=== PATIENT | male | born 1940 | race Caucasian/White ===

== ENCOUNTER → 2020-03-01 16:35 | Outpatient (BNVA) | payer MEDICARE, BC, SELFPAY | PROVIDERS: Family Provider Family Medicine; PCP Family Medicine; Visit Provider Internal Medicine | DX: R07.9 Chest pain, unspecified (principal) | CPT/HCPCS: 80048; 85025; 87635 ==

== ENCOUNTER 2020-03-05 07:57 | Day surgery (SDC) | payer MEDICARE, BC, SELFPAY ==
[2020-03-02 10:37] VITALS: BMI 29.4
[2020-03-05] VITALS (10 sets, daily range): BP systolic 106–158; BP diastolic 52–81; PULSE 39–60; RESP 12–21; TEMP 36.7; O2SAT 88–96
--- NOTE | 2020-03-05 09:00 | XACV_ITS ---
Exam Room: 1 Ht: 180 cm Wt: 96 kg BSA: 2.21 m2 Gender: Male : 1940 Any Known Allergies: Other Exam Priority: Routine Procedure(s): Procedure Description: Diagnostic procedure Procedure Description: Left Heart Catheterization Procedure Description: Left ventriculography Procedure Description: Venous Graft Catheterization Procedure Description: HAJI Graft Catheterization Procedure Description: Coronary Angiography Diagnostic Cath Status: Elective Diagnostic Findings * CX has luminal irregularities. OM1 has severe mid vessel stenosis. Flow is seen from patent SVG graft.. * LM has luminal irregularities. * LAD arises from left main artery. It gives rise to a large diagonal branch. Diagonal artery has * serial 60 to 70% stenosis in it. * The LAD has chronic total occlusion. mLAD: Severe 100% stenosis, MAR: 0 flow. Competitive flow from patent HAJI seen.. * RCA arises from right coronary cusp. * It has mild luminal irregularities. * Mid * to distal PDA has * severe 80% stenosis. * At that point it is a small sized vessel. RPDA: Severe 80% stenosis, MAR: 3 flow. * Two grafts visualized. * HAJI to dLAD: patent. * SVG to 1st OM: patent. * Coronary angiography shows right dominance. Conclusions 1. Severe blackfeet coronary artery disease.. 2. All grafts patent. 3. Patient has prior CABG. 4. Mild left ventricular systolic dysfunction. Ejection fraction of 45%. Recommendations * Mid to distal right PDA has severe stenosis. It is a small vessel at that point. If patient continues having chest pain on optimal medical therapy, we can consider intervening on this vessel. We will try optimizing medical therapy at this time.. * Initiate isosorbide mononitrate 30 mg daily. * Aggressive risk factor control. * Follow-up * with cardiology clinic. Interventional RX Recommendation: medical therapy and/or counseling Diagnostic RX Recommendation: medical therapy and/or counseling Ventriculography Ejection Fraction: 45.0 % Pressures Phase:Rest AO : 112 / 74 ( 79 ) @ 4:51:00 AM 118 / 52 ( 77 ) @ 4:54:00 AM 104 / 45 ( 67 ) @ 5:01:00 AM 108 / 39 ( 64 ) @ 5:13:00 AM LV : 107 / -2 / @ 5:12:00 AM 107 / -4 / @ 5:13:00 AM Clinical Evaluation EBL: 5mL-10mL Procedural Details Procedure Consent Obtained. Pre-Procedure Time Out. Identified patient by full name and date of as verbalized by the patient/guarantor. Does the consent match the physician's order: Yes. Accurate & Complete Informed Consent: Yes. Inpatient/Outpatient History & Physical on Chart: Yes. If H&P is completed, is and addenduem needed: No; If yes, is the addendum complete: N/A. Visualize and Verify Site with Patient/Guarantor: N/A. Relevant Radiology Images available: Yes. Pre-op teaching completed and patient verbalized understanding. The risks, benefits, and alternatives of sedation and/or procedure were discussed by physician. The patient agrees to continue. Procedure started. HA Clinical Fraility Score: 3: Managing Well. [facility] Indications: New Onset Angina. Chest Pain Symptom Assessment: Typical Angina Symptoms. Correct patient, site and procedure confirmed by cath team. Current diagnosis: Chest Pain. PERRLA. Strong, equal hand box lidder bilaterally. Lungs clear x 5 lobes. Current Diagnosis : Chest Pain. Physician arrived. IV Site on Arrival: 20 gauge in the left anticubital. IV Fluids: 0.9% NaCl at KVO. 0 mL infused prior to center medical and lab director. Pre Procedural Pulses: bilateral dorsalis pedis was 1+. Pre Procedural Pulses: bilateral posterior tibial was 1+. Pre Procedural Pulses: bilateral radial was 2+. Oxygen started at 2liters/min via nasal canula. bilateral groins was prepped with chloroprep then draped in the usual sterile fashion. Baseline sample Acquired. HR: 0 BPM. Physician scrubbed in. Immediate Pre-Procedure Time Out. Correct Patient: Yes; Correct Procedure: Yes; Correct Site: Yes; Correct Patient Position: Yes; Correct Supplies: Yes; Dried Flammable Prep: Yes; Blood Products Available: N/A;. Lidocaine 1% infiltrated to the right groin. Arterial access obtained with micropuncture set. A 5 serbian JL4 catheter in over wire. Multiple views taken of left coronary artery. Catheter inserted over the standard wire. A 5 serbian JR4 catheter in over wire. Multiple views taken of right coronary artery. SVG's to OM visualized and patent. Catheter removed over the exchange wire. A 5 serbian IM catheter in over wire. HAJI to LAD visualized. Catheter removed over the exchange wire. A 5 serbian Angled Pig catheter in over wire. Physician review of cine films. Side port of sheath attached to Normal Saline flush at KVO to maintain patency. EDP Sample taken: LV 107/-3,6; HR: 19 BPM; SpO2: 98%. LV gram performed in [place] @ 10 mL/second for a total of 30 mL. EDP Sample taken: LV 107/-5,5; HR: 51 BPM; SpO2: 97%. Pullback taken: LV Off; AO Off; Mean: , Peak to Peak: , SEP: ; HR: 35 BPM; SpO2: 98%. Catheter removed over the exchange wire. A Right femoral angiogram was performed to determine safe placement of closure device. AngioSeal Lot# [id number] placed without complications. No signs or symptoms of hematoma noted. Sterile dressing applied per usual sterile fashion. A Angio-Seal VIP ([facility]) was successful obtaining hemostatsis at the Right Femoral artery insertion site. Post Procedure: Pulses reassessed and unchanged. PERRLA. Strong, equal hand box lidder bilaterally. No VTE prophylaxis required. Medication's Wasted: Lidocaine 1% = 10 mL. Total IV fluids: 50 mL. Contrast type used: Omnipaque 300 mgI/mL, 500 mL bottle. Post-op diagnosis: CAD. Complications: None. Estimated blood loss: 5mL-10mL. Procedure completed. Medication's Wasted: Heparin = 1000 units. Patient transferred by bed to ICU. Vital chart was stopped. Access Site Site: Right Femoral artery Sheath Size: 6 Fr Hemostasis Method: Angio-Seal VIP ([facility]) Hemostasis Success: Successful Procedure Medications Start: 10:37 AM Stop: 10:37 AM Medication: Versed Amount: 1 mg Route: I.V. Start: 10:37 AM Stop: 10:37 AM Medication: Fentanyl Amount: 50 mcg Route: I.V. Start: 10:52 AM Stop: 10:52 AM Medication: Versed Amount: 1 mg Route: I.V. Start: 10:52 AM Stop: 10:52 AM Medication: Fentanyl Amount: 50 mcg Route: I.V. I, the attending physician, have reviewed and verified all procedure medications. Yes, all medications given per verbal order History/Risk Factors Hypertension: Yes Dyslipidemia: No Peripheral Arterial Disease (PAD): No Myocardial Infarction (AL): No Obesity: No Renal Disease: No Prior Interventions PCI: No CABG: Yes Valve Surgery: No Report Signatures Finalized by Yifan Rivero MD on 03/18/2020 05:40 PM
[2020-03-05] MEDS: aspirin 325 mg Tablet PO (09:13)
[2020-03-05] MEDS: diphenhydrAMINE 50 mg Capsule PO (09:13)
--- NOTE | 2020-03-05 10:36 | W.PM.OPSUD ---
Surgery/Procedure H&P Update DATE OF PROCEDURE: March 05, 2020 DATE H&P PERFORMED: 03/01/20 H&P UPDATE INFORMATION: I have reviewed H&P completed within last 30 days, I have examined patient prior to procedure and No changes to prior documentation PREOP DIAGNOSIS: UNSTABLE ANGINA PRIMARY INDICATION FOR PROCEDURE: UNSTABLE ANGINA PLANNED PROCEDURE: Operation Date: 03/05/20 10:00 Proposed Procedures p Left Cardiac Catheterization 15172 R07.9(Left) - Yifan Rivero M.D Possible percutaneous coronary intervention PATIENT REASSESSED PRIOR TO SEDATION, WITH NO CHANGE NOTED: Yes PHYSICAL EXAM: alert, oriented x 3 and clear to auscultation bilaterally AIRWAY EVAL/ANESTHESIA PLAN: ASA II, ASA III, Risks, benefits & alternatives of sedation and/or procedure discussed and Patient agrees to continue as planned
--- NOTE | 2020-03-05 16:15 | PC.NURSE ---
Patient walked in unit without difficulty. Respirations unlabored. HR 76-80. Contacted Dr. Rivero to update him prior to patient leaving.
== END 2020-03-05 16:45 | disposition home or self-care (01) ==
LOC: CCL 08:05 → ICU 11:52 → CCL 03-12 14:35 → ICU 04-10 10:05
PROVIDERS: Family Provider Family Medicine; PCP Family Medicine; Visit Provider Internal Medicine
DX: I25.110 Atherosclerotic heart disease of native coronary artery with unstable angina pectoris (principal); Z95.1 Presence of aortocoronary bypass graft; I50.22 Chronic systolic (congestive) heart failure; I11.0 Hypertensive heart disease with heart failure; I48.91 Unspecified atrial fibrillation; E11.9 Type 2 diabetes mellitus without complications; E78.5 Hyperlipidemia, unspecified
CPT/HCPCS: 12345; 36415; 93459; C1760; C1769; C1887; C1894; G0378; J1644; J2250; J3010; J7030; Q0163; Q9967

== ENCOUNTER → 2020-03-13 09:05 | Outpatient (BNVA) | payer MEDICARE, BC, SELFPAY | PROVIDERS: Family Provider Family Medicine; PCP Family Medicine; Visit Provider Nurse Practitioner Family | DX: I25.10 Atherosclerotic heart disease of native coronary artery without angina pectoris (principal) | CPT/HCPCS: 80048 ==

== ENCOUNTER 2020-11-08 16:11 | Outpatient (CLI) | payer MEDICARE, BC, SELFPAY ==
--- NOTE | 2020-11-08 16:45 | XR_ITS ---
WS: [id number] XR chest 2V insp/exp 89047 REASON FOR EXAM: R00.1 - Bradycardia, unspecified FINDINGS: Sternal sutures and previous coronary artery bypass surgery. Mild to moderate tortuosity the thoracic aorta. Heart size at the upper limits of normal. Calcified granulomatous disease in both hemithoraces. No active pulmonary parenchymal or pleural dise ase. Degenerative spondylosis in the mid and lower thoracic spine bilateral shoulder replacements. The chest is unchanged compared to 11/17/2018. XR/XR chest 2V insp/exp [id number] IMPRESSION: No acute abnormality.
== END 2020-11-08 16:12 | disposition home or self-care (01) ==
LOC: RAD 16:16
PROVIDERS: PCP Family Medicine; Visit Provider Internal Medicine Cardiovascular Disease
DX: Z01.818 Encounter for other preprocedural examination (principal); R00.1 Bradycardia, unspecified; Z20.822 Contact with and (suspected) exposure to COVID-19; I11.0 Hypertensive heart disease with heart failure; I50.9 Heart failure, unspecified; E78.5 Hyperlipidemia, unspecified; E11.9 Type 2 diabetes mellitus without complications; I48.91 Unspecified atrial fibrillation; I25.10 Atherosclerotic heart disease of native coronary artery without angina pectoris
CPT/HCPCS: 71046; 80048; 85025; 85610; 86850; 86900; 87635

== ENCOUNTER 2020-11-09 08:30 | Outpatient (CLI) | payer MEDICARE, BC, SELFPAY ==
--- NOTE | 2020-11-09 08:49 | USCV_ITS ---
Artis Boston Age: 80 Gender: M : 1940 Exam Date: 11/09/2020 09:08 Ordering Phys: Elvira Malave MD ([email or web address]) Technologist: Jaymie Iyer Exam Location: [facility] [place] Indication: dyspnea, unspecified. pre pacemaker BP: 130 / 90 HR: 48 Rhythm: Sinus Technical Quality: Adequate MEASUREMENTS (Male / Female) Normal Values 2D ECHO LV Diastolic Diameter PLAX 5.7 cm 4.2 - 5.9 / 3.9 - 5.3 cm LV Systolic Diameter PLAX 4.1 cm IVS Diastolic Thickness 1.1 cm 0.6 - 1.0 / 0.6 - 0.9 cm IVS Systolic Thickness 1.3 cm LVPW Diastolic Thickness 0.9 cm 0.6 - 1.0 / 0.6 - 0.9 cm LVPW Systolic Thickness 2.0 cm LV Ejection Fraction 2D Teich 52.4 % LV Ejection Fraction MOD 2C 48.0 % LV Ejection Fraction 2C AL 47.1 % LA Width 4.9 cm LA Height 6.8 cm RA Width 3.4 cm RA Height 5.7 cm Aorta at Sinotubular Diameter 3.9 cm M-MODE LV Diastolic Diameter MM 6.1 cm 4.2 - 5.9 / 3.9 - 5.3 cm LV Systolic Diameter MM 4.9 cm LV Ejection Fraction MM Teich 38.7 % IVS Diastolic Thickness MM 0.7 cm 0.6 - 1.0 / 0.6 - 0.9 cm IVS Systolic Thickness MM 0.8 cm LVPW Diastolic Thickness MM 0.9 cm 0.6 - 1.0 / 0.6 - 0.9 cm LVPW Systolic Thickness MM 0.0 cm DOPPLER AV Peak Velocity 108.0 cm/s LVOT Peak Velocity 92.0 cm/s MV Peak Velocity 83.0 cm/s MV Area PHT 3.1 cm squared Mitral E to A Ratio 5.1 MV E' Velocity 44.0 cm/s Mitral E to MV E' Ratio 9.3 Mitral E to LV E' Lateral Ratio 6.2 Mitral E to LV E' Septal Ratio 18.6 TR Peak Velocity 195.5 cm/s TR Peak Gradient 15.3 mmHg Right Atrial Pressure 3.0 mmHg Pulmonary Artery Systolic Pressu 18.3 mmHg PV Peak Velocity 89.0 cm/s RV Acceleration Time 0.1 s RV Ejection Time 0.3 s RV AcT/ET 0.2 FINDINGS Left Ventricle Severe diffuse hypokinesia of the septum, anteroseptum and LV apex. Mild diffuse hypokinesia of the inferior wall segments. LV ejection fraction around 40-45%(visual) Right Ventricle The right ventricle is normal in size and function. Right Atrium Mildly increased right atrial size. Left Atrium Moderately increased left atrial size. Mitral Valve Trace mitral valve regurgitation. Aortic Valve No gross abnormalities noted Tricuspid Valve Mild tricuspid valve regurgitation. Estimated pulmonary artery peak systolic pressure of 18 mmHg Pulmonic Valve No gross abnormalities noted Pericardium Normal pericardium without effusion. Aorta Normal ascending aorta dimension. CONCLUSIONS Normal LV size with diminished ejection fraction of 40 to 45%. Wall motion abnormalities as mentioned above. Moderately dilated left atrium with a mildly dilated right atrium. Mild tricuspid valve regurgitation. Estimated pulmonary artery peak systolic pressure of 18 mmHg. Trace mitral valve regurgitation. There is no pericardial effusion. There are no intracardiac masses. No previous study is available for comparison. Dr Elvira Malave MD FAC (Electronically Signed) Final Date: 09 November 2020 18:09 S
[2020-11-09 09:25] LABS: Basophils # 0.1 10^3/uL (0.0-0.1); Basophils % 0.7 %; Eosinophils # 0.2 10^3/uL (0.0-0.8); Eosinophils % 1.8 %; Hematocrit 46.6 % (42.0-52.0); Hemoglobin 15.4 g/dL (11.7-16.6); Lymphocytes # 3.2 10^3/uL (0.8-4.8); Mean Corpuscular Hemoglobin 30.3 pg (28.0-34.0); Mean Corpuscular Volume 91.7 fl (80-94); Mean Platelet Volume 12.6 fL (7.4-10.4); Monocytes # 1.6 10^3/uL (0.2-0.9); Monocytes % 11.5 %; Neutrophils # 8.59 10^3/uL (1.8-7.7); Neutrophils % 62.6 %; Nucleated Red Blood Cells % 0 %; Platelet Count 249 10^3/cmm (130-400); Red Blood Count 5.08 10^6/uL (4.1-5.3); White Blood Count 13.7 10^3/uL (4.0-10.0)
== END 2020-11-09 08:31 | disposition home or self-care (01) ==
LOC: RAD 08:40
PROVIDERS: PCP Family Medicine; Visit Provider Internal Medicine Cardiovascular Disease
DX: R06.00 Dyspnea, unspecified (principal); D72.829 Elevated white blood cell count, unspecified; I07.1 Rheumatic tricuspid insufficiency
CPT/HCPCS: 36415; 81003; 85025; 93306

== ENCOUNTER 2020-11-12 10:02 | Observation (INO) | payer MEDICARE, BC, SELFPAY ==
[2020-11-12] VITALS (7 sets, daily range): BP systolic 107–143; BP diastolic 7–76; PULSE 48–60; RESP 12–19; TEMP 36.3–36.8; O2SAT 92–94; BMI 27.6
[2020-11-12 08:02] LABS: Basophils # 0.1 10^3/uL (0.0-0.1); Basophils % 0.8 %; Eosinophils # 0.3 10^3/uL (0.0-0.8); Hematocrit 47.5 % (42.0-52.0); Hemoglobin 15.7 g/dL (11.7-16.6); Lymphocytes # 3.3 10^3/uL (0.8-4.8); Mean Corpuscular HGB Conc 33.1 g/dL (30.0-36.0); Mean Corpuscular Hemoglobin 30.1 pg (28.0-34.0); Mean Corpuscular Volume 91.2 fl (80-94); Mean Platelet Volume 12.1 fL (7.4-10.4); Monocytes # 1.2 10^3/uL (0.2-0.9); Monocytes % 9.7 %; Neutrophils # 7.77 10^3/uL (1.8-7.7); Nucleated Red Blood Cells % 0 %; Platelet Count 277 10^3/cmm (130-400); Red Blood Count 5.21 10^6/uL (4.1-5.3); Red Cell Distribution Width 13.1 % (12.1-15.1); White Blood Count 12.7 10^3/uL (4.0-10.0)
--- NOTE | 2020-11-12 08:33 | W.PM.OPSUD ---
Surgery/Procedure H&P Update DATE OF PROCEDURE: November 12, 2020 DATE H&P PERFORMED: 11/08/20 H&P UPDATE INFORMATION: I have reviewed H&P completed within last 30 days, I have examined patient prior to procedure and No changes to prior documentation PREOP DIAGNOSIS: Symptomatic bradycardia/atrial fibrillation PRIMARY INDICATION FOR PROCEDURE: Same as above PLANNED PROCEDURE: Operation Date: 11/12/20 08:30 Proposed Procedures p Pacemaker Insertion(Not Applicable) - Elvira Malave MD Operation Date: 11/14/20 12:00 Proposed Procedures p Pacemaker Insertion(Not Applicable) - Robby Hooks MD PATIENT REASSESSED PRIOR TO SEDATION, WITH NO CHANGE NOTED: Yes PHYSICAL EXAM: alert, oriented x 3, clear to auscultation bilaterally, regular rate & rhythm and operative site marked OTHER PERTINENT EXAM FINDINGS: Alert oriented x3. Normal breath sounds. Variable first heart sound. No significant peripheral edema AIRWAY EVAL/ANESTHESIA PLAN: normal airway, see other exam findings, ASA III, Monitored Anesthesia, Local Anesthesia, Risks, benefits & alternatives of sedation and/or procedure discussed and Patient agrees to continue as planned
[2020-11-12] MEDS: HYDROcodone-acetaminophen 5-325 mg Tablet 1 TAB PO ×4 (12:10→23:44)
[2020-11-12] MEDS: dextrose 5%-sod chloride 0.45% 1,000 ML 75 ML IV ×2 (12:11→23:44)
--- NOTE | 2020-11-12 13:08 | XRR_ITS ---
PROCEDURE INFORMATION: Exam: XR Chest Exam date and time: 11/12/2020 1:08 PM Age: 80 years old Clinical indication: Device placement; Cardiac pacemaker lead placement or adjustment; Prior surgery; Surgery date: Post-operative (0-2 days); Surgery type: Pacemaker, bypass, shoulder, gb; Patient HX: Pacemaker surgery today; Additional info: Post permanent pacemaker placement; Visualize lead tip TECHNIQUE: Imaging protocol: XR of the chest. Views: 1 view. COMPARISON: CR XR chest 2V insp/exp [id number] 11/08/2020 4:57 PM FINDINGS: Tubes, catheters and devices: A permanent pacemaker appears intact. Lungs: Multiple benign calcified granulomas are present in the lungs with small benign calcified hilar lymph nodes. Pleural spaces: Unremarkable. No pleural effusion. No pneumothorax. Heart/Mediastinum: The heart is not enlarged. Bones/joints: Bilateral shoulder prostheses are present unchanged. XR/XR chest 1V [id number] IMPRESSION: No acute cardiopulmonary abnormality.
--- NOTE | 2020-11-12 14:16 | ECG_ITS ---
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
[2020-11-12] MEDS: apixaban 5 mg Tablet PO (17:37)
[2020-11-12 18:38] LABS: Glucose Point of Care 246 mg/dL (70-110)
[2020-11-13] VITALS (55 sets, daily range): BP systolic 136–141; BP diastolic 70–77; PULSE 60–76; RESP 7–24; O2SAT 92–96
[2020-11-13] MEDS: HYDROcodone-acetaminophen 5-325 mg Tablet 1 TAB PO (03:53)
--- NOTE | 2020-11-13 06:00 | ECG_ITS ---
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 Measurements Intervals [place] Rate: 60 P: [place]: QRS: -57 QRSD: 216 T: 114 QT: 528 QTc: 528 Interpretive Statements ELECTRONIC VENTRICULAR PACEMAKER ABNORMAL RHYTHM ECG Compared to ECG 11/12/2020 14:23:01 No significant changes Electronically Signed On 11-14-2020 23:41:52 CDT by Elvira Malave M.D. [email or web address] [email or web address] [email or web address] cleveland [id number]
--- NOTE | 2020-11-13 08:00 | PC.NURSE ---
Pt sitting on the side of the bed eating breakfast and talking to staff. Resp even and non-labored no distress noted. Pts drsg to right chest dry and intact. Pt had no c/o pain or discomfort at the present time. No needs voiced. Will cont to monitor.
--- NOTE | 2020-11-13 08:37 | PC.CHAP ---
Pastoral Care Encounter/Spiritual Assessment Type of Contact [] Declined household personal assistant visit [] Patient/Family/Request visit [] Outpatient visit [] Follow-up visit [] Physician referral [] Code/Alert [x] Routine visit [] Staff referral [] Actively dying [x] Patient sleeping [] Family support [] [] Out of room [] Palliative care [] [] Receiving care in room [] Pre-surgical visit [] Trauma [] Long length of stay [] ICU visit [] Other: Relational/Emotional Strength [] Patient feels connected with others/family/visitors/staff [] Distress [] Loneliness/isolation [] Abandonment Spirituality of Patient [] Person of [place] [] Attends Bahai of their [place] [] Believes in Prayer [] Reads Bible or Temple materials [] There are Spiritual issues to be addressed Attache Interventions [] Prayer [] Active listening [] Non-anxious presence [] Spiritual/emotional support [] Crisis/trauma care [] Spiritual counseling [] Bereavement support [] Provided bereavement packet [] Provided Bible/devotional materials [] Provided toy/stuffed animal, coloring book to patient or family member [] Provided Communion [] Anointing/[place] [] Salvation [] Completed spiritual assessment [] Other: Impact on Illness or Injury [] Angry [] Fearful [] Anxious [] Often cries [] Exhaustion [] Unable to work [] Unable to attend nondenominational [] Unable to walk/stand [] Unable to read [] Unable to drive [] Unable to eat/drink [] Unable to sleep [] Unable to be with family [] Patient intubated [] Other: Summary Time spent with patient
--- NOTE | 2020-11-13 09:00 | PM.PN ---
Subjective Subjective: Interval history: Patient had a permanent pacer implantation yesterday. Medications: Reviewed: Yes Medication Review Details: Current Medications Hydrocodone Bitart/Acetaminophen (Hydrocodone-Acetaminophen 5-325 Mg Tablet) 1 tab PO Q4H PRN PRN Reason: MODERATE PAIN Last Admin: 11/13/20 03:53 Dose: 1 tab Documented by: Amlodipine Besylate (Amlodipine 10 Mg Tablet) 10 mg PO DAILY [facility] Apixaban (Apixaban 5 Mg Tablet) 5 mg PO BID [facility] Last Admin: 11/12/20 17:37 Dose: 5 mg Documented by: Ezetimibe (Ezetimibe 10 Mg Tablet) 10 mg PO DAILY [facility] Folic Acid (Folic Acid 1 Mg Tablet) 1 mg PO DAILY [facility] Hydrochlorothiazide (Hydrochlorothiazide 25 Mg Tablet) 25 mg PO DAILY [facility] Sodium Chloride (Sodium Chloride 0.9%) 1,000 mls @ 75 mls/hr IV .[id number] [facility] Last Admin: 11/12/20 12:14 Dose: Not Given Documented by: Dextrose/Sodium Chloride (Dextrose 5%-Sod Chloride 0.45%) 1,000 mls @ 75 mls/hr IV .[id number] [facility] Last Admin: 11/12/20 23:44 Dose: 75 mls/hr Documented by: Insulin Glargine (Insulin Glargine 100 Units/1 Ml) 20 unit SUBCUT DAILY [facility] Levothyroxine Sodium (Levothyroxine 137 Mcg Tablet) 137 mcg PO DAILY [facility] Losartan Potassium (Losartan 50 Mg Tablet) 100 mg PO DAILY [facility] Nitroglycerin (Nitroglycerin 0.4 Mg Sublingual Tablet) 0.4 mg SUBLINGUAL Q5M PRN PRN Reason: Angina Non-Formulary Medication (Coenzyme Q10 [Ultra Coq10]) 100 mg PO DAILY [facility] Non-Formulary Medication (Empagliflozin [Jardiance]) 10 mg PO DAILY [facility] Non-Formulary Medication (Flaxseed Oil) 1,000 mg PO DAILY [facility] Non-Formulary Medication (Niacin) 500 mg PO DAILY [facility] Vitamin D (Cholecalciferol (Vitamin D3) 1,000 Unit Tablet) 2,000 unit PO DAILY [facility] Vitals/I&O/Wt Last Vital Signs Temp 98.2 F 11/12/20 20:13 Pulse 60 11/13/20 07:45 Resp 15 11/13/20 07:45 BP 136/71 09/21/21 07:45 Pulse Ox 96 11/13/20 07:45 11/12/20 11/13/20 11/13/20 22:59 06:59 14:59 Intake Total 700 / 940 1060 / 2000 Output Total 500 / 500 400 / 900 100 / 100 Balance 200 / 440 660 / 1100 -100 / -100 Weight last 48 hrs Weight 198 lb Physical Exam Narrative: EXAM NARRATIVE: GENERAL: The patient is alert and oriented times three. Not in any acute distress. HEENT: No significant pallor, icterus or lymphadenopathy.Oral cavity: There are no mucous membrane lesions. NECK: Trachea appears to be central. No masses noted. No JVD or thyromegaly appreciated. RESPIRATORY: Chest is symmetrical. No intercostals muscle retraction or any accessory muscle activation. There is no chest wall tenderness. Breath sounds are heard bilaterally. No rales or rhonchi heard. No evidence of any consolidation. BREASTS: Deferred. HEART: The heart sounds are normal. No S3 or S4. No significant murmurs. No pericardial rub ABDOMEN: No vessel pulsations or distention. No tenderness. No organomegaly appreciated. Bowel sounds are normally heard. : Deferred. RECTAL: Deferred. LYMPHATIC: No lymphadenopathy noted in the neck or groin. EXTREMITIES: No edema or cyanosis. No clubbing. Peripheral pulses are palpated in fairly good volume and amplitude MUSCULOSKELETAL: No acute joint deformities or swelling SKIN: There are no significant rashes or ecchymosis NEUROPSYCHIATRIC: The patient is alert and oriented x3. Appears to be in a good mood. No tremors or rigidity noted. Data : 11/12/20 07:45 A&P Assessment and plan (1) Atrial fibrillation: Patient is on long-term oral anticoagulation. This may be restarted tomorrow. Status: Acute Qualifiers: Atrial fibrillation type: unspecified Qualified Code(s): I48.91 - Unspecified atrial fibrillation (2) Ischemic cardiomyopathy: Currently he is compensated. May continue on the current medications. Need to consider Entresto as an outpatient Status: Acute (3) Symptomatic bradycardia: Currently resolved. Status: Acute (4) HTN (hypertension): Since the blood pressure is in the normal range, patient may not require any medication changes at this time. Advised to continue on the current measures. Status: Acute Qualifiers: Hypertension type: essential hypertension Qualified Code(s): I10 - Essential (primary) hypertension Additional A&P Information If the patient is remained stable, may be discharged home today. Attestations Medical Necessity Statement*: Discharge home today Coding Level of Care Code Acute Endorsement Clerk for [facility] Fwd Diagnoses Atrial fibrillation I48.91 Atrial fibrillation type: unspecified Ischemic cardiomyopathy I25.5 Symptomatic bradycardia R00.1 HTN (hypertension) I10 Hypertension type: essential hypertension
[2020-11-13] MEDS: apixaban 5 mg Tablet PO (11:02)
[2020-11-13] MEDS: folic acid 1 mg Tablet PO (11:03)
[2020-11-13] MEDS: losartan 50 mg Tablet 100 MG PO (11:03)
[2020-11-13] MEDS: ezetimibe 10 mg Tablet PO (11:04)
[2020-11-13] MEDS: levothyroxine 137 mcg Tablet PO (11:04)
[2020-11-13] MEDS: amlodipine 10 mg Tablet PO (11:04)
[2020-11-13] MEDS: insulin glargine 100 units/1 mL 20 UNIT SUBCUT (11:05)
[2020-11-13] MEDS: hydroCHLOROthiazide 25 mg Tablet PO (11:05)
--- NOTE | 2020-11-13 13:40 | PC.NURSE ---
Pt discharged home. Pts IV removed no redness or swelling noted. Pts discharge instructions given along with prescriptions and follow up appointments. Pt had no c/o pain or discomfort at the time of discharge. Pt transferred out via wheelchair accompanied by staff.
--- NOTE | 2020-11-14 12:11 | PC.SOCIAL ---
discharge follow up call made. patient reports he is feeling great. patient picked up new medications, taking as prescribed. pain medications helping with pain. discussed with patient to restart Eliquis today, verbalized understanding. patient is aware of follow up appointment dates and times. no questions or concerns voiced.
--- NOTE | 2020-11-28 13:41 | PM.OP ---
Operative Report Date of procedure: November 28, 2020 Pre-op Diagnosis: Symptomatic bradycardia/atrial fibrillation Procedure: LOCATION: Outpatient PREOPERATIVE DIAGNOSES: Chronic atrial fibrillation/symptomatic bradycardia POSTOPERATIVE DIAGNOSES: Same. COMPLICATIONS: None ESTIMATED BLOOD LOSS: Around 5 milliliters. BRIEF HISTORY: 80-year-old white male with a history of chronic atrial fibrillation presented with complaints of dizziness/near syncopal episode/lethargy. He was found to have episodes of prolonged pauses of more than 3 seconds on the event monitor. For further management of the patient's condition, a permanent pacemaker implantation was recommended. A single-chamber permanent pacemaker implantation was recommended for further management because of atrial fibrillation. The procedure was explained to the patient in detail with the risks and benefits. The risks of bleeding, hematoma, vascular injury, infection, pneumothorax, myocardial perforation and other concomitant complications were explained in detail, which the patient understood well and consented to proceed. PROCEDURE DESCRIPTION: The patient was brought to the Cardiac Catheterization Lab. The left and the right side of the neck and the subclavian area were cleaned and draped in a sterile fashion. 1% Xylocaine was used as the local anesthetic agent. A left subclavian venous access was obtained using a micropuncture needle system, under fluoroscopic guidance, after injecting 20 mL of Omnipaque in the left antecubital vein. A 2-inch long incision was made 2.0 centimeters below the midclavicular region. By sharp and blunt dissection, a pacemaker pocket was made. Over the guidewire, a 7-Setswana venous sheath with dilator was advanced. The venous dilator and the guidewire were taken out. A screw-in ventricular lead was advanced through the venous sheath and was positioned towards the right ventricle. Under fluoroscopy guidance, the ventricular lead was positioned toward the right ventricular apex. Good pacing and sensing thresholds were obtained. The lead was secured to the endocardium by advancing the helix. The stability of the lead was tested by gentle twisting movements and also by asking the patient to take some deep breaths and cough The venous sheath was peeled off at this time. The lead was secured to the pectoralis fascia by suturing with 1-0 Surgilon. The pacemaker pocket was copiously irrigated with Vancomycin solution. Complete hemostasis was achieved. Sponge counts were confirmed. The leads was attached to a Medtronic generator.The generator was placed in an antibiotic sleeve (Tyrx). The lead was positioned behind the generator and the generator was attached to the pectoralis fascia by suturing with 0 Surgilon. The pocket was closed in layers. Skin was approximated using 4-0 Vicryl. IMPLANTED DEVICES: VENTRICULAR LEAD: Model number: 5076/52 Serial number: [id number] Make:ClickDelivery GENERATOR Model number: [id number] Serial number: [id number] Brand: [place] XT SR MRI SureScan Make: Medtronic IMPLANTATION DATA: With the pacing system analyzer, the R-wave sensing was 14.1 millivolts with a lead impedance of 838 ohms and a pacing threshold of 0.4 volts at 0.5 milliseconds. Through the device, the R-wave sensing was 18.0 millivolts with a lead impedance of 741 and a pacing threshold of 0.5 volts at 0.4 milliseconds. The pacemaker was set for VVIR mode with upper rate of 130 and a lower rate of 60. A pressure dressing was applied over the pacemaker site. The patient was transferred to the Medical Floor in stable condition. A chest x-ray was ordered to confirm the lead position and also to rule out any pneumothorax.
== END 2020-11-13 13:27 | disposition home or self-care (01) ==
LOC: CSU 10:03
PROVIDERS: Admitting Provider Internal Medicine Cardiovascular Disease; PCP Family Medicine; Visit Provider Internal Medicine Cardiovascular Disease
DX: I48.91 Unspecified atrial fibrillation (principal); I25.5 Ischemic cardiomyopathy; R00.1 Bradycardia, unspecified; I11.0 Hypertensive heart disease with heart failure; I50.9 Heart failure, unspecified; I25.10 Atherosclerotic heart disease of native coronary artery without angina pectoris; Z95.1 Presence of aortocoronary bypass graft; E78.5 Hyperlipidemia, unspecified; E11.9 Type 2 diabetes mellitus without complications; Z79.4 Long term (current) use of insulin
CPT/HCPCS: 33207; 36415; 36416; 71045; 82962; 85025; 93005; 96372; 97165; C1769; C1779; C1786; C1894; G0378; J0690; J1815; J2250; J3010; J7030; J7050; J7799; Q9967

== ENCOUNTER → 2020-12-06 15:11 | Outpatient (BNVA) | payer MEDICARE, BC, SELFPAY | PROVIDERS: PCP Family Medicine; Visit Provider Internal Medicine Cardiovascular Disease | DX: Z01.818 Encounter for other preprocedural examination (principal); R00.1 Bradycardia, unspecified; R06.00 Dyspnea, unspecified; I48.91 Unspecified atrial fibrillation; I50.9 Heart failure, unspecified; E11.9 Type 2 diabetes mellitus without complications; E78.5 Hyperlipidemia, unspecified; I10 Essential (primary) hypertension; I20.0 Unstable angina; Z20.822 Contact with and (suspected) exposure to COVID-19; I25.5 Ischemic cardiomyopathy; R06.02 Shortness of breath; I50.33 Acute on chronic diastolic (congestive) heart failure | CPT/HCPCS: 80048; 83880 ==

== ENCOUNTER → 2021-03-06 16:35 | Outpatient (BNVA) | payer MEDICARE, BC, SELFPAY | PROVIDERS: PCP Family Medicine; Visit Provider Internal Medicine Cardiovascular Disease | DX: R00.1 Bradycardia, unspecified (principal); R06.00 Dyspnea, unspecified; Z01.818 Encounter for other preprocedural examination; I48.91 Unspecified atrial fibrillation; I50.9 Heart failure, unspecified; E11.9 Type 2 diabetes mellitus without complications; E78.5 Hyperlipidemia, unspecified; I10 Essential (primary) hypertension; I25.10 Atherosclerotic heart disease of native coronary artery without angina pectoris; I20.0 Unstable angina; Z20.822 Contact with and (suspected) exposure to COVID-19; Z01.812 Encounter for preprocedural laboratory examination; I25.5 Ischemic cardiomyopathy; R06.02 Shortness of breath; I50.33 Acute on chronic diastolic (congestive) heart failure; I50.20 Unspecified systolic (congestive) heart failure | CPT/HCPCS: 80048; 83880 ==

== ENCOUNTER → 2021-04-08 09:44 | Outpatient (BNVA) | payer MEDICARE, BC, SELFPAY | PROVIDERS: PCP Family Medicine; Visit Provider Nurse Practitioner Family | DX: I25.5 Ischemic cardiomyopathy (principal) | CPT/HCPCS: 80048 ==

== ENCOUNTER → 2021-04-15 09:20 | Outpatient (BNVA) | payer MEDICARE, BC, SELFPAY | PROVIDERS: PCP Family Medicine; Visit Provider Nurse Practitioner Family | DX: I25.5 Ischemic cardiomyopathy (principal) | CPT/HCPCS: 80048 ==

== ENCOUNTER → 2021-05-06 12:48 | Outpatient (BNVA) | payer MEDICARE, BC, SELFPAY | PROVIDERS: PCP Family Medicine; Visit Provider Nurse Practitioner Family | DX: I25.5 Ischemic cardiomyopathy (principal); I50.22 Chronic systolic (congestive) heart failure | CPT/HCPCS: 99214 ==

== ENCOUNTER 2021-05-13 13:31 | Outpatient (CLI) | payer MEDICARE, BC, SELFPAY ==
[2021-05-13 18:58] LABS: Anion Gap 17.5 (5-19); Blood Urea Nitrogen 18 mg/dL (8-23); Carbon Dioxide 23 mmol/L (22-29); Chloride 101 mmol/L (98-107); Glucose 178 mg/dL (65-115); Osmolality Calculated 290 mOsm/kg (285-295); Potassium 4.5 mmol/L (3.5-5.1); Sodium 137 mmol/L (136-145)
== END 2021-05-13 13:32 | disposition home or self-care (01) ==
LOC: LAB 13:34
PROVIDERS: PCP Family Medicine; Visit Provider Nurse Practitioner Family
DX: I50.22 Chronic systolic (congestive) heart failure (principal)
CPT/HCPCS: 36415; 80048

== ENCOUNTER → 2021-05-24 11:00 | Outpatient (BNVA) | payer MEDICARE, BC, SELFPAY | PROVIDERS: PCP Family Medicine; Visit Provider Internal Medicine Cardiovascular Disease | DX: R00.1 Bradycardia, unspecified (principal); Z95.0 Presence of cardiac pacemaker; I48.91 Unspecified atrial fibrillation ==

== ENCOUNTER → 2021-07-09 16:18 | Outpatient (BNVA) | payer MEDICARE, BC, SELFPAY | PROVIDERS: PCP Family Medicine; Visit Provider Family Medicine | DX: R35.0 Frequency of micturition (principal) | CPT/HCPCS: 81000; 87086 ==

== ENCOUNTER 2021-07-23 11:58 | Outpatient (CLI) | payer MEDICARE, BC, SELFPAY ==
--- NOTE | 2021-07-23 12:18 | CT_ITS ---
WS: [id number] CT NECK TECHNIQUE: Contrast-enhanced CT of the neck with coronal and sagittal reformatted images. CLINICAL INFORMATION: DYSPHAGIA COMPARISON: None. DLP: 257.[address] scans at [facility] use at least one of these dose optimization techniques: automated e xposure control; mA and/or kV adjustment per patient size (includes targeted exams where dose is matc hed to clinical indication); or iterative reconstruction. FINDINGS: Mastoid air cells are well aerated. Mild mucosal thickening in the ethmoid air cells. Dental artifact degrades images at the tongue base. Normal parapharyngeal fat. No evidence of supraglottic or glotti c mass. Prior sternotomy. Lung apices are well aerated. Calcified granulomas in the lung apices. Norm al posterior nasopharynx. Normal parapharyngeal fat. Normal vallecula and epiglottis. Normal piriform sinuses. Normal glottis. Normal subglottic airway. Moderate spondylitic changes cervical spine. Mild cervical curve.Moderate bilateral carotid bulb calcification. CT/CT neck w con* [id number] IMPRESSION: 1. No evidence of supraglottic or glottic mass. Normal subglottic airway. 2. Normal salivary glands. 3. No cervical lymphadenopathy. 4. Moderate bilateral carotid bulb calcification. 5. Moderate spondylitic changes cervical spine.
[2021-07-23 13:11] LABS: Blood Urea Nitrogen 12 mg/dL (8-23)
[2021-07-23] MEDS: iohexol 300 mg/mL 100 mL Btl IV (13:24)
== END 2021-07-23 11:59 | disposition home or self-care (01) ==
LOC: RAD 12:00
PROVIDERS: PCP Family Medicine; Visit Provider Specialist
DX: R13.10 Dysphagia, unspecified (principal)
CPT/HCPCS: 70491; 82565; 84520

== ENCOUNTER 2021-07-29 11:24 | Outpatient (CLI) | payer MEDICARE, BC, SELFPAY ==
--- NOTE | 2021-07-29 11:37 | FL_ITS ---
WS: [id number] MODIFIED BARIUM SWALLOW HISTORY: Other dysphagia FLUOROSCOPY TIME: 1min [id number] # of spot films: 0 Modified barium swallow was performed by the speech pathologist. Fluoroscopy was provided with the pa tient in a lateral projection. Multiple food consistencies were provided. During swallowing small collections of barium were noted probably representing small oropharyngeal po uches. No aspiration or penetration was noted. Mild delay in swallowing and mild pharyngeal coating. Patient swallowed the barium tablet without difficulty. FL/FL barium swallow modifd [id number] IMPRESSION: 1. No aspiration or laryngeal penetration. Please see speech therapist report also for recommendations.
== END 2021-07-29 11:25 | disposition home or self-care (01) ==
LOC: RAD 11:31
PROVIDERS: PCP Family Medicine; Visit Provider Specialist
DX: R13.10 Dysphagia, unspecified (principal)
CPT/HCPCS: 74230; 92611

== ENCOUNTER → 2021-09-06 10:30 | Outpatient (BNVA) | payer MEDICARE, BC, SELFPAY | PROVIDERS: PCP Family Medicine; Visit Provider Internal Medicine Cardiovascular Disease | DX: Z45.010 Encounter for checking and testing of cardiac pacemaker pulse generator [battery] (principal) | CPT/HCPCS: 93279 ==

== ENCOUNTER → 2021-09-09 13:39 | Outpatient (BNVA) | payer MEDICARE, BC, SELFPAY | PROVIDERS: PCP Family Medicine; Visit Provider Internal Medicine Cardiovascular Disease | DX: I25.5 Ischemic cardiomyopathy (principal); I48.91 Unspecified atrial fibrillation; Z79.01 Long term (current) use of anticoagulants; E09.9 Drug or chemical induced diabetes mellitus without complications; Z95.0 Presence of cardiac pacemaker; I10 Essential (primary) hypertension; E78.5 Hyperlipidemia, unspecified; Z79.84 Long term (current) use of oral hypoglycemic drugs | CPT/HCPCS: 99214 ==

== ENCOUNTER 2021-10-10 14:25 | Outpatient (CLI) | payer MEDICARE, BC, SELFPAY ==
--- NOTE | 2021-10-10 14:31 | USCV_ITS ---
Artis Boston Age: 81 Gender: M : 1940 Exam Date: 10/10/2021 15:07 Ordering Phys: Gilbert Dempsey DO Technologist: MARIA DEL CARMEN Exam Location: [facility] [place] Indication: CHRONIC HEART FAILURE BP: 140 / 84 HR: 59 Rhythm: Atrial fibrillation Technical Quality: Adequate MEASUREMENTS (Male / Female) Normal Values 2D ECHO LV Diastolic Diameter PLAX 6.2 cm 4.2 - 5.9 / 3.9 - 5.3 cm LV Systolic Diameter PLAX 4.8 cm IVS Diastolic Thickness 1.2 cm 0.6 - 1.0 / 0.6 - 0.9 cm IVS Systolic Thickness 1.4 cm LVPW Diastolic Thickness 1.3 cm 0.6 - 1.0 / 0.6 - 0.9 cm LVPW Systolic Thickness 1.8 cm LVOT Diameter 2.0 cm LV Ejection Fraction 2D Teich 43.1 % LV Ejection Fraction MOD 2C 26.1 % LV Ejection Fraction 2C AL 26.7 % LA Diameter 3.7 cm LA Width 4.8 cm LA Height 6.9 cm RA Width 3.6 cm RA Height 5.5 cm Aorta at Sinotubular Diameter 2.6 cm M-MODE Aortic Annulus Diameter 3.6 cm LA Ao Ratio MM 0.8 MV E Point Septal Separation 0.7 cm DOPPLER AV Peak Velocity 86.0 cm/s LVOT Peak Velocity 61.0 cm/s AV Area Cont Eq vti 2.8 cm squared AV Area Cont Eq pk 2.3 cm squared MV Peak Velocity 73.0 cm/s MV Area PHT 2.6 cm squared MV E' Velocity 39.5 cm/s Mitral E to MV E' Ratio 9.0 Mitral E to LV E' Lateral Ratio 6.3 Mitral E to LV E' Septal Ratio 15.8 TR Peak Velocity 252.9 cm/s TR Peak Gradient 25.6 mmHg TR Mean Velocity 221.3 cm/s TR Mean Gradient 20.1 mmHg TR Velocity Time Integral 86.8 cm TV Peak E Velocity 60.0 cm/s Right Atrial Pressure 8.0 mmHg Pulmonary Artery Systolic Pressu 33.6 mmHg PV Peak Velocity 69.0 cm/s RV Acceleration Time 0.0 s RV Ejection Time 0.3 s RV AcT/ET 0.2 FINDINGS Left Ventricle Diffuse hypokinesia of the left ventricle, more so of the septum and the inferior wall. LV ejection fraction around 40%. Mildly dilated LV cavity. Right Ventricle Normal right ventricular size and systolic function. Catheter/pacemaker wire in the right ventricular cavity. Right Atrium Mildly increased right atrial size. Catheter/pacemaker wire in the right atrial cavity. Left Atrium Moderately increased left atrial size. Mitral Valve Trace mitral valve regurgitation. Aortic Valve Thickened aortic valve. Tricuspid Valve Mild to moderate tricuspid valve regurgitation. Pulmonic Valve No gross abnormalities noted Pericardium No pericardial effusion. Aorta Normal ascending aorta dimension. IVC Normal inferior vena cava. CONCLUSIONS Mildly dilated LV cavity with very diminished ejection fraction of 40%. Multiple wall motion normalities as mentioned above. Moderately increased left atrial size. Mildly increased right atrial size. Catheter/pacemaker wire in the right atrial cavity. Normal right ventricular size and systolic function. Pacemaker wire in the right atrium/right ventricle Mild to moderate tricuspid valve regurgitation. Trace mitral valve regurgitation. Estimated pulmonary artery peak systolic pressure of 34 mmHg. There are no intracardiac masses. There is no pericardial effusion. Compared to the study from 11/09/2020, there may not be a significant change Dr Elvira Malave MD [facility] (Electronically Signed) Final Date: 10 October 2021 22:39 S
== END 2021-10-10 14:26 | disposition home or self-care (01) ==
LOC: RAD 14:26
PROVIDERS: PCP Family Medicine; Visit Provider Family Medicine
DX: R13.10 Dysphagia, unspecified (principal); I50.9 Heart failure, unspecified; I87.2 Venous insufficiency (chronic) (peripheral)
CPT/HCPCS: 93306

== ENCOUNTER → 2021-12-27 10:46 | Outpatient (BNVA) | payer MEDICARE, BC, SELFPAY | PROVIDERS: PCP Family Medicine; Visit Provider Internal Medicine Cardiovascular Disease | DX: Z45.010 Encounter for checking and testing of cardiac pacemaker pulse generator [battery] (principal) | CPT/HCPCS: 93279 ==

== ENCOUNTER → 2022-04-08 09:56 | Outpatient (BNVA) | payer MEDICARE, BC, SELFPAY | PROVIDERS: PCP Family Medicine; Visit Provider Internal Medicine Cardiovascular Disease | DX: I48.91 Unspecified atrial fibrillation (principal); Z95.0 Presence of cardiac pacemaker; I25.5 Ischemic cardiomyopathy; I25.10 Atherosclerotic heart disease of native coronary artery without angina pectoris; E78.5 Hyperlipidemia, unspecified; E09.9 Drug or chemical induced diabetes mellitus without complications; R20.9 Unspecified disturbances of skin sensation; Z95.1 Presence of aortocoronary bypass graft; I11.0 Hypertensive heart disease with heart failure; I50.9 Heart failure, unspecified; Z79.01 Long term (current) use of anticoagulants; Z79.4 Long term (current) use of insulin | CPT/HCPCS: 99214 ==

== ENCOUNTER 2022-04-15 12:58 | Outpatient (CLI) | payer MEDICARE, BC, SELFPAY ==
--- NOTE | 2022-04-15 13:45 | USCV_ITS ---
Artis Boston Age: 82 Gender: M : 1940 Exam Date: 04/15/2022 13:48 Ordering Phys: Elvira Malave MD ([email or web address] Technologist: VINEET Exam Location: [facility] [place] Indication: COLD FEET Risk Factors: Previous Vascular Surgery: RIGHT LEFT BP: 127.0 / 63.00 BP: 122.0/ 60.00 0 0 Waveform Velocity (cm/s) Velocity (cm/s) Waveform Triphasic 81.0 Iliac Prox 62.4 Triphasic Triphasic 79.6 Iliac Mid 67.9 Triphasic Triphasic 67.2 Iliac Distal 54.6 Triphasic Triphasic 99.2 COAT FITTER 93.3 Triphasic Triphasic 79.2 SFA Prox 75.2 Triphasic Triphasic 76.9 SFA Mid 72.6 Triphasic Triphasic 82.3 SFA Dist 64.9 Triphasic Triphasic 66.8 POP 60.5 Biphasic Biphasic 63.8 BAKER PASTRY 93.7 Biphasic Biphasic 110.3 DPA 65.1 Biphasic 1.3 GUZMAN 1.4 FINDINGS Mild diffuse plaques in the iliac, femoral, popliteal and infrapopliteal vessels bilaterally Normal /near normal arterial Doppler waveforms Resting GUZMAN 1.3 on the right side and 1.4 on the left CONCLUSIONS Supranormal resting ABIs bilaterally suggesting extensive arterial sclerosis. Mild diffuse plaque in the iliac, femoral, popliteal and infrapopliteal vessels bilaterally No significant arterial obstruction, based on the above findings Dr Elvira Malave MD [facility] (Electronically Signed) Final Date: 18 April 2022 09:32 S
== END 2022-04-15 12:59 | disposition home or self-care (01) ==
LOC: RAD 13:03
PROVIDERS: PCP Family Medicine; Visit Provider Internal Medicine Cardiovascular Disease
DX: I73.9 Peripheral vascular disease, unspecified (principal); R20.9 Unspecified disturbances of skin sensation
CPT/HCPCS: 93925; 99214

== ENCOUNTER → 2022-05-29 14:18 | Outpatient (BNVA) | payer MEDICARE, BC, SELFPAY | PROVIDERS: PCP Family Medicine; Visit Provider Family Medicine | DX: E09.9 Drug or chemical induced diabetes mellitus without complications (principal); E78.5 Hyperlipidemia, unspecified; I10 Essential (primary) hypertension; I48.91 Unspecified atrial fibrillation; I25.5 Ischemic cardiomyopathy; L03.90 Cellulitis, unspecified; Z00.00 Encounter for general adult medical examination without abnormal findings | CPT/HCPCS: 80053; 80061; 83036; 85025 ==

== ENCOUNTER → 2022-07-10 10:42 | Outpatient (BNVA) | payer MEDICARE, BC, SELFPAY | PROVIDERS: PCP Family Medicine; Visit Provider Family Medicine | DX: M79.672 Pain in left foot (principal); M21.612 Bunion of left foot | CPT/HCPCS: 73630 ==

== ENCOUNTER → 2022-07-28 14:19 | Outpatient (BNVA) | payer MEDICARE, BC, SELFPAY | PROVIDERS: PCP Family Medicine; Visit Provider Nurse Practitioner | DX: B02.8 Zoster with other complications (principal); L30.8 Other specified dermatitis; B02.29 Other postherpetic nervous system involvement | CPT/HCPCS: 82607 ==

== ENCOUNTER → 2022-08-28 12:47 | Outpatient (BNVA) | payer MEDICARE, BC, SELFPAY | PROVIDERS: PCP Family Medicine; Visit Provider Family Medicine | DX: I10 Essential (primary) hypertension (principal); E78.5 Hyperlipidemia, unspecified; E11.9 Type 2 diabetes mellitus without complications; Z13.6 Encounter for screening for cardiovascular disorders | CPT/HCPCS: 80053; 80061; 83036 ==

== ENCOUNTER → 2022-10-14 15:18 | Outpatient (BNVA) | payer MEDICARE, BC, SELFPAY | PROVIDERS: PCP Family Medicine; Visit Provider Internal Medicine Cardiovascular Disease | DX: I48.91 Unspecified atrial fibrillation (principal); Z95.0 Presence of cardiac pacemaker; I25.5 Ischemic cardiomyopathy; I11.0 Hypertensive heart disease with heart failure; I50.22 Chronic systolic (congestive) heart failure; E09.9 Drug or chemical induced diabetes mellitus without complications; Z79.4 Long term (current) use of insulin; E78.5 Hyperlipidemia, unspecified; I25.10 Atherosclerotic heart disease of native coronary artery without angina pectoris; Z79.01 Long term (current) use of anticoagulants | CPT/HCPCS: 99214 ==

== ENCOUNTER 2022-10-29 12:40 | Outpatient (CLI) | payer MEDICARE, BC, SELFPAY ==
--- NOTE | 2022-10-29 13:00 | USCV_ITS ---
Artis Boston Age: 82 Gender: M : 1940 Exam Date: 10/29/2022 12:56 Ordering Phys: Elvira Malave MD ([email or web address]) Technologist: Gricelda Garcias Exam Location: [facility] – [place] Indication: RECHECK ON CARDIOMYOPATHY BP: / HR: 59 Rhythm: PACED Technical Quality: Adequate MEASUREMENTS (Male / Female) Normal Values 2D ECHO LV Diastolic Diameter PLAX 5.2 cm 4.2 - 5.9 / 3.9 - 5.3 cm LV Systolic Diameter PLAX 4.1 cm LV Chamber Size 4.0 cm IVS Diastolic Thickness 1.2 cm 0.6 - 1.0 / 0.6 - 0.9 cm IVS Systolic Thickness 1.2 cm LVPW Diastolic Thickness 1.2 cm 0.6 - 1.0 / 0.6 - 0.9 cm LVPW Systolic Thickness 1.1 cm RV Chamber Size 5.9 cm LVOT Diameter 2.1 cm LV Ejection Fraction 2D Teich 43.8 % LV Ejection Fraction MOD 2C 46.0 % LV Ejection Fraction 2C AL 49.1 % LA Diameter 5.5 cm LA Width 3.5 cm LA Height 5.4 cm RA Width 5.8 cm RA Height 4.8 cm Aorta at Sinotubular Diameter 3.0 cm M-MODE Aortic Annulus Diameter 4.3 cm LA Ao Ratio MM 1.3 MV E Point Septal Separation 1.1 cm DOPPLER AV Peak Velocity 100.0 cm/s LVOT Peak Velocity 77.0 cm/s AV Area Cont Eq vti 2.5 cm squared AV Area Cont Eq pk 2.6 cm squared MV Area PHT 1.5 cm squared MV E' Velocity 41.0 cm/s Mitral E to MV E' Ratio 6.4 Mitral E to LV E' Lateral Ratio 4.5 Mitral E to LV E' Septal Ratio 11.0 TR Peak Velocity 254.9 cm/s TR Peak Gradient 26.0 mmHg TR Mean Velocity 192.0 cm/s TR Mean Gradient 16.9 mmHg TR Velocity Time Integral 90.8 cm TV Peak E Velocity 60.0 cm/s RV Acceleration Time 0.2 s RV Ejection Time 0.3 s RV AcT/ET 0.5 FINDINGS Left Ventricle Diffuse hypokinesia of the left ventricular ejection fraction of 45%. Mild dilated LV cavity. Right Ventricle Normal RV size and borderline normal ejection fraction. Pacemaker lead is noted in the right ventricle Right Atrium Moderately increased right atrial size. Pacemaker wire noted Left Atrium Moderately increased left atrial size. Mitral Valve No gross abnormalities noted Aortic Valve No gross abnormalities noted . Tricuspid Valve [id number] tricuspid valve regurgitation. Pulmonic Valve Pulmonic valve not well visualized. Pericardium Normal pericardium without effusion. Aorta Normal ascending aorta dimension. IVC Inferior vena cava not visualized. CONCLUSIONS Diffuse hypokinesia of the left ventricular ejection fraction of 45%. Mild dilated LV cavity. Moderate biatrial enlargement [id number] tricuspid valve regurgitation. Estimated pulmonary artery peak systolic pressure, within normal limits Pacemaker wire in the right atrium and right ventricle. There is no pericardial effusion. Compared to the study from 10/10/2021, there may not be a significant change Dr Elviar Malave MD [facility] (Electronically Signed) Final Date: 30 October 2022 09:50 S
== END 2022-10-29 12:41 | disposition home or self-care (01) ==
LOC: RAD 12:41
PROVIDERS: PCP Family Medicine; Visit Provider Internal Medicine Cardiovascular Disease
DX: R06.09 Other forms of dyspnea (principal); I42.9 Cardiomyopathy, unspecified; I07.1 Rheumatic tricuspid insufficiency; Z95.0 Presence of cardiac pacemaker
CPT/HCPCS: 93306; J3010

== ENCOUNTER → 2022-12-09 12:51 | Outpatient (BNVA) | payer MEDICARE, BC, SELFPAY | PROVIDERS: PCP Family Medicine; Visit Provider Family Medicine | DX: Z13.6 Encounter for screening for cardiovascular disorders (principal); E78.5 Hyperlipidemia, unspecified; E11.9 Type 2 diabetes mellitus without complications; I50.9 Heart failure, unspecified; E09.9 Drug or chemical induced diabetes mellitus without complications | CPT/HCPCS: 80053; 80061; 83036 ==

== ENCOUNTER 2023-01-12 14:54 | Emergency (ER) | payer MEDICARE, BC, SELFPAY ==
[2023-01-12 14:52] VITALS: BP 162/73; PULSE 59; RESP 16; TEMP 36.7; O2SAT 97; BMI 26.4
--- NOTE | 2023-01-12 15:14 | ED_ITS ---
HPI - Extremity Injury (Lower) General: Chief Complaint: Extremity Problem,Nontraumatic Stated Complaint: right knee pain [id number] Time Seen by Provider: 01/12/23 15:05 Source: patient Mode of arrival: wheelchair Limitations: no limitations History of Present Illness: Patient is a nice 82-year-old male who presents to ED today with complaint of pain and swelling to his right knee. Symptoms initially started 2 weeks ago after he was getting up/sitting down and heard a pop to the knee. Patient states he has been seen by his primary care provider as well as orthopedic physician Dr. Navarrete. He states he has had negative x-rays performed. He states Dr. Navarrete wanted to order an MRI but this could not be completed due to a pacemaker. He states he was supposed to order a CT scan but has not heard back from their office. Patient states he is taking hydrocodone for his pain and this does seem to control his pain when he takes it. He states he can ambulate with the help of a walker. MD complaint: knee injury Onset (ago): week(s) Injury: Right: knee Place: home Severity: moderate Relieving factors: immobilization Exacerbating factors: weight bearing, movement and palpation Associated symptoms: Reports no associated symptoms Other symptoms: none Review of Systems Card: Denies: chest pain Resp: Denies: dyspnea Musc: Reports: joint pain and joint swelling; Denies: neck pain, back pain, extremity pain or extremity swelling Neuro: Denies: numbness in extremities, weakness in extremities or sensory changes PFS ED PFSH: Medical History Anticoagulant long-term use ASHD (arteriosclerotic heart disease) Atrial fibrillation A. fib with slow ventricular rate CHF (congestive heart failure) Diabetes Dyslipidemia HTN (hypertension) HZV (herpes zoster virus) post herpetic neuralgia Pacemaker Surgical History Previous back surgery S/P appendectomy S/P CABG (coronary artery bypass graft) S/P carpal tunnel release S/P cholecystectomy S/P knee surgery S/P shoulder replacement Family History Sister Cancer Mother Diabetes Denies family history of CAD (coronary artery disease) Clotting disorder Dementia Chronic kidney disease (CKD) Suicide Anesthesia complication Bleeding disorder Lung disease Stroke Social History Smoking and tobacco/nicotine status: never used tobacco/nicotine Second hand smoke exposure: No Alcohol intake: never Substance/Drug Use: never Adopted: No Caregiver/support person: No Lives independently: Yes Household members: spouse Housing: House Marital status: Current occupational status: retired Do you think of yourself as: Straight/Heterosexual Current gender identity: Female Physical Exam Const: COMMON NORMALS: no acute distress, average body habitus, patient oriented x3, no limitations, healthy appearing, alert and well nourished Resp: COMMON NORMALS: normal respiratory effort and clear to auscultation bilaterally AUSCULTATION: clear to auscultation bilaterally Cardio: COMMON NORMALS: regular rate and regular rhythm RATE: regular rate RHYTHM: regular rhythm Extremity: COMMON NORMALS: capillary refill normal and no calf tenderness GENERAL: Yes normal exam except as noted RIGHT LOWER EXTREMITY: Yes knee joint (swelling throughout R knee joint) Right knee: Yes inspection (effusion; ecchymosis noted posteriorly ) and Yes neurovascular exam (normal) Neuro: COMMON NORMALS: patient oriented x3, moves all extremities, no focal motor deficits and no sensory deficits noted SENSORIUM/ORIENTATION: Yes alert Course Vital Signs: Vital signs: Vital Signs Temperature 98.0 F 01/12/23 14:52 Pulse Rate 59 L 01/12/23 14:52 Respiratory Rate 16 01/12/23 14:52 Blood Pressure 162/73 01/12/23 14:52 Pulse Oximetry 97 01/12/23 14:52 Oxygen Delivery Me thod Room Air 01/12/23 14:52 MDM - Extremity Injury (Lower) Medical Decision Making I contacted Dr. Navarrete's office who stated they submitted an order for a stat CT scan around 10 AM this morning. They are waiting on scheduling to get this scheduled for patient. There is no need for emergent CT imaging today here in the emergency department. I suspect right internal derangement of the knee. Plan will be for CT scan through Dr. Navarrete's office and follow-up with him. Offered ortho referral here but he is happy with Dr. Navarrete and would like to continue his care through him. Medical Records I reviewed the patient's medical records. No radiology studies performed this visit Discharge Plan Discharge Patient Disposition: Home Clinical Impression: Acute internal derangement of right knee Condition: Stable Prescriptions: No Action Ultra CoQ10 75 mg capsule 100 mg PO DAILY nitroglycerin [Nitrostat] 0.4 mg tablet, sublingual 0.4 mg SUBLINGUAL Q5M PRN (Reason: Angina) Rx Instructions: do not exceed 3 doses per episode cholecalciferol (vitamin D3) 50 mcg (2,000 unit) capsule 50 mcg PO DAILY folic acid 400 mcg tablet 0.4 mg PO DAILY zinc 50 mg tablet 50 mg PO DAILY duloxetine [Cymbalta] 20 mg capsule,delayed release(DR/EC) 20 mg PO BID Qty: 60 0RF magnesium 200 mg tablet 200 mg PO DAILY multivitamin Tablet 2 tab PO DAILY amlodipine 10 mg tablet See Rx Instructions .ROUTE .COMPLEX Qty: 90 3RF Dose Instruction: TAKE 1 TABLET DAILY Rx Instructions: TAKE 1 TABLET DAILY Eliquis 5 mg tablet 5 mg PO BID 90 Days Qty: 180 2RF Hold Instructions: Resume on 11/14/20. Restart Eliquis tomorrow morning Entresto 97-103 mg tablet See Rx Instructions .ROUTE .COMPLEX Qty: 180 3RF Dose Instruction: TAKE 1 TABLET TWICE A DAY Rx Instructions: TAKE 1 TABLET TWICE A DAY ezetimibe [Zetia] 10 mg tablet 10 mg PO DAILY Qty: 90 3RF hydrocodone-acetaminophen 10-325 mg tablet 1 tab PO Q6H PRN (Reason: pain from knee injury) 5 Days Qty: 20 0RF (DME) syringes/needles, 31g, 1ml See Rx Instructions .Route .MEDSUPPLY Qty: 100 3RF Rx Instructions: use for injecton of insulin daily. Lantus U-100 Insulin 100 unit/mL solution See Rx Instructions .ROUTE .COMPLEX Qty: 30 3RF Dose Instruction: INJECT 20 UNITS UNDER THE SKIN EVERY EVENING INCREASED NIGHTLY BY 5 UNITS UNTIL FASTING SUGARS ARE 150 Rx Instructions: INJECT 12 to 15 units sub cut nightly for tx of DM. levothyroxine 137 mcg tablet See Rx Instructions .ROUTE .COMPLEX Qty: 90 3RF Dose Instruction: TAKE 1 TABLET DAILY Rx Instructions: TAKE 1 TABLET DAILY Discharge Orders: Discharge ED (Routine); Ordered 01/12/23 Ordered By: Nubia Cantrell Referrals: Gilbert Dempsey DO [Primary Care Provider] - Coding Level of Care Code ED Magnetic Grinder Operator for Chg Fwd
== END 2023-01-12 15:56 | disposition home or self-care (01) ==
PROVIDERS: Emergency Provider Physician Assistant; PCP Family Medicine
DX: M23.91 Unspecified internal derangement of right knee (principal); Z79.01 Long term (current) use of anticoagulants; Z79.4 Long term (current) use of insulin; I11.0 Hypertensive heart disease with heart failure; I50.9 Heart failure, unspecified; E11.9 Type 2 diabetes mellitus without complications; E78.5 Hyperlipidemia, unspecified; Z95.0 Presence of cardiac pacemaker; Z95.1 Presence of aortocoronary bypass graft
CPT/HCPCS: 99281

== ENCOUNTER 2023-01-22 14:51 | Outpatient (CLI) | payer MEDICARE, BC, SELFPAY ==
--- NOTE | 2023-01-22 14:59 | CT_ITS ---
WS: [id number] NONCONTRAST CT RIGHT KNEE TECHNIQUE: Noncontrast CT RIGHT knee with coronal and sagittal reformatted images. CLINICAL INFORMATION: R KNEE INTERNAL DERANGEMENT COMPARISON: None. DLP: 529.[address] scans at [facility] use at least one of these dose optimization techniques: automated e xposure control; mA and/or kV adjustment per patient size (includes targeted exams where dose is matc hed to clinical indication); or iterative reconstruction. FINDINGS: Advanced tricompartmental arthritis RIGHT knee with hypertrophic changes along the joint line. Joint space narrowing worse in the medial joint compartment with sclerosis. Hypertrophic patella. Vascular calcification. Moderate suprapatellar effusion with hemarthrosis. Distal quadriceps and patella tendons appear intac t. Medial and lateral patellar retinaculum appear grossly intact. Diffuse soft tissue edema about the knee. Normal PCL. ACL is not visualized and may be ruptured. Recommend clinical correlation. Chondrocalcinosis. Chronic thinning of the medial and lateral meniscus. No acute fractures. IMPRESSION: 1. Advanced tricompartmental arthritis with hypertrophic changes along the joint line. 2. No acute fractures. 3. Moderate suprapatellar effusion with hemarthrosis. 4. ACL is not visualized and may be ruptured. Recommend clinical correlation. 5. Normal PCL. 6. Chondrocalcinosis with chronic thinning of the medial and lateral meniscus.
== END 2023-01-22 14:52 | disposition home or self-care (01) ==
LOC: RAD 14:52
PROVIDERS: PCP Family Medicine; Visit Provider Orthopaedic Surgery
DX: M23.91 Unspecified internal derangement of right knee (principal); M17.11 Unilateral primary osteoarthritis, right knee; M25.061 Hemarthrosis, right knee; M11.261 Other chondrocalcinosis, right knee
CPT/HCPCS: 73700

== ENCOUNTER 2023-03-18 06:00 | Outpatient (RCR) | payer MEDICARE, BC, SELFPAY | END 2023-03-25 23:59 | disposition home or self-care (01) | LOC: APT 06:00 | PROVIDERS: Visit Provider Orthopaedic Surgery | DX: Z47.89 Encounter for other orthopedic aftercare (principal) | CPT/HCPCS: 97110; 97161; 97530 ==

== ENCOUNTER 2023-03-26 06:00 | Outpatient (RCR) | payer MEDICARE, BC, SELFPAY | END 2023-04-23 23:59 | disposition home or self-care (01) | LOC: APT 06:00 | PROVIDERS: Visit Provider Orthopaedic Surgery | DX: Z47.89 Encounter for other orthopedic aftercare (principal) | CPT/HCPCS: 97110; 97530 ==

== ENCOUNTER → 2023-06-08 16:29 | Outpatient (BNVA) | payer MEDICARE, BC, SELFPAY | PROVIDERS: PCP Family Medicine; Visit Provider Internal Medicine Cardiovascular Disease | DX: R07.9 Chest pain, unspecified (principal); I25.118 Atherosclerotic heart disease of native coronary artery with other forms of angina pectoris; I11.0 Hypertensive heart disease with heart failure; I50.22 Chronic systolic (congestive) heart failure; E78.5 Hyperlipidemia, unspecified; I48.91 Unspecified atrial fibrillation; I25.5 Ischemic cardiomyopathy; Z95.0 Presence of cardiac pacemaker; R94.31 Abnormal electrocardiogram [ECG] [EKG] | CPT/HCPCS: 93005; 99214 ==

== ENCOUNTER 2023-06-11 09:29 | Outpatient (CLI) | payer MEDICARE, BC, SELFPAY ==
--- NOTE | 2023-06-11 10:00 | FL_ITS ---
WS: [id number] Exam: FL barium swallow modifd [id number] Date/Time of Exam: 06/11/2023 9:46 AM Reason For Exam: R13.10 - Dysphagia, unspecified Fluoroscopy time: 2min [id number] minutes # of spot films: 0 Modified barium swallow was performed in conjunction with the speech therapy service. The patient experienced mild penetration into the laryngeal inlet when swallowing thin liquid barium solutions. The patient tolerated the remaining consistencies of barium foodstuffs without aspiration or penetration. The patient swallowed a barium tablet without difficulty or complication. IMPRESSION: 1. Mild penetration into the laryngeal inlet when the patient ingested thin liquid barium solution. N o aspiration was noted. A separate report and recommendations will follow from the speech therapy service.
== END 2023-06-11 09:30 | disposition home or self-care (01) ==
LOC: RAD 09:30
PROVIDERS: PCP Family Medicine; Visit Provider Family Medicine
DX: R13.10 Dysphagia, unspecified (principal)
CPT/HCPCS: 74230; 92611

== ENCOUNTER 2023-06-17 09:45 | Outpatient (CLI) | payer MEDICARE, BC, SELFPAY ==
[2023-06-17 10:00] VITALS: BMI 23.4
--- NOTE | 2023-06-17 10:03 | NMCV_ITS ---
NM carole perf SPECT r/s* [id number] Artis Boston Age: 83 Gender: M : 1940 Exam Date: 06/17/2023 10:03 Ordering Phys: Elvira Malave MD ([email or web address]) Technologist: RADHA Chavez Exam Location: [facility] Indications: CORONARY ANGIOPLASTY STATUS STRESS TEST Please [facility] IMAGE PROTOCOL Rest/Stress 1 Lexiscan Day Radiopharmaceutical Dose (mCi) Administration Site Administered by Rest: Tc-99m 10.4 IV RADHA Crocker Sestamibi Stress:Tc-99m 32.5 IV Sestamibi Rest: 17-Jun-2023 60 Discovery 630 Stress: 17-Jun-2023 30 Discovery 630 0.4mg Lexiscan. Supine position only as patient was unable to lay prone. SPECT RESULTS Technical Quality: Excellent Raw Data Analysis: Normal Image Corrections: No attenuation or motion correction applied Summed Stress Score: 16 Summed Rest Score: 16 Summed Difference Score: 1 PERFUSION FINDINGS Moderate area of moderate to severely decreased tracer uptake involving the basal, mid and apical inferior, mid inferolateral, mid inferoseptal, apical lateral, apical septal and LV apex. A subtle area reversibility was noted in the apical lateral region, FUNCTIONAL RESULTS (calculated via Gated SPECT) Stress Image LV EF (%): 37 Stress EDV (mL):201 TID: 1.01 Stress ESV (mL):126 FUNCTIONAL FINDINGS: Segmental wall motion analysis revealed diffuse hypokinesia of the left ventricle. IMPRESSIONS 1. Myocardial perfusion imaging revealing moderate area of moderate to severely decreased persistent tracer uptake involving the inferior, inferoseptal, inferolateral and apical regions with a subtle area of reversibility suggesting extensive myocardial scarring, predominantly involving the right coronary artery with some involvement of the left anterior and left circumflex, artery territory. A subtle area of possible alessandra-infarction ischemia. 2. Diminished LV ejection fraction of 37%. 3. LV wall motion analysis revealing diffuse hypokinesia of the left ventricle 4. Moderately dilated LV cavity The above features may suggest a nonischemic form of cardiomyopathy. No significant coronary ischemia, based on the above findings Dr Elvira Malave MD FAC (Electronically Signed) Final Date: 18 June 2023 15:53 S
--- NOTE | 2023-06-17 10:03 | ECG_ITS ---
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 Interpretive Statements NAME OF STUDY: LEXISCAN SESTAMIBI STRESS TEST INDICATION: Chest Pain PROCEDURE: At the baseline, the EKG revealed 100% V paced rhythm. The baseline heart was 61 bpm with a blood pressue of 145/93 mm of Hg Lexiscan was infused over a period of 20 seconds. A total of 0.4 milligrams of Lexiscan was infused. The stress phase was continued for a total of 5 minutes. Heart rate at the end of the stress phase was 60 bpm with a blood pressure 138/75 mm of Hg. The EKG at the peak infusion revealed no significant changes. Sestamibi was injected 20 seconds after the Lexiscan infusion. Heart rate at the end of the recovery phase was 60 bpm with a blood pressure of 119/70 mm of Hg. CONCLUSION: 1. No significant EKG changes with the LexiScan infusion 2. No LexiScan induced chest pain or cardiac arrhythmia 3. Normal blood pressure and heart rate response 4. Sestamibi/sestamibi perfusion scan pending; see separate report. Electronically Signed On 06-22-2023 23:43:27 CDT by Elvira Malave M.D. [email or web address]
[2023-06-17] MEDS: regadenoson 0.4 Mg/5 ml Syringe 0.400000000000000022 MG IVP (11:55)
[2023-06-17 12:01] VITALS: BP 135/74; PULSE 62
== END 2023-06-17 09:46 | disposition home or self-care (01) ==
PROVIDERS: PCP Family Medicine; Visit Provider Internal Medicine Cardiovascular Disease
DX: R07.9 Chest pain, unspecified (principal)
CPT/HCPCS: 36415; 78452; 93017; 96374; A9500; J2785

== ENCOUNTER → 2023-12-08 15:08 | Outpatient (BNVA) | payer MEDICARE, BC, SELFPAY | PROVIDERS: PCP Family Medicine; Visit Provider Internal Medicine Cardiovascular Disease | DX: I11.0 Hypertensive heart disease with heart failure (principal); I50.22 Chronic systolic (congestive) heart failure; E78.5 Hyperlipidemia, unspecified; I48.91 Unspecified atrial fibrillation; I25.10 Atherosclerotic heart disease of native coronary artery without angina pectoris; I25.5 Ischemic cardiomyopathy; M79.604 Pain in right leg; M79.605 Pain in left leg; Z79.01 Long term (current) use of anticoagulants; Z79.84 Long term (current) use of oral hypoglycemic drugs | CPT/HCPCS: 99214 ==

== ENCOUNTER → 2023-12-09 11:00 | Outpatient (BNVA) | payer MEDICARE, BC, SELFPAY | PROVIDERS: PCP Family Medicine; Referring Provider Family Medicine; Visit Provider Psychiatry & Neurology Neurology | DX: G62.9 Polyneuropathy, unspecified (principal); M79.604 Pain in right leg; M79.605 Pain in left leg; E55.9 Vitamin D deficiency, unspecified; I11.0 Hypertensive heart disease with heart failure; I50.22 Chronic systolic (congestive) heart failure; R29.818 Other symptoms and signs involving the nervous system; R20.2 Paresthesia of skin; G56.03 Carpal tunnel syndrome, bilateral upper limbs; E11.9 Type 2 diabetes mellitus without complications | CPT/HCPCS: 36415; 82306; 82607; 82746; 83090; 83520; 83735; 83921; 84439; 84443; 84481; 86592; 99203 ==

== ENCOUNTER → 2023-12-15 14:34 | Outpatient (BNVA) | payer MEDICARE, BC, SELFPAY | PROVIDERS: PCP Family Medicine; Visit Provider Orthopaedic Surgery | DX: M54.50 Low back pain, unspecified (principal) | CPT/HCPCS: 72110; 99204 ==

== ENCOUNTER 2023-12-31 09:00 | Outpatient (CLI) | payer MEDICARE, BC, SELFPAY ==
--- NOTE | 2023-12-31 09:02 | CT_ITS ---
WS: [id number] CT CERVICAL MYELOGRAM HISTORY: neck pain Technique: All CT scans at [facility] use at least one of these dose optimization techniques: automated exposure control; mA and/or kV adjustment per patient size (includes targeted exams where dose is matched to clinical indication); or iterative reconstruction. DLP: 151.17 mGy.cm COMPARISON: 07/23/2021 Adequate opacification of the thecal sac. The contrast injected into the subarachnoid space is diffic ult to place and is certain region due to the patient's marked kyphosis and lordosis. Mild straightening and curvature of the cervical spine. Disc spaces are narrowed. No fractures. C1 an d C2 are aligned and the odontoid is intact. C1-C2: Mild narrowing of the predental space. C2-C3: Mild facet arthritis. No stenosis or protrusions. C3-C4: Mild osteophytic ridging encroaching upon the ventral thecal sac. Bilateral facet arthritis. M ild central and LEFT foraminal stenosis. Moderate RIGHT foraminal stenosis predominantly due to facet disease and osteophytes. C4-C5: Osteophytic ridging and bilateral facet joint arthropathy. Mild encroachment upon the ventral thecal sac. Moderate RIGHT and mild LEFT foraminal stenosis. C5-C6: Osteophytic ridging with annular disc bulging. Osteophyte encroachment upon the ventral thecal sac. Mild central with severe bilateral foraminal stenosis and facet arthritis. C6-C7: Osteophytic ridging. Bilateral facet joint arthritis. Mild central with severe bilateral carlos inal stenosis and facet arthritis. Beam-hardening artifact through the upper thoracic region secondary to the humeral head prostheses. CT/CT cervical spine w con [id number] IMPRESSION: 1. No acute cervical spine fracture. 2. Advanced facet joint arthritis and disc base narrowing. 3. C4-5: Moderate RIGHT and mild LEFT foraminal stenosis. 4. C5-6 and C6-7: Mild central with severe bilateral foraminal stenosis and fa cet arthropathy. 5. C3-4: Moderate RIGHT foraminal stenosis due to facet disease and osteophyte s. Mild central and LEFT foraminal stenosis at C3-4.
--- NOTE | 2023-12-31 09:02 | CT_ITS ---
WS: [id number] CT MYELOGRAM LUMBAR SPINE HISTORY: back pain TECHNIQUE: Contiguous 2.0 mm axial imaging performed from T12 through the mid sacral level. Bone and soft tissue windows reviewed. Sagittal and coronal reformats are submitted and reviewed. DLP: 335.[address] scans at [facility] use at least one of these dose optimization techniques: automated e xposure control; mA and/or kV adjustment per patient size (includes targeted exams where dose is matc hed to clinical indication); or iterative reconstruction. COMPARISON: None available. Intrathecal contrast pooled in the dependent portions of the spine during this CT. The dependent port ions are the thoracic and sacral subarachnoid spaces due to the marked increase in the lumbar lordosi s. Moderate LEFT rotary scoliosis of the lumbar spine. Marked increase in the lumbar lordosis. T12, L1, and L2 retrolisthesis by 3 mm. L5 anterolisthesis by 9 mm. Disc spaces are narrowed. Facet j oints are partially fused. RIGHT lateral bony fusion between L3 and L4 vertebral bodies. L1-L2: Diffuse osteophytic ridging with facet joint arthritis. No central stenosis. Severe RIGHT and moderate LEFT foraminal stenosis. L2-L3: Annular disc bulging with ligamentum flavum hypertrophy. Osteophyte encroachment upon the vent ral thecal sac. Facet joint arthritis. Moderate to severe central and RIGHT foraminal stenosis. Mild LEFT foraminal stenosis. L3-L4: Mild annular disc bulging with severe facet joint arthritis. Large posterior laminectomy defec t. Shallow RIGHT foraminal disc protrusion. Very slight contact on the traversing RIGHT L4 nerve root . L4-L5: Diffuse annular disc bulging with facet joint arthritis. Posterior laminectomy defect. Fusion of bone grafting posteriorly. No central stenosis. Mild bilateral foraminal stenosis. L5-S1: Osteophytic ridging. Severe facet joint arthritis. No central stenosis. Moderate bilateral for aminal stenosis, LEFT greater than RIGHT. Most significant encroachment deformity upon the LEFT L5 ex iting nerve root. Fusion of bone graft material posteriorly. CT/CT lumbar spine w con [id number] IMPRESSION: 1. Marked increase in the lumbar lordosis and LEFT rotary scoliosis of the lum bar spine. 2. Multilevel areas of central and foraminal stenosis. 3. L5 anterolisthesis by 9 mm. Slight retrolisthesis of T12, L1 and L2. 4. L1-2: Severe RIGHT and moderate LEFT foraminal stenosis. 5. L2-3: Moderate to severe central with RIGHT foraminal stenosis and mild LEF T foraminal stenosis. 6. L3-4: Very slight disc contact on the traversing RIGHT L4 nerve root. 7. L4-5: Mild bilateral foraminal stenosis. 8. L5-S1: Severe facet joint arthritis. Moderate bilateral foraminal stenosis, LEFT greater than RIGHT.
--- NOTE | 2023-12-31 09:30 | IR_ITS ---
WS: [id number] CERVICAL AND LUMBAR MYELOGRAMs HISTORY: neck pain COMPARISON: None available. FLUOROSCOPY TIME: 3min [id number] # of spot films: 1 Procedure, risks and complications were explained to the patient. Risks including bleeding, infection , headaches, allergic reaction and seizures. Consent has been obtained. With the patient in prone position the skin over the lumbar region is cleansed with ChloraPrep and an esthetized with lidocaine. 22-gauge spinal needle is inserted into the thecal sac at the appropriate level determined by fluoroscopy. Omnipaque 240; 12 ml is injected slowly under fluoroscopy with no co mplications. Needle bevel is perpendicular to the longitudinal fibers of the dura. Stylet is reinsert ed prior to removal of the needle. Patient tolerated the procedure well. Patient will proceed to CT f or further evaluation. Patient has marked LEFT rotary scoliosis. Prior laminectomy defects noted at L4 and L5 with bone yesy t material. IR/IR myelogram sp cervical [id number] IMPRESSION: Uncomplicated lumbar and cervical myelograms. CT reports to follow.
[2023-12-31] MEDS: iohexol 240 mg/mL 50 mL Btl 20 ML INTRATHECA (10:41)
== END 2023-12-31 09:01 | disposition home or self-care (01) ==
LOC: RAD 09:01
PROVIDERS: PCP Family Medicine; Visit Provider Orthopaedic Surgery
DX: M40.56 Lordosis, unspecified, lumbar region (principal); M43.16 Spondylolisthesis, lumbar region; M51.360 Other intervertebral disc degeneration, lumbar region with discogenic back pain only; M99.61 Osseous and subluxation stenosis of intervertebral foramina of cervical region; M47.896 Other spondylosis, lumbar region; M47.898 Other spondylosis, sacral and sacrococcygeal region
CPT/HCPCS: 62302; 72126; 72132; Q9966

== ENCOUNTER → 2024-02-02 14:45 | Outpatient (BNVA) | payer MEDICARE, BC, SELFPAY | PROVIDERS: PCP Family Medicine; Visit Provider Orthopaedic Surgery | DX: Z09 Encounter for follow-up examination after completed treatment for conditions other than malignant neoplasm | CPT/HCPCS: 99214 ==

== ENCOUNTER 2024-02-05 12:27 | Emergency (ER) | payer MEDICARE, BC, SELFPAY ==
--- NOTE | 2024-02-05 12:36 | CT_ITS ---
WS: [id number] CT HEAD NONCONTRAST HISTORY: fall/trauma TECHNIQUE: Contiguous axial imaging performed through the brain. Bone and soft tissue windows. Sagitt al and coronal reformats reviewed. All CT scans at [facility] use at least one of these dose optimization techniques: automated exposure control; mA and/or kV adjustment per patient size (includ es targeted exams where dose is matched to clinical indication); or iterative reconstruction. DLP: 3072.94 mGy.cm COMPARISON: None available. No acute intracranial hemorrhage, midline shift or mass effect. Mild symmetric atrophy and mild small vessel disease. No acute infarct. No prior large territory infa rct. Small lacunar infarct along the anterior LEFT external capsule. Ventricles: Normal size with no hydrocephalus. Mild cerebellar atrophy. No inferior displacement of the cerebellar tonsils. Paranasal sinuses: Air-fluid levels are noted in the sphenoid sinus. There is a small amount of fluid in the posterior LEFT ethmoid air cells. Mastoid air cells: Well pneumatized. Calvarium and scalp: No skull fracture. There is a large acute scalp hematoma centered over the RIGHT frontal bone and extending inferior over the nasal bones. Markedly comminuted fractures involving both nasal bones. Leftward deviation and displacement of the nasal bones. Nasal septum is probably intact. This will be better evaluated on the facial bone CT to follow. CT/CT head wo con* [id number] IMPRESSION: 1. No acute intracranial hemorrhage or edema. 2. Mild cerebral atrophy and small vessel disease. 3. Acute RIGHT frontal scalp hematoma. 4. Comminuted displaced nasal bone fractures. Dedicated facial bone CT to foll .
--- NOTE | 2024-02-05 12:36 | ED_ITS ---
HPI - Fall General: Chief Complaint: Wound/Laceration Stated Complaint: fall, face lac - blood thinners Time Seen by Provider: 02/05/24 12:32 Source: patient and EMS Mode of arrival: EMS Limitations: no limitations History of Present Illness: Patient is a very nice 83-year-old male who presents to the ED today with EMS for evaluation following a fall. Patient states he was at the [facility] when he tripped over an uneven surface on the tile and landed directly on his face. No LOC. He sustained lacerations to his forehead and nose. No epistaxis. He is on anticoagulation. He has not complained of a headache. No other injuries sustained during the fall MD complaint: fall Onset (ago): hour(s) Fall from: standing Fall witnessed: yes, by bystander Place fall occurred: other ([facility]) Loss of consciousness: None Prolonged down time: no Symptoms prior to fall: none Context: tripped/slipped Associated symptoms-after fall: Reports no associated symptoms; Denies abdominal pain, chest pain, headache(s), hematuria, lightheadedness or neck pain Related Data Home Medications Medication Instructions Recorded Confirmed cholecalciferol (vitamin D3) 50 50 mcg PO DAILY 03/01/20 02/05/24 mcg (2,000 unit) capsule folic acid 400 mcg tablet 0.4 mg PO DAILY 03/06/21 02/05/24 magnesium 200 mg tablet 200 mg PO DAILY 04/08/22 02/05/24 apixaban 5 mg tablet (Eliquis) 5 mg PO BID 02/05/24 02/05/24 coenzyme Q10 100 mg capsule 100 mg PO DAILY 02/05/24 02/05/24 (CoQ-10) levothyroxine 137 mcg tablet 137 mcg PO DAILY 02/05/24 02/05/24 multivitamin 1 tab PO QAM 02/05/24 02/05/24 sacubitril 97 mg-valsartan 103 mg 1 tab PO DAILY 02/05/24 02/05/24 tablet (Entresto) zinc acetate 50 mg (zinc) capsule 100 mg PO DAILY 02/05/24 02/05/24 Previous Rx's Medication Instructions Recorded empagliflozin 10 mg tablet 10 mg PO DAILY DM #90 tabs 06/23/23 (Jardiance) amoxicillin 875 mg-potassium 1 tab PO BID #14 tabs 02/05/24 clavulanate 125 mg tablet hydrocodone 5 mg-acetaminophen 325 1 tab PO Q6H PRN pain #14 tabs 02/05/24 mg tablet Allergies Allergy/AdvReac Type Severity Reaction Status Date / Time atorvastatin [From Lipitor] Allergy Unknown Unknown Verified 01/26/24 08:05 metformin [From Glucophage] AdvReac Severe ADR-Diarrhe Verified 01/26/24 08:05 a Review of Systems Eyes: Denies: change in vision, blurry vision, photophobia, eye discharge, floaters or seeing flashes ENMT: Reports: other (nasal/forehead contusion); Denies: throat pain, odynophagia, ear or mastoid pain, ear discharge, nasal discharge, epistaxis or sinus pain Card: Denies: chest pain, palpitations, lightheadedness, syncope or pre- syncope Resp: Denies: dyspnea or pain on inspiration GI: Denies: abdominal pain : Denies: flank pain or hematuria Musc: Denies: neck pain, back pain, extremity pain or joint pain Skin/Breast: Reports: other (contusion/laceration) Neuro: Denies: headache(s), numbness in extremities, weakness in extremities, sensory changes or dizziness PFSH ED PFSH: Medical History Enrolled in chronic care management please do not remove from active HZV (herpes zoster virus) post herpetic neuralgia Pacemaker Anticoagulant long-term use ASHD (arteriosclerotic heart disease) Diabetes Atrial fibrillation A. fib with slow ventricular rate Dyslipidemia HTN (hypertension) CHF (congestive heart failure) Surgical History S/P carpal tunnel release S/P knee surgery S/P shoulder replacement Previous back surgery S/P cholecystectomy S/P appendectomy S/P CABG (coronary artery bypass graft) Family History Sister Cancer Mother Diabetes Denies family history of CAD (coronary artery disease) Clotting disorder Dementia Chronic kidney disease (CKD) Suicide Anesthesia complication Bleeding disorder Lung disease Stroke Social History Smoking and tobacco/nicotine status: unknown if used tobacco/nicotine Second hand smoke exposure: No Alcohol intake: never Substance/Drug Use: never Adopted: No Caregiver/support person: No Lives independently: Yes Household members: spouse Housing: House Marital status: Current occupational status: retired Do you think of yourself as: Straight/Heterosexual Current gender identity: Female Physical Exam Const: COMMON NORMALS: no acute distress, average body habitus, patient oriented x3, no limitations, healthy appearing, alert and well nourished GENERAL APPEARANCE: cooperative ORIENTATION/CONSCIOUSNESS: Yes awake, Yes oriented to person, Yes oriented to place and Yes oriented to time HENMT: COMMON NORMALS: normocephalic, atraumatic and TM's normal bilaterally HEAD & SCALP: normal to inspection, normocephalic and atraumatic; no Farrar's sign, no hematoma and no raccoon eyes FACE & SINUS: sinuses nontender, abrasion (forehead abrasion/laceration) and edema (nose/forehead); no crepitus and no ecchymosis NOSE: Normal septum present and Other nasal findings present (small laceration/contusion) TYMPANIC MEMBRANE: TM's normal bilaterally MOUTH: other (no intraoral injuries noted) Eye: COMMON NORMALS: Equal, round and reactive pupils present and EOMs intact bilaterally GENERAL EYE: appearance normal, both eyes and all related structures and normal light reflex PUPIL: Yes Equal, round and reactive pupils present DIRECT OPHTHALMOSCOPY: Yes normal light reflex Neck/C-Spine: COMMON NORMALS: full ROM GENERAL: Yes normal visual inspection CERVICAL SPINE: Yes cervical ROM normal, No pain with cervical ROM, No Cervical spine tenderness, No step off deformity and No Paracervical muscle tenderness Chest: COMMONS NORMALS: normal inspection of the chest and normal palpation of entire chest wall Resp: COMMON NORMALS: normal respiratory effort and clear to auscultation bilaterally AUSCULTATION: clear to auscultation bilaterally Cardio: COMMON NORMALS: regular rate and regular rhythm RATE: regular rate RHYTHM: regular rhythm GI: COMMON NORMALS: Normal to inspection, nondistended, normoactive bowel sounds present, Soft to palpation, non-tender, No hepatosplenomegaly present and no masses INSPECTION: Yes normal to inspection and No abdominal wall ecchymosis AUSCULTATION: Yes normoactive bowel sounds PALPATION: Yes Soft to palpation and Yes No hepatosplenomegaly present Back/Pelvis: COMMON NORMALS: thoracic and lumbar spine normal to inspection, no thoracic nor lumbar tenderness and thoraco-lumbar ROM normal Extremity: COMMON NORMALS: normal to inspection and full ROM GENERAL: Yes normal exam except as noted Neuro: KELLEE COMA SCALE: document GCS findings Kellee coma scale eye opening: Spontaneous Kellee coma scale verbal response: Orientated Kellee coma scale motor response: Obey commands Kellee coma scale total score: 15 COMMON NORMALS: patient oriented x3, CN's II-XII intact bilaterally, moves all extremities, no focal motor deficits, no sensory deficits noted and gait normal SENSORIUM/ORIENTATION: Yes alert, Yes oriented to person, Yes oriented to place and Yes oriented to time SPEECH: speech normal GAIT: Yes Normal gait present Skin: COMMON NORMALS: no rashes or lesions noted GENERAL SKIN EXAM: no rashes or lesions noted TRAUMA: no lacerations or abrasions Procedures Laceration Laceration 1: Site: face (nose) Size (cm): 1.0 Description: irregular Depth: simple, single layer Local Anesthetic: lidocaine 1% Amount of anesthesia used (mL): 1.0 Pre-repair: wound explored and irrigated extensively Skin layer closed with: nylon Size (cm): 5-0 Number of sutures: 2 Technique: simple, interrupted Course Consultations: Consultation #1: Dr. Hagen-recommend rigid cervical collar and he will follow up in office Vital Signs: Vital signs: Vital Signs Temperature 97.8 F 02/05/24 12:37 Pulse Rate 61 02/05/24 12:57 Respiratory Rate 16 02/05/24 12:57 Blood Pressure 158/85 02/05/24 12:57 Pulse Oximetry 98 02/05/24 12:57 Oxygen Delivery Me thod Room Air 02/05/24 12:57 MDM - Fall Medical Decision Making Patient here following a trip and fall just prior to arrival. He has a comminuted displaced nasal bone fracture. Small laceration that was copiously irrigated and repaired as documented. He will follow-up with ENT and I will place on antibiotics. Head CT is unremarkable. Cervical spine CT showing an acute nondisplaced chronic fracture involving his C3 vertebral body. He has no acute neurologic deficits. Spoke to Dr. Hagen who recommends rigid collar and he will follow-up in office. Patient not a candidate for MRI due to him having a pacemaker. Strict return to ED precautions given. Tetanus was updated. Medical Records I reviewed the patient's medical records. Lab Data Radiology Impressions Cervical Spine CT 02/05/24 12:36 IMPRESSION: 1. Acute, nondisplaced corner fracture involving the anterior inferior C3 vertebral body. This can be seen with a hyperextension injury. On this CT examination there is no asymmetry or widening of the C3-4 disc or facet joints. Correlate for cervical cord injury. MRI may be of benefit to evaluate for cord edema and hematoma. MRI may not be possible as the patient does appear to have a cardiac pacemaker. Face CT 02/05/24 12:36 IMPRESSION: 1. Comminuted, displaced bilateral nasal bone fractures. Displacement to the fractures to the LEFT of midline. 2. Foreign body material in the soft tissues anterior to the nasal bone fractures. 3. Corner fracture involving the anterior inferior C3 vertebral body. Dedicated cervical spine CT to follow. 4. Blood fluid levels in the LEFT posterior ethmoid air cells and sphenoid sinus. Probably related to the trauma. Head CT 02/05/24 12:36 IMPRESSION: 1. No acute intracranial hemorrhage or edema. 2. Mild cerebral atrophy and small vessel disease. 3. Acute RIGHT frontal scalp hematoma. 4. Comminuted displaced nasal bone fractures. Dedicated facial bone CT to follow. All radiology interpretation(s) finalized by discharge Discharge Plan Discharge Patient Disposition: Home Clinical Impression: Fall on same level from tripping Fracture of nasal bone Qualifiers: Encounter type: initial encounter Fracture type: closed Qualified Code(s): S02.2XXA - Fracture of nasal bones, initial encounter for closed fracture Fracture of C3 vertebra, closed Qualifiers: Encounter type: initial encounter Fracture morphology: unspecified fracture morphology Fracture alignment: nondisplaced Qualified Code(s): S12.201A - Unspecified nondisplaced fracture of third cervical vertebra, initial encounter for closed fracture Condition: Stable Prescriptions: New hydrocodone-acetaminophen 5-325 mg tablet 1 tab PO Q6H PRN (Reason: pain) Qty: 14 0RF amoxicillin-pot clavulanate 875-125 mg tablet 1 tab PO BID Qty: 14 0RF No Action cholecalciferol (vitamin D3) 50 mcg (2,000 unit) capsule 50 mcg PO DAILY folic acid 400 mcg tablet 0.4 mg PO DAILY Jardiance 10 mg tablet 10 mg PO DAILY Qty: 90 3RF magnesium 200 mg tablet 200 mg PO DAILY multivitamin [Multi-Day] Tablet 1 tab PO QAM zinc acetate 50 mg (zinc) Capsule 100 mg PO DAILY coenzyme Q10 [CoQ-10] 100 mg Capsule 100 mg PO DAILY levothyroxine 137 mcg tablet 137 mcg PO DAILY Rx Instructions: TAKE 1 TABLET DAILY Eliquis 5 mg tablet 5 mg PO BID Rx Instructions: TAKE 1 TABLET BY MOUTH TWICE DAILY sacubitril-valsartan [Entresto] 97-103 mg tablet 1 tab PO DAILY Rx Instructions: TAKE 1 TABLET ONCE A DAY Discharge Orders: Discharge ED (Routine); Ordered 02/05/24 Ordered By: Nubia Cantrell Referrals: Gilbert Dempsey, [Primary Care Provider] - Patient Instructions: Nasal Fracture (ED), Cervical Fracture (DC), Opioid Safety, Pain Management Activity Restrictions/Additional Instructions: As we discussed, case management will contact you early next week to help set you up with your follow-up appointment to see Dr. Hagen in regards to your C3 fracture in your neck as well as ENT for further evaluation of the nasal bone fractures. He will be placed on antibiotics and given something for pain to take sparingly for severe pain. He needs to stay in his cervical collar at all times until told otherwise by Dr. Hagen. He needs to return to the emergency department for any weakness to his upper extremities, numbness, tingling, loss of sensation, or any other concerns you may have. Coding Level of Care Code ED Hand Stamper for Jenn Cabrera
--- NOTE | 2024-02-05 12:36 | CT_ITS ---
WS: [id number] CT CERVICAL SPINE HISTORY: fall/trauma TECHNIQUE: Contiguous 2.0 mm axial imaging performed through the entire cervical spine. Sagittal and coronal reformats also performed. All CT scans at [facility] use at least one of these dose o ptimization techniques: automated exposure control; mA and/or kV adjustment per patient size (include s targeted exams where dose is matched to clinical indication); or iterative reconstruction. DLP: 3072.94 mGy.cm COMPARISON: 12/31/2023 Posterior cervical alignment is near normal. Slight retrolisthesis of C3. New acute nondisplaced corn er fracture involving the anterior-inferior endplate of C3. No interval asymmetry or widening of the C3-4 disc. Facet joints are not widened. No subluxation. No increased density or hematoma is noted in the epidural space or along the cervical cord. Noncontra st CT is an insensitive evaluation for subtle cord lesions or blood. No prevertebral hematoma. C2-C3: Mild facet arthritis. C3-C4: Facet joint space is very similar to the prior study from 12/31/2023. No obvious widening of th e facet joints. C4-C5: Facet joint arthropathy and mild foraminal stenosis. Small central disc protrusion. C5-C6: Facet joint arthropathy and mild foraminal stenosis. C6-C7: Osteophytic ridging and facet arthritis. Mild foraminal stenosis. C7-T1: Normal. Benign calcified granuloma LEFT lung apex. CT/CT cervical spin wo con* [id number] IMPRESSION: 1. Acute, nondisplaced corner fracture involving the anterior inferior C3 geri tebral body. This can be seen with a hyperextension injury. On this CT examinat ion there is no asymmetry or widening of the C3-4 disc or facet joints. Correla te for cervical cord injury. MRI may be of benefit to evaluate for cord edema and hematoma. MRI may not be p ossible as the patient does appear to have a cardiac pacemaker.
--- NOTE | 2024-02-05 12:36 | CT_ITS ---
WS: [id number] CT FACIAL BONES HISTORY: trauma TECHNIQUE: Images obtained from the supraorbital location through the mandible. Soft tissue and bone windows are reviewed. Coronal and sagittal reformats have also been submitted. DLP: 3072.[address] scans at [facility] use at least one of these dose optimization techniques: automated e xposure control; mA and/or kV adjustment per patient size (includes targeted exams where dose is matc hed to clinical indication); or iterative reconstruction. COMPARISON: None available. Comminuted acute fractures involving both nasal bones. Nasal bones are displaced to the LEFT of midli ne. Foci of air in the soft tissues and edema. There is a additional foreign material in the superfic ial soft tissues anterior to the nasal bones. Nasal septum is aligned. No zygomatic arch fracture. Or bits and globes are intact. There is a small amount of fluid in the sphenoid and posterior LEFT ethmo id air cells. This is probably related to bleeding and injury of the nasal bones. Lamina papyracea ar e intact. Mandibular condyles are intact. RIGHT frontal scalp hematoma with laceration. The underlying frontal bone is intact. On the sagittal reformats there is a teardrop fracture involving the anterior inferior C3 vertebral b berry. This will be better evaluated on the following cervical spine CT. CT/CT facial bones wo con* [id number] IMPRESSION: 1. Comminuted, displaced bilateral nasal bone fractures. Displacement to the f ractures to the LEFT of midline. 2. Foreign body material in the soft tissues anterior to the nasal bone fractu res. 3. Corner fracture involving the anterior inferior C3 vertebral body. Dedicate d cervical spine CT to follow. 4. Blood fluid levels in the LEFT posterior ethmoid air cells and sphenoid sin us. Probably related to the trauma.
[2024-02-05 12:37] VITALS: BP 158/85; PULSE 74; RESP 17; TEMP 36.6; O2SAT 97
[2024-02-05 12:57] VITALS: BP 158/85; PULSE 61; RESP 16; O2SAT 98
[2024-02-05] MEDS: tetanus-dipt-pertussis 0.5 mL SDV IM (13:32)
[2024-02-05 14:31] VITALS: BP 151/79; PULSE 61; RESP 16; O2SAT 96
[2024-02-05 14:36] VITALS: RESP 16; O2SAT 96
[2024-02-05] MEDS: morphine 4 mg/mL SDV 1 mL IM (14:36)
[2024-02-05 15:07] VITALS: BP 151/79; PULSE 60; RESP 16; O2SAT 96
--- NOTE | 2024-02-09 08:24 | DCPLANNER ---
Referral sent to [facility]
== END 2024-02-05 15:10 | disposition home or self-care (01) ==
PROVIDERS: Emergency Provider Physician Assistant; PCP Family Medicine
DX: S02.2XXA Fracture of nasal bones, initial encounter for closed fracture (principal); S12.201A Unspecified nondisplaced fracture of third cervical vertebra, initial encounter for closed fracture; Z79.01 Long term (current) use of anticoagulants; Z95.1 Presence of aortocoronary bypass graft; Z95.0 Presence of cardiac pacemaker; E11.9 Type 2 diabetes mellitus without complications; I10 Essential (primary) hypertension; I11.0 Hypertensive heart disease with heart failure; I50.9 Heart failure, unspecified; E78.5 Hyperlipidemia, unspecified; S01.81XA Laceration without foreign body of other part of head, initial encounter; W19.XXXA Unspecified fall, initial encounter
CPT/HCPCS: 12011; 70450; 70486; 72125; 90471; 90715; 96372; 99284; J2270

== ENCOUNTER 2024-02-09 06:00 | Outpatient (CLI) | payer MEDICARE, BC, SELFPAY | END 2024-02-09 23:59 | disposition home or self-care (01) | LOC: SPT 02-10 07:47 | PROVIDERS: Visit Provider Orthopaedic Surgery | DX: S12.201A Unspecified nondisplaced fracture of third cervical vertebra, initial encounter for closed fracture (principal); X58.XXXA Exposure to other specified factors, initial encounter | CPT/HCPCS: 99214 ==

== ENCOUNTER → 2024-02-09 13:23 | Outpatient (BNVA) | payer MEDICARE, BC, SELFPAY | PROVIDERS: PCP Family Medicine; Visit Provider Orthopaedic Surgery | DX: S12.201A Unspecified nondisplaced fracture of third cervical vertebra, initial encounter for closed fracture (principal); X58.XXXA Exposure to other specified factors, initial encounter | CPT/HCPCS: 72040 ==

== ENCOUNTER → 2024-03-01 12:42 | Outpatient (BNVA) | payer MEDICARE, BC, SELFPAY | PROVIDERS: Visit Provider Orthopaedic Surgery | DX: M54.2 Cervicalgia (principal) | CPT/HCPCS: 72040; 99213 ==

== ENCOUNTER → 2024-03-07 13:37 | Outpatient (BNVA) | payer MEDICARE, BC, SELFPAY | PROVIDERS: PCP Family Medicine; Visit Provider Family Medicine | DX: I10 Essential (primary) hypertension (principal); I25.10 Atherosclerotic heart disease of native coronary artery without angina pectoris; E78.5 Hyperlipidemia, unspecified; E09.9 Drug or chemical induced diabetes mellitus without complications; E03.9 Hypothyroidism, unspecified; R29.818 Other symptoms and signs involving the nervous system | CPT/HCPCS: 80053; 80061; 83036; 84443; 85025 ==

== ENCOUNTER → 2024-03-24 08:48 | Outpatient (BNVA) | payer MEDICARE, BC, SELFPAY | PROVIDERS: PCP Family Medicine; Referring Provider Psychiatry & Neurology Neurology; Visit Provider Psychiatry & Neurology Neurology | DX: R20.0 Anesthesia of skin (principal); M79.606 Pain in leg, unspecified; G62.9 Polyneuropathy, unspecified; R20.2 Paresthesia of skin; M79.604 Pain in right leg; M79.605 Pain in left leg | CPT/HCPCS: 95885; 95913 ==

== ENCOUNTER → 2024-03-29 13:07 | Outpatient (BNVA) | payer MEDICARE, BC, SELFPAY | PROVIDERS: PCP Family Medicine; Visit Provider Orthopaedic Surgery | DX: S12.290D Other displaced fracture of third cervical vertebra, subsequent encounter for fracture with routine healing (principal); S12.9XXD Fracture of neck, unspecified, subsequent encounter; X58.XXXD Exposure to other specified factors, subsequent encounter | CPT/HCPCS: 72040; 99214 ==

== ENCOUNTER 2024-04-24 13:44 | Emergency (ER) | payer MEDICARE, BC, SELFPAY ==
[2024-04-24 13:46] VITALS: BP 147/94; PULSE 78; RESP 18; TEMP 36.8; O2SAT 95; BMI 24.0
--- NOTE | 2024-04-24 13:47 | CTR_ITS ---
PROCEDURE INFORMATION: Exam: CT Cervical Spine Without Contrast Exam date and time: 04/24/2024 1:56 PM Age: 84 years old Clinical indication: Injury or trauma; Fall; Blunt trauma TECHNIQUE: Imaging protocol: Computed tomography of the cervical spine without contrast. Radiation optimization: All CT scans at this facility use at least one of these dose optimization techniques: automated exposure control; mA and/or kV adjustment per patient size (includes targeted exams where dose is matched to clinical indication); or iterative reconstruction. COMPARISON: CT cervical spin wo con* [id number] 02/05/2024 12:58 PM RADIATION DOSE METRICS: Total DLP (mGy-cm): 241.6 FINDINGS: Bones: Small, minimally distracted and displaced teardrop fracture anterior C3 vertebral body. Moderate C5-C6 and C6-C7 degenerative disc disease. Mild C3-C4 degenerative disc disease. Mild left facet osteoarthritis at the C7-T1 level. No other fractures. No dislocation. Otherwise, unremarkable. Lungs: Calcified granuloma left lung apex. Otherwise, unremarkable. Vasculature: Moderate amount of arterial calcification. Soft tissues: Otherwise, unremarkable soft tissues. CT/CT cervical spin wo con* [id number] IMPRESSION: 1. Small, minimally distracted and displaced teardrop fracture anterior C3 vertebral body. 2. No other acute cervical spine findings.
--- NOTE | 2024-04-24 13:47 | CTR_ITS ---
PROCEDURE INFORMATION: Exam: CT Maxillofacial Without Contrast Exam date and time: 04/24/2024 1:56 PM Age: 84 years old Clinical indication: Injury or trauma; Fall; Blunt trauma (contusions or hematomas); Forehead TECHNIQUE: Imaging protocol: Computed tomography of the face without contrast. Radiation optimization: All CT scans at this facility use at least one of these dose optimization techniques: automated exposure control; mA and/or kV adjustment per patient size (includes targeted exams where dose is matched to clinical indication); or iterative reconstruction. COMPARISON: CT facial bones wo con* [id number] 02/05/2024 12:58 PM RADIATION DOSE METRICS: Total DLP (mGy-cm): 663.3 FINDINGS: Paranasal sinuses: Mild bilateral sinusitis. Otherwise, unremarkable. Orbital cavities: Orbits are normal. Globes are unremarkable. Nasal cavity: Otherwise, unremarkable. Bones: Bilateral nasal bone fracture slightly depressed and displaced and angled to the left. Moderate deviation of the nasal septum to the right. No other fractures. Otherwise, unremarkable. Soft tissues: Anterior scalp and nasal soft tissue lacerations. Otherwise, unremarkable soft tissues. CT/CT facial bones wo con* [id number] IMPRESSION: 1. Bilateral nasal bone fracture slightly depressed and displaced and angled to the left. 2. No other fractures. 3. Additional details as above.
--- NOTE | 2024-04-24 13:47 | CTR_ITS ---
PROCEDURE INFORMATION: Exam: CT Head Without Contrast Exam date and time: 04/24/2024 1:56 PM Age: 84 years old Clinical indication: Injury or trauma; Fall; Blunt trauma (contusions or hematomas) TECHNIQUE: Imaging protocol: Computed tomography of the head without contrast. Radiation optimization: All CT scans at this facility use at least one of these dose optimization techniques: automated exposure control; mA and/or kV adjustment per patient size (includes targeted exams where dose is matched to clinical indication); or iterative reconstruction. COMPARISON: CT head wo con* [id number] 02/05/2024 12:58 PM RADIATION DOSE METRICS: Total DLP (mGy-cm): 1255.5 FINDINGS: Brain: Mild, diffuse atrophy of the brain.There is ill-defined, fairly symmetric low-density within the cerebral deep white matter bilaterally which is likely the sequela of chronic ischemic change due to small vessel disease. No CT evidence of mass effect, intracranial hemorrhage, or acute infarct. Otherwise, unremarkable. Cerebral ventricles: Mildly prominent ventricles due to the atrophy. Otherwise, unremarkable. Paranasal sinuses: Mild bilateral sinusitis. Mastoid air cells: Visualized mastoid air cells are well aerated. Auditory system: Clear middle ear cavities bilaterally. Bones: Bilateral nasal bone fractures. Otherwise, unremarkable. Soft tissues: Frontal scalp and nasal soft tissue lacerations. Otherwise, unremarkable soft tissues. CT/CT head wo con* [id number] IMPRESSION: 1. No acute intracranial findings. 2. Additional details as above.
--- NOTE | 2024-04-24 13:50 | W.ED.HEATRA ---
HPI - Head Injury General: Chief complaint: Head Injury Stated complaint: facial lac s/p fall Time Seen by Provider: 04/24/24 13:45 Source: patient and EMS Mode of arrival: EMS Limitations: no limitations History of Present Illness: 84-year-old male who states that he was not using his walker at a restaurant and tripped and fell he hit his face on tile he has a small laceration of the bridge of his nose and a laceration to his forehead he has a headache along with neck pain she denies any loss of consciousness denies any pain elsewhere. Associated symptoms: Reports neck pain; Deny nausea or vomiting Related Data Home Medications ?Medication ?Instructions ?Recorded ?Confirmed cholecalciferol (vitamin D3) 50 50 mcg PO DAILY 03/01/20 04/24/24 mcg (2,000 unit) capsule folic acid 400 mcg tablet 0.4 mg PO DAILY 03/06/21 04/24/24 apixaban 5 mg tablet (Eliquis) 5 mg PO BID 02/05/24 04/24/24 coenzyme Q10 100 mg capsule 100 mg PO DAILY 02/05/24 04/24/24 (CoQ-10) levothyroxine 137 mcg tablet 137 mcg PO DAILY 02/05/24 04/24/24 multivitamin 1 tab PO QAM 02/05/24 04/24/24 sacubitril 97 mg-valsartan 103 mg 1 tab PO DAILY 02/05/24 04/24/24 tablet (Entresto) zinc acetate 50 mg (zinc) capsule 100 mg PO DAILY 02/05/24 04/24/24 Previous Rx's ?Medication ?Instructions ?Recorded empagliflozin 25 mg tablet 25 mg PO DAILY DM #90 tabs 03/11/24 hydrocodone 5 mg-acetaminophen 325 1 tab PO Q6H PRN pain #14 tabs 04/24/24 mg tablet Allergies Allergy/AdvReac Type Severity Reaction Status Date / Time atorvastatin (From Lipitor) Allergy Unknown Unknown Verified 03/31/24 15:37 metformin (From Glucophage) AdvReac Severe ADR-Diarrhe Verified 03/31/24 15:37 a Review of Systems Const: Denies: fever(s), chills, body aches or change in appetite Eyes: Denies: blurry vision or eye discomfort ENMT: Denies: throat pain or dental pain Card: Denies: chest pain Resp: Denies: dyspnea GI: Denies: abdominal pain, nausea, vomiting or diarrhea Musc: Reports: neck pain; Denies: back pain Skin/Breast: Denies: rash Neuro: Reports: headache(s) PFS ED PFSH: Medical History Enrolled in chronic care management please do not remove from active HZV (herpes zoster virus) post herpetic neuralgia Pacemaker Anticoagulant long-term use ASHD (arteriosclerotic heart disease) Diabetes Atrial fibrillation A. fib with slow ventricular rate Dyslipidemia HTN (hypertension) CHF (congestive heart failure) Surgical History S/P carpal tunnel release S/P knee surgery S/P shoulder replacement Previous back surgery S/P cholecystectomy S/P appendectomy S/P CABG (coronary artery bypass graft) Family History Sister Cancer Mother Diabetes Denies family history of CAD (coronary artery disease) Clotting disorder Dementia Chronic kidney disease (CKD) Suicide Anesthesia complication Bleeding disorder Lung disease Stroke Social History Smoking and tobacco/nicotine status: never used tobacco/nicotine Second hand smoke exposure: No Alcohol intake: never Substance/Drug Use: never Adopted: No Caregiver/support person: No Lives independently: Yes Household members: spouse Housing: House Marital status: Current occupational status: retired Do you think of yourself as: Straight/Heterosexual Current gender identity: Female Physical Exam Const: COMMON NORMALS: no acute distress, patient oriented x3 and healthy appearing HENMT: OTHER: 6cm laceration to forehead, small less than 1cm lac to bridge of nose Eye: COMMON NORMALS: Equal, round and reactive pupils present and EOMs intact bilaterally PUPIL: Yes Equal, round and reactive pupils present Neck/C-Spine: OTHER: tenderness along c spine pt not placed in a c collar will place one here Chest: COMMONS NORMALS: normal inspection of the chest and normal palpation of entire chest wall Resp: COMMON NORMALS: normal respiratory effort Cardio: COMMON NORMALS: regular rate RATE: regular rate GI: COMMON NORMALS: Normal to inspection, nondistended, normoactive bowel sounds present, Soft to palpation, non-tender and no masses PALPATION: Yes Soft to palpation Extremity: COMMON NORMALS: normal to inspection and full ROM Neuro: COMMON NORMALS: patient oriented x3, moves all extremities and no focal motor deficits Psych: COMMON NORMALS: mental status grossly normal, Normal thought process present and cooperative THOUGHT PROCESS: Normal thought process present Skin: COMMON NORMALS: no rashes or lesions noted GENERAL SKIN EXAM: no rashes or lesions noted Procedures Laceration Laceration 1: Site: face (nose) Size (cm): 1 Description: linear Depth: simple, single layer Pre-repair: wound explored and irrigated extensively Skin layer closed with: other (dermabond) Laceration 2: Site: face Size (cm): 6 Description: linear Depth: simple, single layer Local Anesthetic: lidocaine 1% Amount of anesthesia used (mL): 8 Pre-repair: irrigated extensively and deep structures intact Skin layer closed with: nylon Size (cm): 5-0 Number of sutures: 6 Technique: simple, interrupted Course Vital Signs: Vital signs: Vital Signs Temperature 98.2 F 04/24/24 13:46 Pulse Rate 78 04/24/24 13:46 Respiratory Rate 18 04/24/24 13:46 Blood Pressure 147/94 04/24/24 13:46 Pulse Oximetry 95 04/24/24 13:46 Oxygen Delivery Me thod Room Air 04/24/24 13:46 MDM - Head Injury Medcial Decision Making Patient presents after a fall he did have a head laceration along with small nose lacerations both were repaired he does have a nasal fracture he has a cervical fracture had spoke to Dr. Morales will place in a c-collar and he is to follow-up with Dr. Hagen is to follow-up with ENT for the nose fracture inform the need to have sutures removed in 7 to 8 days he stable for discharge Medical Records I reviewed the patient's medical records. Lab Data Radiology Impressions Cervical Spine CT 04/24/24 13:47 IMPRESSION: 1. Small, minimally distracted and displaced teardrop fracture anterior C3 vertebral body. 2. No other acute cervical spine findings. ADDENDUM: 04/24/24 [id number] ADDENDUM: THIS REPORT CONTAINS FINDINGS THAT MAY BE CRITICAL TO PATIENT CARE. The findings were verbally communicated via telephone conference with SAM, KORBY at 3:11 PM REPATCHER on 04/24/2024. The findings were acknowledged and understood. Face CT 04/24/24 13:47 IMPRESSION: 1. Bilateral nasal bone fracture slightly depressed and displaced and angled to the left. 2. No other fractures. 3. Additional details as above. Head CT 04/24/24 13:47 IMPRESSION: 1. No acute intracranial findings. 2. Additional details as above. All radiology interpretation(s) finalized by discharge Discharge Plan Discharge Patient Disposition: Home Clinical Impression: Closed head injury, Laceration of head, Closed fracture nasal bone C3 cervical fracture Qualifiers: Encounter type: subsequent encounter Fracture type: closed Fracture morphology: other fracture Fracture alignment: displaced Fracture healing: with routine healing Qualified Code(s): S12.290D - Other displaced fracture of third cervical vertebra, subsequent encounter for fracture with routine healing Condition: Stable Prescriptions: New hydrocodone-acetaminophen 5-325 mg tablet 1 tab PO Q6H PRN (Reason: pain) Qty: 14 0RF No Action cholecalciferol (vitamin D3) 50 mcg (2,000 unit) capsule 50 mcg PO DAILY folic acid 400 mcg tablet 0.4 mg PO DAILY empagliflozin 25 mg tablet 25 mg PO DAILY Qty: 90 3RF multivitamin [Multi-Day] Tablet 1 tab PO QAM zinc acetate 50 mg (zinc) Capsule 100 mg PO DAILY coenzyme Q10 [CoQ-10] 100 mg Capsule 100 mg PO DAILY levothyroxine 137 mcg tablet 137 mcg PO DAILY Rx Instructions: TAKE 1 TABLET DAILY Eliquis 5 mg tablet 5 mg PO BID Rx Instructions: TAKE 1 TABLET BY MOUTH TWICE DAILY sacubitril-valsartan [Entresto] 97-103 mg tablet 1 tab PO DAILY Rx Instructions: TAKE 1 TABLET ONCE A DAY Discharge Orders: Discharge ED (Routine); Ordered 04/24/24 Ordered By: Jesús Betts Referrals: Gilbert Dempsey, [Primary Care Provider] - Discharge Diet: Advance as tolerated Discharge Activity: Resume usual activity Patient Instructions: Care For Your Stitches (ED), Nasal Fracture (ED), Cervical Fracture (ED) Activity Restrictions/Additional Instructions: suture removal in 7 days Print Language: Portuguese Coding Level of Care Code ED Hub Associate for Jenn Cabrera
[2024-04-24 15:39] VITALS: BP 140/82; PULSE 60; O2SAT 94
--- NOTE | 2024-04-27 08:42 | DCPLANNER ---
messaged ortho for er f/u
--- NOTE | 2024-04-27 08:48 | DCPLANNER ---
faxed referral packet to [facility]
== END 2024-04-24 15:39 | disposition home or self-care (01) ==
PROVIDERS: Emergency Provider Emergency Medicine; PCP Family Medicine
DX: S02.2XXA Fracture of nasal bones, initial encounter for closed fracture (principal); S09.8XXA Other specified injuries of head, initial encounter; S01.91XA Laceration without foreign body of unspecified part of head, initial encounter; S12.290D Other displaced fracture of third cervical vertebra, subsequent encounter for fracture with routine healing; Z79.01 Long term (current) use of anticoagulants; Z95.1 Presence of aortocoronary bypass graft; E11.9 Type 2 diabetes mellitus without complications; Z95.0 Presence of cardiac pacemaker; I11.0 Hypertensive heart disease with heart failure; I50.9 Heart failure, unspecified; E78.5 Hyperlipidemia, unspecified; W01.0XXA Fall on same level from slipping, tripping and stumbling without subsequent striking against object, initial encounter; X58.XXXD Exposure to other specified factors, subsequent encounter
CPT/HCPCS: 12014; 70450; 70486; 72125; 99284

== ENCOUNTER → 2024-05-03 15:18 | Outpatient (BNVA) | payer MEDICARE, BC, SELFPAY | PROVIDERS: PCP Family Medicine; Visit Provider Orthopaedic Surgery | DX: S12.290D Other displaced fracture of third cervical vertebra, subsequent encounter for fracture with routine healing (principal); W19.XXXD Unspecified fall, subsequent encounter; M79.604 Pain in right leg; M79.605 Pain in left leg; M79.671 Pain in right foot | CPT/HCPCS: 72040; 99214 ==

== ENCOUNTER → 2024-05-24 15:19 | Outpatient (BNVA) | payer MEDICARE, BC, SELFPAY | PROVIDERS: PCP Family Medicine; Visit Provider Orthopaedic Surgery | DX: S12.290D Other displaced fracture of third cervical vertebra, subsequent encounter for fracture with routine healing (principal); X58.XXXD Exposure to other specified factors, subsequent encounter | CPT/HCPCS: 72040; 99213 ==

== ENCOUNTER 2024-05-26 11:41 | Outpatient (CLI) | payer MEDICARE, BC, SELFPAY ==
--- NOTE | 2024-05-26 12:00 | CTR_ITS ---
PROCEDURE INFORMATION: Exam: CTA Left Lower Extremity With Contrast Exam date and time: 05/26/2024 12:35 PM Age: 84 years old Clinical indication: Prior surgery; Surgery date: 6+ months; Surgery type: Bilateral knees arthroscopy, back surgery x 2; Bilateral lower leg pain and numbness to above the knee x 3 years getting worse; Additional info: Bilateral leg pain TECHNIQUE: Imaging protocol: Computed tomographic angiography of the left lower extremity with contrast. 3D rendering (Not supervised by radiologist): MIP and/or 3D reconstructed images were created by the technologist. Radiation optimization: All CT scans at this facility use at least one of these dose optimization techniques: automated exposure control; mA and/or kV adjustment per patient size (includes targeted exams where dose is matched to clinical indication); or iterative reconstruction. Contrast material: OMNIPAQUE 350; Contrast volume: 100 ml; Contrast route: INTRAVENOUS (IV); COMPARISON: No relevant prior studies available. RADIATION DOSE METRICS: Total DLP (mGy-cm): 1344.9 FINDINGS: Left femoral/popliteal arteries: No occlusion or significant stenosis. Left infrapopliteal arteries: Diffuse trifurcation disease with extensive atherosclerotic calcification present most pronounced within the anterior tibial and posterior tibial arteries resulting in markedly diminished flow below the knee. Plantar arch and dorsalis pedis are not visualized and presumed occluded. There are similar changes from diffuse trifurcation disease within the right lower leg also noted. Bones/joints: Moderate degenerative changes left knee. No acute bony abnormalities. Soft tissues: Unremarkable. CT/CT angio [facility] [id number] IMPRESSION: Diffuse trifurcation disease left lower leg with extensive atherosclerotic changes resulting in significantly diminished flow below the knee.
[2024-05-26 12:29] LABS: Blood Urea Nitrogen 18 mg/dL (8-23)
[2024-05-26] MEDS: iohexol 350 mg/mL 500 mL Btl (per mL) IV (12:43)
== END 2024-05-26 11:42 | disposition home or self-care (01) ==
PROVIDERS: PCP Family Medicine; Visit Provider Orthopaedic Surgery
DX: M79.604 Pain in right leg (principal); M79.605 Pain in left leg; M79.671 Pain in right foot; M79.672 Pain in left foot; I70.202 Unspecified atherosclerosis of native arteries of extremities, left leg; R93.6 Abnormal findings on diagnostic imaging of limbs
CPT/HCPCS: 73706; 82565; 84520

== ENCOUNTER → 2024-05-31 14:27 | Outpatient (BNVA) | payer MEDICARE, BC, SELFPAY | PROVIDERS: PCP Family Medicine; Visit Provider Orthopaedic Surgery | DX: Z09 Encounter for follow-up examination after completed treatment for conditions other than malignant neoplasm (principal); M54.50 Low back pain, unspecified; M79.604 Pain in right leg; M79.605 Pain in left leg | CPT/HCPCS: 99214 ==

== ENCOUNTER → 2024-06-02 11:15 | Outpatient (BNVA) | payer MEDICARE, BC, SELFPAY | PROVIDERS: PCP Family Medicine; Visit Provider Family Medicine | DX: E09.9 Drug or chemical induced diabetes mellitus without complications (principal); I25.5 Ischemic cardiomyopathy | CPT/HCPCS: 80053; 80061; 83036 ==

== ENCOUNTER 2024-06-14 07:51 | Outpatient (CLI) | payer MEDICARE, BC, SELFPAY ==
--- NOTE | 2024-06-14 08:15 | CT_ITS ---
WS: [id number] CT lumbar spine with contrast. HISTORY: lumbar pain TECHNIQUE: Contiguous 2.0 mm axial imaging performed from T12 through the mid sacral level. Bone and soft tissue windows reviewed. Sagittal and coronal reformats are submitted and reviewed. DLP: 382.[address] scans at [facility] use at least one of these dose optimization techniques: automated exposure control; mA and/or kV adjustment per patient size (includes targeted exams where dose is matched to clinical indication); or iterative reconstruction. COMPARISON: 12/31/2023 Contrast: Omnipaque 350; 100 cc. History: Numbness upper and lower legs for 6 months. Progressing. Prior back surgeries. Osteopenia with severe degenerative disc disease and LEFT rotoscoliosis and facet arthritis. Partial fusion across the L3-4 disc. L5 anterolisthesis by 10 mm. Vacuum disc phenomenon at T12-L1, L1-2 and L2-3. Hypertrophic osteophytes at all levels. No fracture. L1-L2: 2 mm retrolisthesis of L1, osteophytic ridging and facet arthritis. Severe bilateral foraminal stenosis predominantly due to osteophytes has progressed. Mild subarticular recess encroachment. L2-L3: 2 mm retrolisthesis of L2. Mild osteophytic ridging with ligamentum flavum and facet arthritis. Severe bilateral foraminal stenosis, RIGHT greater than LEFT. Mild progression since the prior study. L3-L4: Osteophytic ridging, large posterior laminectomy defect. Low-attenuation consistent with fluid extending through the laminectomy defect. Marked facet joint arthritis. Moderate bilateral foraminal stenosis. L4-L5: Diffuse osteophytic ridging. Bone grafting is contiguous posterior to the thecal sac which is widely patulous. Severe facet joint arthritis with partial fusion of the facet joints. Mild RIGHT and moderate LEFT foraminal stenosis. L5-S1: Diffuse osteophytic ridging, complete bone graft posterior to the thecal sac which is widely patent. Severe bilateral foraminal stenosis, LEFT greater than RIGHT. Similar to the prior study. Mild vascular calcifications. Contrast being excreted into the renal pelves. CT/CT lumbar spine w con [id number] IMPRESSION: 1. 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 2. Multiple areas of stenosis and facet arthritis. 3. L5 anterolisthesis by 10 mm. 4. L5-S1: Severe bilateral foraminal stenosis, LEFT greater than RIGHT. 5. L4-5: Severe facet joint arthritis. Moderate LEFT and mild RIGHT foraminal stenosis. 6. L3-4: Moderate bilateral foraminal stenosis. Large posterior laminectomy de fect with bony fusion posteriorly. 7. L2-3: Severe bilateral foraminal stenosis, RIGHT greater than LEFT with mil d progression since the prior study. 8. L1-2: Severe bilateral foraminal stenosis predominantly due to osteophytes has progressed. Mild subarticular recess encroachment. 9. Posterior laminectomy defect at L3-4 without bone fusion. Fluid extends thr ough the defect but there is no enhancement. Similar to the prior study. 10. Extensive facet joint arthropathy with bony hypertrophy and multiple areas of fusion.
[2024-06-14] MEDS: iohexol 350 mg/mL 500 mL Btl (per mL) IV (09:02)
== END 2024-06-14 07:52 | disposition home or self-care (01) ==
PROVIDERS: PCP Family Medicine; Visit Provider Orthopaedic Surgery
DX: M48.07 Spinal stenosis, lumbosacral region (principal); M79.604 Pain in right leg; M79.605 Pain in left leg; M41.86 Other forms of scoliosis, lumbar region; M43.16 Spondylolisthesis, lumbar region; M47.896 Other spondylosis, lumbar region; M48.061 Spinal stenosis, lumbar region without neurogenic claudication; M96.89 Other intraoperative and postprocedural complications and disorders of the musculoskeletal system; M25.78 Osteophyte, vertebrae; Z98.890 Other specified postprocedural states; M85.80 Other specified disorders of bone density and structure, unspecified site; M51.34 Other intervertebral disc degeneration, thoracic region; M51.369 Other intervertebral disc degeneration, lumbar region without mention of lumbar back pain or lower extremity pain; M24.28 Disorder of ligament, vertebrae; I70.90 Unspecified atherosclerosis; R93.5 Abnormal findings on diagnostic imaging of other abdominal regions, including retroperitoneum
CPT/HCPCS: 72132

== ENCOUNTER 2024-06-18 10:23 | Inpatient (IN) | payer MEDICARE, BC, SELFPAY ==
[2024-06-18] VITALS (12 sets, daily range): BP systolic 92–120; BP diastolic 50–78; PULSE 60–73; RESP 18–25; TEMP 36.6–36.9; O2SAT 90–99; BMI 23.7
--- NOTE | 2024-06-18 10:31 | ECG_ITS ---
[facility] Test Date: 2024-06-18 Pat Name: Artis Boston Department: Room: Gender: Male Supervisor Files: : 1940 Requested By: Tim Murphy Order Number: [id number] Sidra MD: CHRIS VAZQUEZ Measurements Intervals Spencer Rate: 60 P: 0 DC: 0 QRS: -59 QRSD: 204 T: 121 QT: 499 QTc: 501 Interpretive Statements ELECTRONIC VENTRICULAR PACEMAKER ABNORMAL RHYTHM ECG Compared to ECG 06/08/2023 16:35:18 No significant changes Electronically Signed On 06-20-2024 20:59:50 CDT by CHRIS VAZQUEZ [email or web address]
--- NOTE | 2024-06-18 10:31 | XRR_ITS ---
PROCEDURE INFORMATION: Exam: XR Chest Exam date and time: 06/18/2024 10:42 AM Age: 84 years old Clinical indication: Fever and shortness of breath and other: Hypoxia; Prior surgery; Surgery date: 1-6 months; Surgery type: Pacemaker, unspecified open heart; Additional info: Hypoxia, fever TECHNIQUE: Imaging protocol: Radiologic exam of the chest. Views: 1 view. COMPARISON: CR XR chest 1V [id number] 11/12/2020 1:11 PM FINDINGS: Tubes, catheters and devices: There is a single lead pacemaker on the right. Lungs: See Heart/Mediastinum finding. Pleural spaces: Unremarkable. No pleural effusion. No pneumothorax. Heart/Mediastinum: The heart is borderline enlarged. Sternal wires are present from prior cardiac surgery. There may be minimal patchy infiltrate or atelectasis at the left lung base. No definite lobar consolidation is appreciated. Bones/joints: There are postoperative changes status post right shoulder replacement. XR/XR chest 1V portable [id number] IMPRESSION: 1. Patchy infiltrate or atelectasis left lung base.
[2024-06-18 10:49] LABS: Basophils % 0.3 %; Hematocrit 42.8 % (37-53); Lymphocytes # 0.3 10^3/uL (0.8-4.8); Lymphocytes % 1.9 %; Mean Corpuscular Hemoglobin 31.3 pg (27-33); Mean Corpuscular Volume 97.7 fl (82-101); Mean Platelet Volume 11.9 fL (7.4-10.4); Monocytes % 6.1 %; Neutrophils # 14.49 10^3/uL (1.8-7.7); Neutrophils % 91.3 %; Nucleated Red Blood Cells % 0 %; Platelet Count 167 10^3/cmm (157-399); Red Blood Count 4.38 10^6/uL (3.85-5.65); Red Cell Distribution Width 13.2 % (12.1-15.1); White Blood Count 15.86 10^3/uL (3.29-11.43)
--- NOTE | 2024-06-18 10:49 | W.ED.WEAKNES ---
HPI - Weakness General: Chief complaint: Weakness Stated complaint: weakness Time Seen by Provider: 06/18/24 10:29 History of Present Illness: Patient is a generally well-appearing 84-year-old male from home where he lives with his seen for generalized weakness and cough and feeling generally unwell. 911 was called for lift assist as he slid out of his bed trying to get from bed to the bathroom using his walker as he normally does. EMS found him on the ground. He did not lose consciousness or strike his head. He does take Eliquis. He describes general weakness and cough of roughly 2 to 3 days duration. He denies vomiting, dysuria, abdominal pain, diarrhea, constipation, chest pain, and has no other acute complaints. He has not taken anything for his cough. He denies unilateral weakness, visual disturbance, and has no other symptoms of stroke. [facility] ED PFSH: Medical History Enrolled in chronic care management please do not remove from active HZV (herpes zoster virus) post herpetic neuralgia Pacemaker Anticoagulant long-term use ASHD (arteriosclerotic heart disease) Diabetes Atrial fibrillation A. fib with slow ventricular rate Dyslipidemia HTN (hypertension) CHF (congestive heart failure) Surgical History S/P carpal tunnel release S/P knee surgery S/P shoulder replacement Previous back surgery S/P cholecystectomy S/P appendectomy S/P CABG (coronary artery bypass graft) Family History Sister Cancer Mother Diabetes Denies family history of CAD (coronary artery disease) Clotting disorder Dementia Chronic kidney disease (CKD) Suicide Anesthesia complication Bleeding disorder Lung disease Stroke Social History Smoking and tobacco/nicotine status: never used tobacco/nicotine Second hand smoke exposure: No Alcohol intake: never Substance/Drug Use: never Adopted: No Caregiver/support person: No Lives independently: Yes Household members: spouse Housing: House Marital status: Current occupational status: retired Do you think of yourself as: Straight/Heterosexual Current gender identity: Female Physical Exam Const: COMMON NORMALS: no acute distress, patient oriented x3 and alert HENMT: COMMON NORMALS: normocephalic and atraumatic HEAD & SCALP: normocephalic and atraumatic Eye: COMMON NORMALS: Equal, round and reactive pupils present, EOMs intact bilaterally and no scleral icterus PUPIL: Yes Equal, round and reactive pupils present Resp: COMMON NORMALS: normal respiratory effort and No retractions Cardio: COMMON NORMALS: regular rate, regular rhythm and No murmurs present (Cardio) RATE: regular rate RHYTHM: regular rhythm GI: COMMON NORMALS: Normal to inspection, nondistended, normoactive bowel sounds present, Soft to palpation and non-tender PALPATION: Yes Soft to palpation Extremity: NARRATIVE EXTREMITY EXAM: Generally emaciated, significant muscle atrophy of the bilateral arms and legs. Arthritic changes of the toes and fingers. Neuro: COMMON NORMALS: patient oriented x3 SENSORIUM/ORIENTATION: Yes alert Skin: GENERAL SKIN EXAM: other (Multiple excoriations of the anterior shins bilaterally which do not appear) Course Vital Signs: Vital signs: Vital Signs Temperature 98.4 F 06/18/24 15:44 Pulse Rate 64 06/18/24 15:44 Respiratory Rate 18 06/18/24 15:44 Blood Pressure 105/54 06/18/24 15:44 Pulse Oximetry 92 06/18/24 15:44 Oxygen Delivery Me thod Room Air 06/18/24 15:44 Oxygen Flow Rate 2 06/18/24 13:57 MDM - Weakness Medical Decision Making In summary, patient is a 84-year-old male from home seen for cough, generalized weakness, and shortness of breath. He slid from his bed did not harm himself or strike his head. He he is newly requiring 2 L nasal cannula oxygen to stay above 90%. Chest x-ray appears to show left lower lobe pneumonia. White blood cell count is elevated at 15,000 and lactic acid is mildly elevated. I suspect community-acquired pneumonia could be the etiology of his symptoms and started him on ceftriaxone and azithromycin. Blood pressure remained soft after first liter of IV fluids thus a second liter was ordered and mean arterial pressure appears to be stabilizing around 70. Most recent echocardiogram showed ejection fraction of roughly 45% and BNP is somewhat elevated but have no prior values for comparison but I do suspect mild dehydration at this time and he has not shown evidence of fluid overload with IV fluids thus far. I spoke with the hospitalist on-call who will admit the patient in guarded but relatively stable condition. Lab Data 06/18/24 10:42 06/18/24 10:42 Radiology Impressions Chest X-Ray 06/18/24 10:31 IMPRESSION: 1. Patchy infiltrate or atelectasis left lung base. Laboratory Results WBC 15.86 10^3/uL (3.29-11.43) H 06/18/24 10:42 RBC 4.38 10^6/uL (3.85-5.65) 06/18/24 10:42 Hgb 13.70 g/dL (11.27-16.99) 06/18/24 10:42 Hct 42.8 % (37-53) 06/18/24 10:42 MCV 97.7 fl (82-101) 06/18/24 10:42 MCH 31.3 pg (27-33) 06/18/24 10:42 MCHC 32.0 g/dL (30-55) 06/18/24 10:42 RDW 13.2 % (12.1-15.1) 06/18/24 10:42 Plt Count 167 10^3/cmm (157-399) 06/18/24 10:42 MPV 11.9 fL (7.4-10.4) H 06/18/24 10:42 Neut % (Auto) 91.3 % 06/18/24 10:42 Lymph % (Auto) 1.9 % 06/18/24 10:42 [place] % (Auto) 6.1 % 06/18/24 10:42 Eos % (Auto) 0.0 % 06/18/24 10:42 Baso % (Auto) 0.3 % 06/18/24 10:42 Neut # (Auto) 14.49 10^3/uL (1.8-7.7) H 06/18/24 10:42 Lymph # (Auto) 0.3 10^3/uL (0.8-4.8) L 06/18/24 10:42 Ed[place]on # (Auto) 1.0 10^3/uL (0.2-0.9) H 06/18/24 10:42 Eos # (Auto) 0.0 10^3/uL (0.0-0.8) 06/18/24 10:42 Baso # (Auto) 0.0 10^3/uL (0.0-0.1) 06/18/24 10:42 Nucleated RBC % (auto) 0 % 06/18/24 10:42 Nucleated RBCs # 0.0 /100WBC 06/18/24 10:42 Specimen Type Venous 06/18/24 12:05 Sample Site Not specified 06/18/24 12:05 [place]ingo Test N/a 06/18/24 12:05 VBG pH 7.35 (7.32-7.42) 06/18/24 12:05 VBG pCO2 43.1 mmHg (41-51) 06/18/24 12:05 VBG pO2 28.9 mmHg (25-40) 06/18/24 12:05 VBG HCO3 23.5 mmol/L (24-28) L 06/18/24 12:05 VBG Base Excess -2.2 mmol/L (-3.0-3.0) 06/18/24 12:05 VBG Hematocrit 42.3 % (42-52) 06/18/24 12:05 O2 Delivery Device Nc 06/18/24 12:05 Retail Loan Originator ID Amh 06/18/24 12:05 Sodium 143 mmol/L (136-145) 06/18/24 10:42 Potassium 4.1 mmol/L (3.5-5.1) 06/18/24 10:42 Chloride 104 mmol/L (98-107) 06/18/24 10:42 Carbon Dioxide 20 mmol/L (22-29) L 06/18/24 10:42 Anion Gap 23.1 (5-19) H 06/18/24 10:42 BUN 18 mg/dL (8-23) 06/18/24 10:42 Creatinine 0.9 mg/dL (0.7-1.2) 06/18/24 10:42 GFR Calculation Not Reportable 06/18/24 10:42 Glucose 231 mg/dL (65-115) H 06/18/24 10:42 Calculated Osmolality 305 mOsm/kg (285-295) H 06/18/24 10:42 Lactic Acid 2.4 mmol/L (0.5-2.2) H 06/18/24 10:42 Lactic Acid (Sepsis) 1.7 mmol/L (0.5-2.2) 06/18/24 13:33 Calcium 9.4 mg/dL (8.5-10.5) 06/18/24 10:42 Total Bilirubin 1.9 mg/dL (0.15-1.2) H 06/18/24 10:42 AST 29 U/L (0-40) 06/18/24 10:42 ALT 21 U/L (0-41) 06/18/24 10:42 Alkaline Phosphatase 98 U/L (40-130) 06/18/24 10:42 Troponin T Baseline 61 ng/L (0-15) H 06/18/24 10:42 Troponin T 120 Minute 89.35 ng/L (0-15) H 06/18/24 12:06 Delta Troponin T 28.35 ABS# (0-10) H* 06/18/24 12:06 NT-Pro-B Natriuret Pep 4428 pg/mL (0-450) H 06/18/24 10:42 Total Protein 6.8 g/dL (6.6-8.7) 06/18/24 10:42 Albumin 4.1 g/dL (3.5-5.2) 06/18/24 10:42 Globulin 2.7 g/dL (1.3-4.6) 06/18/24 10:42 Urine Color Yellow (Yellow) 06/18/24 10:55 Urine Appearance Clear (CLEAR) 06/18/24 10:55 Urine pH 5.0 (5-7) 06/18/24 10:55 Ur Specific Weatherby 1.039 (1.005-1.030) H 06/18/24 10:55 Urine Protein Trace (Negative) A 06/18/24 10:55 Urine Glucose (UA) 3+ (Normal) H 06/18/24 10:55 Urine Ketones 3+ (Negative) H 06/18/24 10:55 Urine Blood Negative (Negative) 06/18/24 10:55 Urine Nitrate Negative (Negative) 06/18/24 10:55 Urine Bilirubin Negative (Negative) 06/18/24 10:55 Urine Urobilinogen 1.0 mg/dL (Negative) 06/18/24 10:55 Ur Leukocyte Esterase Negative (Negative) 06/18/24 10:55 Urine RBC 0-2 /hpf (0-2) 06/18/24 10:55 Urine WBC 6-10 /hpf (0-5) 06/18/24 10:55 Ur Squamous Epith Cells 0-5 /hpf (0-5) 06/18/24 10:55 Amorphous Sediment Not Reportable 06/18/24 10:55 Urine Bacteria None seen /hpf (NONE) 06/18/24 10:55 Hyaline Casts 0-4 /lpf H 06/18/24 10:55 Adenovirus (PCR) Not detected (NOT DETECT) 06/18/24 11:20 C. pneumoniae DNA (PCR) Not detected (NOT DETECT) 06/18/24 11:20 Coronavirus 229E (PCR) Not detected (NOT DETECT) 06/18/24 11:20 Human Metapneumovir PCR Not detected (NOT DETECT) 06/18/24 11:20 Influenza A (H1) PCR Not detected (NOT DETECT) 06/18/24 11:20 Influ A (H1/09) PCR Not detected (NOT DETECT) 06/18/24 11:20 Influenza A (H3) PCR Not detected (NOT DETECT) 06/18/24 11:20 Influenza Type A (PCR) Not detected (NOT DETECT) 06/18/24 11:20 Influenza Type B (PCR) Not detected (NOT DETECT) 06/18/24 11:20 M. pneumoniae (PCR) Not detected (NOT DETECT) 06/18/24 11:20 Parainfluenza 1 (PCR) Not detected (NOT DETECT) 06/18/24 11:20 Parainfluenza 2 (PCR) Not detected (NOT DETECT) 06/18/24 11:20 Parainfluenza 3 (PCR) Not detected (NOT DETECT) 06/18/24 11:20 Parainfluenza 4 (PCR) Not detected (NOT DETECT) 06/18/24 11:20 RSV Type A (PCR) Not detected (NOT DETECT) 06/18/24 11:20 RSV Type B (PCR) Not detected (NOT DETECT) 06/18/24 11:20 Entero/Rhino (PCR) Detected (NOT DETECT) A 06/18/24 11:20 SARS-CoV-2 (PCR) Not detected (NOT DETECT) 06/18/24 11:20 All radiology interpretation(s) finalized by discharge EKG Data EKG 1: I personally reviewed and interpreted this EKG as follows: Interpretation: Time?1040?ventricularly paced rhythm with negative Sgarbossa criteria, rate of 60, QTc = 500. QRS duration of 204. Discharge Plan Discharge Patient Disposition: Admitted As Inpatient Admit Provider: Arturo Lou Clinical Impression: Left lower lobe pneumonia, Hypoxia Condition: Stable Coding Level of Care Code ED Transformation Consultant for Chg Fwd Related Data Home Medications ?Medication ?Instructions ?Recorded ?Confirmed cholecalciferol (vitamin D3) 50 50 mcg PO DAILY 03/01/20 06/18/24 mcg (2,000 unit) capsule folic acid 400 mcg tablet 0.4 mg PO DAILY 03/06/21 06/18/24 coenzyme Q10 100 mg capsule 100 mg PO DAILY 02/05/24 06/18/24 (CoQ-10) levothyroxine 137 mcg tablet 137 mcg PO DAILY 02/05/24 06/18/24 multivitamin 1 tab PO QAM 02/05/24 06/18/24 sacubitril 97 mg-valsartan 103 mg 1 tab PO DAILY 02/05/24 06/18/24 tablet (Entresto) zinc acetate 50 mg (zinc) capsule 100 mg PO DAILY 02/05/24 06/18/24 empagliflozin 25 mg tablet 25 mg PO DAILY DM 06/18/24 06/18/24 (Jardiance) Previous Rx's ?Medication ?Instructions ?Recorded soft cervical collar #1 ea 05/03/24 apixaban 5 mg tablet (Eliquis) See Rx Instructions .Route 05/19/24 .COMPLEX #180 tabs Allergies Allergy/AdvReac Type Severity Reaction Status Date / Time atorvastatin (From Lipitor) Allergy Unknown Unknown Verified 06/07/24 14:29 metformin (From Glucophage) AdvReac Severe ADR-Diarrhe Verified 06/07/24 14:29 a
[2024-06-18] MEDS: acetaminophen 325 mg Tablet 650 MG PO (10:58)
[2024-06-18 11:02] LABS: Bilirubin Urine Negative (Negative); Blood Urine Negative (Negative); Glucose Urine UA 3+ (Normal); Ketones Urine 3+ (Negative); Leukocyte Esterase Urine Negative (Negative); Nitrate Urine Negative (Negative); Protein Urine Trace (Negative); Urine Appearance Clear (CLEAR); Urine Color Yellow (Yellow)
[2024-06-18 11:07] LABS: Troponin(5th) Baseline 61 ng/L (0-15)
[2024-06-18 11:07] LABS: Add Urine Microscopic? YES; Bacteria Urine None Seen /hpf; Hyaline Casts Urine 0-4 /lpf; RBC Urine 0-2 /hpf (0-2); Squamous Epithelial Cell Urine 0-5 /hpf (0-5)
[2024-06-18 11:11] LABS: Lactic Sepsis W/Reflex 2.4 mmol/L (0.5-2.2)
[2024-06-18 11:17] LABS: Alanine Aminotransferase 21 U/L (0-41); Albumin Level 4.1 g/dL (3.5-5.2); Alkaline Phosphatase 98 U/L (40-130); Anion Gap 23.1 (5-19); Aspartate Amino Transferase 29 U/L (0-40); Blood Urea Nitrogen 18 mg/dL (8-23); Calcium 9.4 mg/dL (8.5-10.5); Carbon Dioxide 20 mmol/L (22-29); Chloride 104 mmol/L (98-107); Creatinine Clr Calc Pharmacy 68.0465; Globulin 2.7 g/dL (1.3-4.6); Glucose 231 mg/dL (65-115); NT Pro B Type Natriuretic Pept 4428 pg/mL (0-450); Osmolality Calculated 305 mOsm/kg (285-295); Potassium 4.1 mmol/L (3.5-5.1); Sodium 143 mmol/L (136-145); Total Bilirubin 1.9 mg/dL (0.15-1.2); Total Protein 6.8 g/dL (6.6-8.7)
[2024-06-18 11:38] LABS: Specific Gravity, Urine 1.039 (1.005-1.030)
[2024-06-18] MEDS: sodium chloride 0.9% 1,000 ML 999 ML IV ×2 (11:55→13:20)
[2024-06-18 12:11] LABS: Base Excess VBG -2.2 mmol/L (-3.0-3.0); Blood Gas Operator Identificat AMH; Blood Gas Sample Site Not specified; Blood Gas Sample Type Venous; HCO3 VBG 23.5 mmol/L (24-28); Oxygen Device NC; PCO2 VBG 43.1 mmHg (41-51); PO2 VBG 28.9 mmHg (25-40); Venous Blood Gas Hematocrit 42.3 % (42-52); pH VBG 7.35 (7.32-7.42)
[2024-06-18 12:33] LABS: Troponin 5 2HR 89.35 ng/L (0-15)
[2024-06-18 12:34] LABS: Reflex Lactate Order REFLEX LACTIC ORDERD
[2024-06-18 12:44] LABS: Troponin 5 2HR Delta 28.35 ABS# (0-10)
[2024-06-18 13:11] LABS: Adenovirus Not Detected (NOT DETECT); Chlamydia Pneumoniae Not Detected (NOT DETECT); Coronavirus 229E,HKU1,NL63,OC4 Not Detected (NOT DETECT); Human Metapneumovirus Not Detected (NOT DETECT); Human Rhinovirus/Enterovirus Detected (NOT DETECT); Influenza A Not Detected (NOT DETECT); Influenza A H1 Not Detected (NOT DETECT); Influenza A H1-2009 Not Detected (NOT DETECT); Influenza A H3 Not Detected (NOT DETECT); Influenza B Not Detected (NOT DETECT); Mycoplasma Pneumoniae Not Detected (NOT DETECT); Parainfluenza Virus Type 1 Not Detected (NOT DETECT); Parainfluenza Virus Type 2 Not Detected (NOT DETECT); Parainfluenza Virus Type 3 Not Detected (NOT DETECT); Parainfluenza Virus Type 4 Not Detected (NOT DETECT); Respiratory Syncytial Virus A Not Detected (NOT DETECT); Respiratory Syncytial Virus B Not Detected (NOT DETECT); SARS-COV-2 Not Detected (NOT DETECT)
[2024-06-18] MEDS: cefTRIAXone 1,000 mg SDV 1000 MG IVP (13:20)
--- NOTE | 2024-06-18 13:23 | PM.HP ---
Providers/Chief Complaint Admitting Physician: Dr. Arturo Lou Primary Care Provider: Gilbert Dempsey DO Chief Complaint: weakness History of Present Illness Artis Boston is a 84 year old male with hx of HFrEF, CAD with hx of CABG on eliquis, afib with pacemaker, DM2, hypothyroidism presents to ED s/p fall at home. pt was at home, slid off bed and onto the floor, landed on his backside and side, no head-strike. States he had a cough x 2-3 days with a sore throat. When EMS arrived they noticed hey was hypoxic with an sp02 in mid s, was place don 2.5L NC. States he otherwise feels well except for some weakness. On arrival to ED pt was hypotensive and hypoxic. he was place don 2.5L NC and given 1L NS. CXR showed left lower lobe atellectasis. Blood work showed elevated WBC with a LEFT shift, and a lactic acid of 2.4. Pt was given an additional 1L NS. proBN: 4428 which is 10x last taken BNP in 2022. Denies sensation of fluid in lungs, orthopnea or dyspnea. Delta elevated with normal paced EKG. Review of Systems General: Reports: 10 or more systems reviewed and unremarkable except in HPI and below Const: Denies: fever(s) or chills Eyes: Denies: change in vision or blurry vision ENMT: Denies: throat pain, odynophagia or hoarseness Card: Denies: chest pain, palpitations or dyspnea on exertion Resp: Reports: productive cough; Denies: dyspnea, non-productive cough or wheezing GI: Denies: abdominal pain, nausea, vomiting, diarrhea or constipation Musc: Denies: neck pain, back pain or joint pain Skin/Breast: Denies: rash or new lesions Neuro: Denies: headache(s), numbness in extremities or weakness in extremities Medications/Allergies Home Medications ?Medication ?Instructions ?Recorded ?Confirmed ?Last Taken ?Type cholecalciferol (vitamin D3) 50 50 mcg PO DAILY 03/01/20 06/18/24 06/18/24 History mcg (2,000 unit) capsule folic acid 400 mcg tablet 0.4 mg PO DAILY 03/06/21 06/18/24 06/18/24 History coenzyme Q10 100 mg capsule 100 mg PO DAILY 02/05/24 06/18/24 06/18/24 History (CoQ-10) levothyroxine 137 mcg tablet 137 mcg PO DAILY 02/05/24 06/18/24 06/18/24 History multivitamin 1 tab PO QAM 02/05/24 06/18/24 06/18/24 History sacubitril 97 mg-valsartan 103 mg 1 tab PO DAILY 02/05/24 06/18/24 06/18/24 History tablet (Entresto) zinc acetate 50 mg (zinc) capsule 100 mg PO DAILY 02/05/24 06/18/24 06/18/24 History soft cervical collar #1 ea 05/03/24 06/18/24 Unknown Rx apixaban 5 mg tablet (Eliquis) See Rx Instructions .Route 05/19/24 06/18/24 06/18/24 07:00 Rx .COMPLEX #180 tabs empagliflozin 25 mg tablet 25 mg PO DAILY DM 06/18/24 06/18/24 06/18/24 History (Jardiance) Allergies Allergy/AdvReac Type Severity Reaction Status Date / Time atorvastatin (From Lipitor) Allergy Unknown Unknown Verified 06/07/24 14:29 metformin (From Glucophage) AdvReac Severe ADR-Diarrhe Verified 06/07/24 14:29 a PFSH Acute PFSH: Medical History Enrolled in chronic care management please do not remove from active HZV (herpes zoster virus) post herpetic neuralgia Pacemaker Anticoagulant long-term use ASHD (arteriosclerotic heart disease) Diabetes Atrial fibrillation A. fib with slow ventricular rate Dyslipidemia HTN (hypertension) CHF (congestive heart failure) Surgical History S/P carpal tunnel release S/P knee surgery S/P shoulder replacement Previous back surgery S/P cholecystectomy S/P appendectomy S/P CABG (coronary artery bypass graft) Family History Sister Cancer Mother Diabetes Denies family history of CAD (coronary artery disease) Clotting disorder Dementia Chronic kidney disease (CKD) Suicide Anesthesia complication Bleeding disorder Lung disease Stroke Social History Smoking and tobacco/nicotine status: never used tobacco/nicotine Second hand smoke exposure: No Alcohol intake: never Substance/Drug Use: never Adopted: No Caregiver/support person: No Lives independently: Yes Household members: spouse Housing: House Marital status: Current occupational status: retired Do you think of yourself as: Straight/Heterosexual Current gender identity: Female Vitals/I&O/Wt Last Vital Signs Temp 98.3 F 06/18/24 10:24 Pulse 60 06/18/24 12:53 Resp 18 06/18/24 10:24 BP 93/51 06/18/24 13:06 Pulse Ox 95 06/18/24 13:06 O2 Del Method Nasal Cannula 06/18/24 13:06 O2 Flow Rate 2 06/18/24 13:06 06/17/24 06/18/24 06/18/24 22:59 06:59 14:59 Intake Total 1000 / 1000 Balance 1000 / 1000 Weight last 48 hrs Weight 170 lb Physical Exam Narrative: General: AOx3, no acute distress, well developed, well nourished, appears stated age. 2.5lmp psych: appropriate mood and affect. good judgment and insight. Ears: clear external auditory canals,Hearing intact Eyes: conjunctiva clear w/o exudate or hemorrhage. non-icteric, EOM intact, PERRLA. no signs of nystagmus Nose: nasal mucosa pink, septum midline, NC in place Oropharynx: good dentition. no pharyngeal exudate Neck: FROM, no lymphadenopathy, no tracheal deviation Chest: atraumatic, symmetrical CVD: RRR, normal S1 and S2, no M/R/G. 2+ pulse x 4 extremities, no JVD, no carotid bruit. Lungs: bilateral rhonci throughout lung field. mild crackles at base. no wheezing. Abdomen: NT, ND, soft, NABS. Extremities: FROM and 5/5 strength in BUE and BLE. no visible joint abnormalities on active and passive ROM. Neuro: CNII-XII grossly intact. No atrophy, weakness, tremors or clonus.? 2+ DTR, no sensory abnormalities. Skin:? no rash, vesicles, lesions. 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 likely pneumonia -+ve rhino/entero virus hypoxemic respiratory failure Hypotension HfrEF (EF 45%) exacerbation DM2 afib with pacemaker hypothyroidism P: admit to [facility] s/p 2 L NS in ED, rocephin IVP 1g sepsis. given 2L in ED, Bcx attained will start on empiric Abx for CAP coverage: rocephin + Azithro hold further fluid given BNP. will re-eval later today. if requiring more fluid will administer LR 70cc/r gently possible diuresis give BNP levels; however have to watch MAP as pt is only borderline normal will get new ECHO, trend troponin LDSSI with accuchecks continue eliquis 5mg BID restart home levothyroxine HOLD entresto for now due to hypotension PPI PDMP PDMP Reviewed: Not Reviewed Attestations Medical Necessity Statement*: will require 2 overnight stays for sepsis management Coding Level of Care Code 03652 Diagnoses Sepsis A41.9 Pneumonia J18.9 Acute exacerbation of chronic heart failure I50.9 Acute hypoxic respiratory failure J96.01 Elevated brain natriuretic peptide (BNP) level R79.89 Pacemaker Z95.0 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
[2024-06-18] MEDS: AZITHROMYCIN ADD-Vantage 500 MG in 0.9% NaCl ADD-Vantage 250 ML 250 MG IV (13:26)
[2024-06-18 13:52] LABS: Lactic Acid level (Lactate) 1.7 mmol/L (0.5-2.2)
--- NOTE | 2024-06-18 14:52 | USCV_ITS ---
Artis Boston Age: 84 Gender: M : 1940 Exam Date: 06/18/2024 17:38 Ordering Phys: Arturo Lou MD Technologist: Ludin Donis Exam Location: [facility] [place] Indication: heart failure BP: 105 / 54 HR: 60 Rhythm: Sinus Technical Quality: Adequate MEASUREMENTS (Male / Female) Normal Values 2D ECHO LV Diastolic Diameter PLAX 4.3 cm 4.2 - 5.9 / 3.9 - 5.3 cm IVS Diastolic Thickness 1.3 cm 0.6 - 1.0 / 0.6 - 0.9 cm IVS Systolic Thickness 1.4 cm LVPW Diastolic Thickness 1.6 cm 0.6 - 1.0 / 0.6 - 0.9 cm LVPW Systolic Thickness 2.5 cm LVOT Diameter 2.2 cm LV Ejection Fraction 2D Teich 32.1 % LV Ejection Fraction MOD 4C 46.8 % LV Ejection Fraction MOD 2C 46.1 % LV Ejection Fraction 2C AL 44.9 % LA Diameter 5.1 cm RA Systolic Volume 4C AL 56.4 ml RA Systolic Volume 4C MOD 56.3 ml LA Sys Volume AL 98.8 cm cubed LA Sys Volume Index AL 50.2 cm cubed/m squared Aorta at Sinotubular Diameter 3.0 cm M-MODE LA Ao Ratio MM 1.3 MV E Point Septal Separation 0.6 cm AV Cusp Separation MM 1.8 cm DOPPLER AV Peak Velocity 100.0 cm/s LVOT Peak Velocity 65.0 cm/s AV Area Cont Eq vti 2.5 cm squared AV Area Cont Eq pk 2.4 cm squared MV Peak Velocity 75.0 cm/s MV Area PHT 3.5 cm squared Mitral E to A Ratio 3.1 TV Peak Velocity 263.0 cm/s TR Peak Velocity 273.0 cm/s TR Peak Gradient 29.8 mmHg TR Mean Velocity 184.0 cm/s TR Mean Gradient 15.8 mmHg TR Velocity Time Integral 74.1 cm PV Peak Velocity 91.0 cm/s RV Ejection Time 0.3 s FINDINGS Left Ventricle Moderately increased left ventricular cavity size. Severely decreased left ventricular systolic function. Left ventricular ejection fraction is estimated at 35 %. Global left ventricular hypokinesis. Grade III/IV diastolic dysfunction (restrictive filling pattern), severely elevated filling pressures. Right Ventricle The right ventricle is normal in size and function. Right Atrium The right atrium is normal in size. Left Atrium Moderately increased left atrial size. Mitral Valve Moderately thickened mitral valve. No mitral valve stenosis. Trace mitral valve regurgitation. Aortic Valve Structurally normal aortic valve without significant sclerosis or stenosis. There is no aortic regurgitation. Tricuspid Valve Mild tricuspid valve regurgitation. Pulmonic Valve Mild pulmonary valve regurgitation. Pericardium Normal pericardium without effusion. Aorta Normal ascending aorta dimension. IVC Inferior vena cava not visualized. CONCLUSIONS Moderately increased left ventricular cavity size. Severely decreased left ventricular systolic function. Left ventricular ejection fraction is estimated at 35 %. Global left ventricular hypokinesis. Grade III/IV diastolic dysfunction (restrictive filling pattern), severely elevated filling pressures. Moderately increased left atrial size. Moderately thickened mitral valve. No mitral valve stenosis. Trace mitral valve regurgitation. There is no pericardial effusion. Inferior vena cava not visualized. Nicolas Baires MD (Electronically Signed) Final Date: 19 June 2024 15:57 S
[2024-06-18 16:43] LABS: Troponin 5 6HR 136.2 ng/L (0-15)
[2024-06-18 16:44] LABS: Troponin 5 6HR Delta 75.2 ng/L (0-12)
--- NOTE | 2024-06-18 16:54 | ECG_ITS ---
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
[2024-06-18 17:00] LABS: Glucose Point of Care 223 mg/dL (70-110)
[2024-06-18] MEDS: insulin lispro 100 unit/1 mL SUBCUT (18:22)
[2024-06-18] MEDS: FUROsemide 10 mg/mL SDV 2mL 20 MG IVP (18:23)
[2024-06-18] MEDS: apixaban 5 mg Tablet PO (18:23)
[2024-06-18 20:20] LABS: Glucose Point of Care 221 mg/dL (70-110)
[2024-06-19 03:09] VITALS: BP 116/60; PULSE 60; RESP 18; TEMP 36.8; O2SAT 93
--- NOTE | 2024-06-19 04:00 | XRR_ITS ---
PROCEDURE INFORMATION: Exam: XR Chest Exam date and time: 06/19/2024 6:33 AM Age: 84 years old Clinical indication: Other: Pneumonia f/u; Prior surgery; Surgery date: 6+ months; Surgery type: Cabg/pacer TECHNIQUE: Imaging protocol: Radiologic exam of the chest. Views: 1 view. COMPARISON: CR (CHEST, ) 06/18/2024 10:42 AM FINDINGS: Tubes, catheters and devices: Right chest ICD positioning is unchanged. Lungs: Multiple calcified granulomas within the right lung base. Reduced lung volumes. Negative for airspace consolidation. Pleural spaces: Unremarkable. No pleural effusion. No pneumothorax. Heart/Mediastinum: CABG. Cardiomegaly. Bones/joints: Bilateral shoulder arthroplasty is present. No acute thoracic fractures. XR/XR chest 1V [id number] IMPRESSION: No acute chest pathology identified.
[2024-06-19 05:07] LABS: Basophils % 0.3 %; Eosinophils # 0.1 10^3/uL (0.0-0.8); Eosinophils % 0.8 %; Hematocrit 37.6 % (37-53); Lymphocytes # 1.6 10^3/uL (0.8-4.8); Lymphocytes % 13.6 %; Mean Corpuscular HGB Conc 31.6 g/dL (30-55); Mean Corpuscular Hemoglobin 31.1 pg (27-33); Mean Corpuscular Volume 98.2 fl (82-101); Mean Platelet Volume 12.6 fL (7.4-10.4); Monocytes # 1.2 10^3/uL (0.2-0.9); Monocytes % 10.4 %; Neutrophils # 8.82 10^3/uL (1.8-7.7); Neutrophils % 74.5 %; Nucleated Red Blood Cells % 0 %; Platelet Count 158 10^3/cmm (157-399); Red Blood Count 3.83 10^6/uL (3.85-5.65); Red Cell Distribution Width 13.6 % (12.1-15.1); White Blood Count 11.83 10^3/uL (3.29-11.43)
[2024-06-19 05:21] LABS: INR 1.44 (0.8-1.2)
[2024-06-19 05:24] LABS: Alanine Aminotransferase 26 U/L (0-41); Albumin Level 3.2 g/dL (3.5-5.2); Alkaline Phosphatase 86 U/L (40-130); Anion Gap 12.9 (5-19); Aspartate Amino Transferase 40 U/L (0-40); Blood Urea Nitrogen 24 mg/dL (8-23); Calcium 8.8 mg/dL (8.5-10.5); Carbon Dioxide 24 mmol/L (22-29); Chloride 107 mmol/L (98-107); Creatinine Clr Calc Pharmacy 70.0278; Globulin 2.6 g/dL (1.3-4.6); Glucose 127 mg/dL (65-115); Magnesium 2.1 mg/dL (1.7-2.3); Osmolality Calculated 296 mOsm/kg (285-295); Phosphorus 2.5 mg/dL (2.5-4.5); Potassium 3.9 mmol/L (3.5-5.1); Sodium 140 mmol/L (136-145); Total Bilirubin 0.7 mg/dL (0.15-1.2); Total Protein 5.8 g/dL (6.6-8.7)
[2024-06-19 05:32] LABS: NT Pro B Type Natriuretic Pept 8051 pg/mL (0-450); Procalcitonin 6.08 ng/mL (0-0.5)
[2024-06-19 06:24] LABS: Glucose Point of Care 137 mg/dL (70-110)
[2024-06-19 08:00] VITALS: BP 128/68; PULSE 60; RESP 24; TEMP 37.1; O2SAT 93
[2024-06-19] MEDS: sacubitril/valsartan 24-26 mg Tablet 4 EACH PO (09:22)
[2024-06-19] MEDS: apixaban 5 mg Tablet PO ×2 (09:22→18:47)
[2024-06-19] MEDS: pantoprazole DR 40 mg Tablet PO (09:22)
--- NOTE | 2024-06-19 10:02 | P.PN_ITS ---
Subjective 2 Subjective: seen at bedside this AM sitting at 30 degree incline with spo2 94% on RA states he is feeling better today Vitals/I&O/Wt Last Vital Signs Temp 98.8 F 06/19/24 08:00 Pulse 60 06/19/24 08:00 Resp 24 H 06/19/24 08:00 BP 128/68 06/19/24 08:00 Pulse Ox 93 06/19/24 08:00 O2 Del Method Room Air 06/19/24 08:00 O2 Flow Rate 2 06/18/24 13:57 06/18/24 06/19/24 06/19/24 22:59 06:59 14:59 Intake Total 240 / 2490 360 / 360 Output Total 250 / 250 550 / 800 400 / 400 Balance -10 / 2240 -550 / 1690 -40 / -40 Weight last 48 hrs Weight 182 lb 3.2 oz Weight 183 lb 12.8 oz Weight 170 lb Physical Exam 2 Narrative: General: AOx3, no acute distress, well developed, well nourished, appears stated age. 2.5lmp CVD: RRR, normal S1 and S2, no M/R/G. 2+ pulse x 4 extremities, no JVD, no carotid bruit. Lungs: bilateral rhonci throughout lung field. mild crackles at base. no wheezing. Abdomen: NT, ND, soft, NABS. Extremities: FROM and 5/5 strength in BUE and BLE. no visible joint abnormalities on active and passive ROM. Neuro: CNII-XII grossly intact. No atrophy, weakness, tremors or clonus.? 2+ DTR, no sensory abnormalities. Skin:? no rash, vesicles, lesions. Lines: Peripheral IV in L forearm Sepsis: Is patient septic: Yes Focused sepsis exam performed: Yes Date exam was performed: 06/18/24 Time exam was performed: 14:29 Data 06/19/24 04:31 06/19/24 04:31 Micro: Microbiology 06/18/24 10:44 Blood Culture - Preliminary Blood SPECIMEN COLLECTED 06/18/24 10:42 Blood Culture - Preliminary Blood SPECIMEN COLLECTED A&P Assessment and plan (1) Sepsis: (2) Pneumonia: (3) Acute exacerbation of chronic heart failure: (4) Acute hypoxic respiratory failure: (5) Elevated brain natriuretic peptide (BNP) level: (6) Pacemaker: (7) Diabetes: Qualifiers: Diabetes mellitus type: drug or chemical induced Diabetes mellitus fpc insulin use: without fpc use Diabetes mellitus complication status: without complication Qualified Code(s): 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 likely pneumonia -+ve rhino/entero virus hypoxemic respiratory failure -resolving Hypotension HfrEF (EF 45%) exacerbation -worsening DM2 afib with pacemaker hypothyroidism P: -eliquis 5mg BID -BNP is 8051, increase from 4428yday -start IV lasix 40mg BID, KCL 20meq BID -continue Abx for CAP coverage: rocephin + azithro -procal +ve, WBC improving. 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
[2024-06-19] MEDS: potassium chloride ER 20 mEq Tablet PO ×2 (11:19→18:47)
[2024-06-19] MEDS: FUROsemide 10 mg/mL SDV 4mL 40 MG IVP ×2 (11:19→22:09)
[2024-06-19] MEDS: levothyroxine 137 mcg Tablet PO (11:20)
[2024-06-19] MEDS: cefTRIAXone 1,000 mg SDV 1000 MG IVP (11:20)
[2024-06-19 11:37] LABS: Glucose Point of Care 229 mg/dL (70-110)
[2024-06-19 12:00] VITALS: BP 142/78; PULSE 62; RESP 16; TEMP 36.7; O2SAT 93
[2024-06-19] MEDS: insulin lispro 100 unit/1 mL SUBCUT ×2 (12:25→18:47)
[2024-06-19] MEDS: azithromycin 250 mg Tablet 500 MG PO (15:57)
[2024-06-19 16:00] VITALS: BP 124/68; PULSE 61; RESP 16; TEMP 36.5; O2SAT 95
[2024-06-19 17:09] LABS: Glucose Point of Care 151 mg/dL (70-110)
[2024-06-19 19:59] VITALS: BP 103/61; PULSE 60; RESP 24; TEMP 36.8; O2SAT 90
[2024-06-19 20:50] LABS: Glucose Point of Care 150 mg/dL (70-110)
[2024-06-19 22:00] VITALS: PULSE 61
[2024-06-20] VITALS (7 sets, daily range): BP systolic 90–133; BP diastolic 51–70; PULSE 60–66; RESP 16–27; TEMP 36.3–36.9; O2SAT 90–96
[2024-06-20 03:42] LABS: Basophils % 0.3 %; Eosinophils # 0.2 10^3/uL (0.0-0.8); Eosinophils % 1.5 %; Hematocrit 40.6 % (37-53); Lymphocytes # 2.1 10^3/uL (0.8-4.8); Lymphocytes % 18.6 %; Mean Corpuscular HGB Conc 32.8 g/dL (30-55); Mean Corpuscular Hemoglobin 31.7 pg (27-33); Mean Corpuscular Volume 96.7 fl (82-101); Mean Platelet Volume 12.3 fL (7.4-10.4); Monocytes # 1.1 10^3/uL (0.2-0.9); Monocytes % 9.9 %; Neutrophils # 7.67 10^3/uL (1.8-7.7); Neutrophils % 69.3 %; Nucleated Red Blood Cells % 0 %; Platelet Count 176 10^3/cmm (157-399); Red Cell Distribution Width 13.5 % (12.1-15.1); White Blood Count 11.06 10^3/uL (3.29-11.43)
[2024-06-20 04:06] LABS: Alanine Aminotransferase 25 U/L (0-41); Albumin Level 3.2 g/dL (3.5-5.2); Alkaline Phosphatase 80 U/L (40-130); Anion Gap 15.6 (5-19); Aspartate Amino Transferase 38 U/L (0-40); Blood Urea Nitrogen 24 mg/dL (8-23); Carbon Dioxide 25 mmol/L (22-29); Chloride 102 mmol/L (98-107); Creatinine Clr Calc Pharmacy 70.0278; Globulin 2.9 g/dL (1.3-4.6); Glucose 172 mg/dL (65-115); Osmolality Calculated 296 mOsm/kg (285-295); Potassium 3.6 mmol/L (3.5-5.1); Sodium 139 mmol/L (136-145); Total Bilirubin 0.5 mg/dL (0.15-1.2); Total Protein 6.1 g/dL (6.6-8.7)
--- NOTE | 2024-06-20 05:28 | PM.PN ---
Subjective Subjective: 84 year old male with hx of HFrEF, CAD with hx of CABG on eliquis, afib with pacemaker, DM2, hypothyroidism, LLE severe PAD, admitted on 06/18 s/p fall, cough and generalized weakness at home. He was hypotensive and hypoxic on admission, , had leukocytosis, elevated BNP. CXR showed no consolidation but old healed granulomas. Resp panel + rhino/enterovirus. Currently on treatment with ceftriaxone and azithromycin. On diuresis with iv lasix for CHF exacerbation. LVEF 35% , global ventricular hypokinesia, gr 3 diastolic dysfunction . EF reduced compared to echo from 10/2022, however per review of stress test from 05/2023, LVEF estimated at 37% with areas of myocardial scarring and findings sugestive of non ischemic cardiomyopathy. Currently net negative 1.5L since admission Medications: Reviewed: Yes Vitals/I&O/Wt Last Vital Signs Temp 97.7 F 06/20/24 04:00 Pulse 61 06/20/24 04:00 Resp 27 H 06/20/24 00:00 BP 113/63 06/20/24 04:00 Pulse Ox 96 06/20/24 04:00 O2 Del Method Nasal Cannula 06/20/24 04:00 O2 Flow Rate 2 06/18/24 13:57 06/19/24 06/19/24 06/20/24 14:59 22:59 06:59 Intake Total 720 / 720 360 / 1080 Output Total 1950 / 1950 1075 / 3025 1250 / 4275 Balance -1230 / -1230 -715 / -1945 -1250 / -3195 Weight last 48 hrs Weight 82.645 kg Weight 83.37 kg Weight 77.111 kg Physical Exam Narrative: General: No acute distress, AO x3 HEENT: PERRLA, pupils bilaterally equal and reactive, pallors not present Chest: Normal vesicular breath sounds, no added sounds, equal good air entry bilaterally CVS: S1-S2 regular, no murmurs, no tachycardia, no gallops, no rubs Abdomen: Soft, nontender, no organomegaly, bowel sounds present Neuro: No focal deficits, no facial deformity, AO x3, power 5/5 in all limbs Data 06/20/24 03:20 06/20/24 03:20 Micro: Microbiology 06/18/24 10:44 Blood Culture - Preliminary Blood NEGATIVE TO DATE 06/18/24 10:42 Blood Culture - Preliminary Blood NEGATIVE TO DATE A&P Assessment and plan (1) Sepsis: (2) Pneumonia: (3) Acute exacerbation of chronic heart failure: (4) Acute hypoxic respiratory failure: (5) Elevated brain natriuretic peptide (BNP) level: (6) Pacemaker: (7) Diabetes: Qualifiers: Diabetes mellitus complication status: without complication Diabetes mellitus detention insulin use: without long term care phlebotomist use Diabetes mellitus type: drug or chemical induced Qualified Code(s): 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 likely pneumonia -+ve rhino/entero virus hypoxemic respiratory failure -resolving Hypotension HfrEF (EF 45%) exacerbation -worsening DM2 afib with pacemaker hypothyroidism P: -eliquis 5mg BID -BNP is 8051, increase from 4428yday -start IV lasix 40mg BID, KCL 20meq BID -continue Abx for CAP coverage: rocephin + azithro -procal +ve, WBC improving. Lactate WNL -pending new ECHO -LDSSI with accuchecks -restart entresto -PPI June 20, 2024 Net -1.5 L. Coughing during the exam. Intermittently wheezing present. Add albuterol as needed. No history of COPD or asthma. Continue IV diuresis with Lasix 40 mg IV every 12 hours. Closely monitor kidney function. Hold Entresto given soft blood pressure. Acute decompensated systolic heart failure is precipitated by acute viral illness with entero-/rhinovirus. Consult cardiology given acutely decompensated heart failure, ejection fraction currently dropped compared to echocardiogram from October 2022. PDMP PDMP Reviewed: Not Reviewed Attestations Medical Necessity Statement*: Continued need for IV diuresis. Closely monitor kidney function. Recheck a.m. 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
[2024-06-20 06:37] LABS: Glucose Point of Care 152 mg/dL (70-110)
[2024-06-20] MEDS: sacubitril/valsartan 24-26 mg Tablet 4 EACH PO (08:27)
[2024-06-20] MEDS: pantoprazole DR 40 mg Tablet PO (08:27)
[2024-06-20] MEDS: potassium chloride ER 20 mEq Tablet PO (08:27)
[2024-06-20] MEDS: azithromycin 250 mg Tablet 500 MG PO (08:27)
[2024-06-20] MEDS: insulin lispro 100 unit/1 mL SUBCUT ×3 (08:27→17:27)
[2024-06-20] MEDS: levothyroxine 137 mcg Tablet PO (08:27)
[2024-06-20] MEDS: apixaban 5 mg Tablet PO ×2 (08:27→17:27)
--- NOTE | 2024-06-20 09:35 | PC.CHAP ---
Pastoral Care Encounter/Spiritual Assessment Type of Contact [] Declined admitting interviewer visit [] Patient/Family/Request visit [] Outpatient visit [] Follow-up visit [] Physician referral [] Code/Alert [x] Routine visit [] Staff referral [] Actively dying [] Patient sleeping [] Family support [] [] Out of room [] Palliative care [] [] Receiving care in room [] Pre-surgical visit [] Trauma [] Long length of stay [] ICU visit [] Other: Relational/Emotional Strength [] Patient feels connected with others/family/visitors/staff [] Distress [] Loneliness/isolation [] Abandonment Spirituality of Patient [] Person of [place] [] Attends Episcopal of their [place] [] Believes in Prayer [] Reads Bible or Restorationist materials [] There are Spiritual issues to be addressed Fractionation Supervisor Interventions [] Prayer [] Active listening [] Non-anxious presence [] Spiritual/emotional support [] Crisis/trauma care [] Spiritual counseling [] Bereavement support [] Provided bereavement packet [] Provided Bible/devotional materials [] Provided toy/stuffed animal, coloring book to patient or family member [] Provided Communion [] Anointing/Bayard [] Salvation [] Completed spiritual assessment [] Other: Impact on Illness or Injury [] Angry [] Fearful [] Anxious [] Often cries [] Exhaustion [] Unable to work [] Unable to attend caodaism [] Unable to walk/stand [] Unable to read [] Unable to drive [] Unable to eat/drink [] Unable to sleep [] Unable to be with family [] Patient intubated [] Other: Summary precaution Time spent with patient
[2024-06-20] MEDS: FUROsemide 10 mg/mL SDV 4mL 40 MG IVP (10:33)
[2024-06-20] MEDS: cefTRIAXone 1,000 mg SDV 1000 MG IVP (10:33)
[2024-06-20 12:02] LABS: Glucose Point of Care 184 mg/dL (70-110)
--- NOTE | 2024-06-20 12:15 | PC.SOCIAL ---
IMM Update pg 2 of IMM Updated and reviewed w/ patient and his . Copy provided and copy dated, initialed and placed in chart.
--- NOTE | 2024-06-20 14:53 | P.CONIM_ITS ---
<Statement entered by Nicolas Baires MD - 06/20/24 20:29> Patient was evaluated and cared for in conjunction with an advanced practice practitioner. I personally examined the patient and reviewed the chart and all pertinent data including imaging, telemetry, and laboratory results. I discussed the patient in detail with the advanced practice practitioner. Please see their note for complete H&P testing result and agreed upon plan of care for the patient. Patient denies any complain he thinks he is feeling much better blood pressure on the softer side GENERAL: Patient is alert, awake and oriented x3. HEART: Regular S1 and S2. No murmur, rub or gallop. LUNGS: Decreased breath sound bilaterally. CENTRAL NERVOUS SYSTEM: Grossly nonfocal. EXTREMITIES: Lower extremities with out edema bilaterally. Assessment and plan CHF systolic type well compensated Atrial fibrillation rate Respiratory infection, treatment as per medicine Continue current regimen patient appears to be stable from a cardiovascular perspective Providers/Reason For Consult 2 Consulting Physician/Specialty*: Nicolas Baires MD Reason for Consult*: Systolic heart failure Requesting Physician: Dr. Diaz Attending Physician: Stephanie Diaz MD Primary Care Provider: Gilbert Dempsey DO History of Present Illness History of Present Illness Artis Boston is a 84 year old male who came into the ER a couple days ago with complaints of cough x 2 to 3 days with a sore throat. Reports shortness of breath on exertion. He denies any recent chest pain or pressure. He does have a history of heart failure with reduced ejection fraction at 45% seen in 2022. He has a history of CABG. He has a history of pacemaker placement, diabetes type 2, chronically anticoagulated with Eliquis. He states the main reason why he came in was due to a fall at home. Along with that he does have chronic shortness of breath on exertion. Denies any recent swelling or orthopnea. On exam he seems well compensated. His last heart cath was in 2020 that showed severe [place] coronary disease with all grafts patent and an EF of 45%. He has a HAJI to LAD, saphenous vein graft to first OM, and a small severe PDA that is distal. An echo was done in the hospital that showed ejection fraction at 35% with global left ventricular hypokinesis grade 3 out of 4 diastolic dysfunction. He takes Entresto and jardiance for heart failure. Current bp is soft at 96/55 with a pulse of 60. He is currently getting lasix 40 mg IV BID. He is -1885 L over 24 hours. Currently on oxygen at 2L nasal cannula. Creatinine normal at 0.9. Probnp was 8051. Troponin base 61-89.5-136.2 positive delta. Currently denies any chest pain or shortness of breath. Review of Systems 2 Narrative: Consitutional: denies fever, chills, body aches, or changes in appetite, denies abnormal weight loss Eyes: Denies changes in vision Card: Denies chest pain, palpitations, irregular heart rhythm, edema, syncope,orthopnea, leg pain with exertion Resp: reports chronic shortness of breath on exertion relieved with rest, denies hemoptysis, reports cough GI: denies abdominal pain, denies nausea or voimting, denies blood in stool : denies blood in urine, denies dysuria Musc: Denies extremity pain, denies limited range of motion or recent injury Skin: Denies rash, lesions, or wounds, denies changes to skin color Neuro: Denies nubmness in extremities, h/a, s/s of stroke Khai: Denies easy bruiding/bleeding Medications/Allergies Home Medications ?Medication ?Instructions ?Recorded ?Confirmed ?Last Taken ?Type cholecalciferol (vitamin D3) 50 50 mcg PO DAILY 06/18/24 06/18/24 History mcg (2,000 unit) capsule folic acid 400 mcg tablet 0.4 mg PO DAILY 03/06/2106/18/24 History coenzyme Q10 100 mg capsule 100 mg PO DAILY 02/05/24 0 06/18/24 06/18/24 History (CoQ-10) levothyroxine 137 mcg tablet 137 mcg PO DAILY 02/05/24 06/18/24 06/18/24 History multivitamin 1 tab PO QAM 02/05/2406/18/24 History sacubitril 97 mg-valsartan 103 mg 1 tab PO DAILY 02/0406/18/24 06/18/24 History tablet (Entresto) zinc acetate 50 mg (zinc) capsule 100 mg PO DAILY 01/2306/18/24 06/18/24 History soft cervical collar #1 ea 05/03/24 06/18/24 Unkn own Rx apixaban 5 mg tablet (Eliquis) See Rx Instructions .Ro coco 05/19/24 06/18/24 06/18/24 07:00 Rx .COMPLEX #180 tabs empagliflozin 25 mg tablet 25 mg PO DAILY DM 06/18/24 06/18/24 06/18/24 History (Jardiance) Allergies Allergy/AdvReac Type Severity Reaction Status Date / Time atorvastatin (From Lipitor) Allergy Unknown Unknown Verified 06/07/24 14:29 metformin (From Glucophage) AdvReac Severe ADR-Diarrhe Verified 06/07/24 14:29 a Current Medications Generic Name Dose Route Start Last Admin Trade Name Freq PRN Reason Stop Dose Admin Apixaban 5 mg 06/18/24 18:00 06/20/24 08:27 Apixaban 5 Mg Tablet PO 5 mg BID TOAN Administration Azithromycin 500 mg 06/20/24 09:00 06/20/24 08:27 Azithromycin 250 Mg Tablet PO 06/24/24 08:59 500 mg DAILY TOAN Administration Protocol Ceftriaxone Sodium 1,000 mg 06/19/24 11:00 06/20/24 10:33 Ceftriaxone 1,000 Mg Sdv IVP 1,000 mg Q24H TOAN Administration Protocol Insulin Human Lispro 0 unit 06/18/24 18:00 06/20/24 12:36 Insulin Lispro 100 Unit/1 Ml SUBCUT 4 unit TIDWM TOAN Administration Protocol Levothyroxine Sodium 137 mcg 06/19/24 09:00 06/20/24 08:27 Levothyroxine 137 Mcg Tablet PO 137 mcg DAILY TOAN Administration Pantoprazole Sodium 40 mg 06/19/24 09:00 06/20/24 08:[address] 40 Mg Tablet PO 40 mg DAILY TOAN Administration Potassium Chloride 20 meq 06/19/24 10:06 06/20/24 08:27 Potassium Chloride Er 20 Meq Tablet PO 20 meq BID TOAN Administration Sacubitril/Valsartan 4 each 06/19/24 09:00 06/20/24 08:27 Sacubitril/Valsartan 24-26 Mg Tablet PO 4 each DAILY TOAN Administration PFSH Acute 2 PFSH: Medical History Enrolled in chronic care management please do not remove from active HZV (herpes zoster virus) post herpetic neuralgia Pacemaker Anticoagulant long-term use ASHD (arteriosclerotic heart disease) Diabetes Atrial fibrillation A. fib with slow ventricular rate Dyslipidemia HTN (hypertension) CHF (congestive heart failure) Surgical History S/P carpal tunnel release S/P knee surgery S/P shoulder replacement Previous back surgery S/P cholecystectomy S/P appendectomy S/P CABG (coronary artery bypass graft) Family History Sister Cancer Mother Diabetes Denies family history of CAD (coronary artery disease) Clotting disorder Dementia Chronic kidney disease (CKD) Suicide Anesthesia complication Bleeding disorder Lung disease Stroke Social History Smoking and tobacco/nicotine status: never used tobacco/nicotine Second hand smoke exposure: No Alcohol intake: never Substance/Drug Use: never Adopted: No Caregiver/support person: No Lives independently: Yes Household members: spouse Housing: House Marital status: Current occupational status: retired Do you think of yourself as: Straight/Heterosexual Current gender identity: Female Vitals/I&O/Wt Last Vital Signs Temp 97.7 F 06/20/24 12:00 Pulse 60 06/20/24 12:00 Resp 18 06/20/24 12:00 BP 96/55 06/20/24 12:00 Pulse Ox 90 06/20/24 12:00 O2 Del Method Nasal Cannula 06/20/24 12:00 O2 Flow Rate 2 06/20/24 12:00 06/19/24 06/20/24 06/20/24 22:59 06:59 14:59 Intake Total 360 / 1080 1080 / 1080 Output Total 1075 / 3025 1250 / 4275 1000 / 1000 Balance -715 / -1945 -1250 / -3195 80 / 80 Weight last 48 hrs Weight 170 lb 12.8 oz Weight 170 lb 12.8 oz Weight 182 lb 3.2 oz Weight 183 lb 12.8 oz Physical Exam 2 Narrative: General: No apparent distress, healthy appearing, well nourished HENMT: normoceophalic Muskuloskeletal: Full ROM Respiratory: Normal respiratory effort, clear to auscultation bilaterally throughout all lung mcknight, no use of accessory muscles Cardio: No JVD, regular rate, regular rhythm, S1 S2 normal, no murmurs, peripheral pulses 2+ radial palpated bilaterally GI: Normal to inspection, nondistended Extremities: Full ROM, normal, normal capillary refill, no cyanosis or edema Neuro: Alert and oriented x4, no focal motor deficits Psych: Affect normal, denies suicidal ideation, mental status grossly normal Skin: No rashes or lesions noted, no wounds Data 06/20/24 03:20 06/20/24 03:20 Micro: Microbiology 06/18/24 10:44 Blood Culture - Preliminary Blood NEGATIVE TO DATE 06/18/24 10:42 Blood Culture - Preliminary Blood NEGATIVE TO DATE A&P Assessment and plan (1) CHF (congestive heart failure): Qualifiers: Heart failure type: systolic Heart failure chronicity: chronic Q ualified Code(s): I50.22 - Chronic systolic (congestive) heart failure (2) HTN (hypertension): Qualifiers: Hypertension type: essential hypertension Qualified Code(s): I10 - Essential (primary) hypertension (3) Dyslipidemia: (4) Atrial fibrillation: Qualifiers: Atrial fibrillation type: unspecified Qualified Code(s): I48.91 - Unspecified atrial fibrillation (5) Pacemaker: (6) Elevated brain natriuretic peptide (BNP) level: Plan Patient appears well compensated from heart failure standpoint. At this time would continue Entresto, Eliquis 5 mg twice daily for stroke prophylaxis, Lasix 40 mg IV push twice daily. May consider transitioning to oral diuretics tomorrow if patient continues to do well. At this time he denies any recent chest pain. He did have a drop in his EF from 45 to 35%. His stress test has been about a year ago showing predominantly myocardial scarring in the RCA. Further discussion will be made about potentially getting another stress test versus left heart cath. Will discuss further with Dr. Baires. At this time, will continue current care. Thank you Dr. Diaz, for allowing us to care for this very pleasant 84 year old patient. PDMP PDMP Reviewed: Not Reviewed Coding Level of Care Code Acute Code for Chg Fwd Diagnoses Chronic systolic congestive heart failure I50.22 Heart failure type: systolic Heart failure chronicity: chronic Essential hypertension I10 Hypertension type: essential hypertension Dyslipidemia E78.5 Atrial fibrillation, unspecified type I48.91 Atrial fibrillation type: unspecified Pacemaker Z95.0 Elevated brain natriuretic peptide (BNP) level R79.89
[2024-06-20 17:38] LABS: Glucose Point of Care 160 mg/dL (70-110)
[2024-06-20 20:47] LABS: Glucose Point of Care 218 mg/dL (70-110)
[2024-06-21] VITALS (10 sets, daily range): BP systolic 93–123; BP diastolic 51–66; PULSE 60–62; RESP 16–28; TEMP 36.3–36.9; O2SAT 93–96
[2024-06-21 03:09] LABS: Basophils % 0.4 %; Eosinophils # 0.1 10^3/uL (0.0-0.8); Eosinophils % 1.8 %; Hematocrit 39.6 % (37-53); Lymphocytes # 2.1 10^3/uL (0.8-4.8); Lymphocytes % 26.2 %; Mean Corpuscular HGB Conc 32.8 g/dL (30-55); Mean Corpuscular Hemoglobin 31.2 pg (27-33); Mean Platelet Volume 12.2 fL (7.4-10.4); Monocytes # 0.8 10^3/uL (0.2-0.9); Monocytes % 9.9 %; Neutrophils # 4.78 10^3/uL (1.8-7.7); Neutrophils % 61.2 %; Nucleated Red Blood Cells % 0 %; Platelet Count 198 10^3/cmm (157-399); Red Blood Count 4.17 10^6/uL (3.85-5.65); Red Cell Distribution Width 13.2 % (12.1-15.1); White Blood Count 7.81 10^3/uL (3.29-11.43)
[2024-06-21 03:39] LABS: Alanine Aminotransferase 20 U/L (0-41); Alkaline Phosphatase 79 U/L (40-130); Anion Gap 13.4 (5-19); Aspartate Amino Transferase 26 U/L (0-40); Blood Urea Nitrogen 25 mg/dL (8-23); Calcium 8.7 mg/dL (8.5-10.5); Carbon Dioxide 30 mmol/L (22-29); Chloride 99 mmol/L (98-107); Creatinine Clr Calc Pharmacy 76.6986; Glucose 177 mg/dL (65-115); Magnesium 1.8 mg/dL (1.7-2.3); Osmolality Calculated 297 mOsm/kg (285-295); Potassium 3.4 mmol/L (3.5-5.1); Sodium 139 mmol/L (136-145); Total Bilirubin 0.6 mg/dL (0.15-1.2)
[2024-06-21 07:30] LABS: Glucose Point of Care 216 mg/dL (70-110)
[2024-06-21] MEDS: pantoprazole DR 40 mg Tablet PO (07:50)
[2024-06-21] MEDS: levothyroxine 137 mcg Tablet PO (07:50)
[2024-06-21] MEDS: azithromycin 250 mg Tablet 500 MG PO (07:50)
[2024-06-21] MEDS: apixaban 5 mg Tablet PO ×2 (07:51→16:57)
[2024-06-21] MEDS: FUROsemide 10 mg/mL SDV 4mL 40 MG IVP (07:51)
[2024-06-21] MEDS: insulin lispro 100 unit/1 mL SUBCUT ×3 (07:51→16:58)
--- NOTE | 2024-06-21 10:13 | PM.PN ---
Subjective Subjective: Patient states that his breathing feels better today. He is on room air while sitting up in bed. He is able to ambulate a short distance to the bedside commode with the assistance of a walker. Urine output of 1800 cc. Net -1200 cc last 24 hours. Medications: Reviewed: Yes Vitals/I&O/Wt Last Vital Signs Temp 97.4 F L 06/21/24 08:00 Pulse 62 06/21/24 08:00 Resp 28 H 06/21/24 08:00 BP 123/64 06/21/24 08:00 Pulse Ox 95 06/21/24 08:00 O2 Del Method Room Air 06/21/24 08:00 O2 Flow Rate 2 06/21/24 07:58 06/20/24 06/21/24 06/21/24 22:59 06:59 14:59 Intake Total 240 / 1320 120 / 120 Output Total 900 / 1900 575 / 2475 200 / 200 Balance -660 / -580 -575 / -1155 -80 / -80 Weight last 48 hrs Weight 79.469 kg Weight 79.469 kg Weight 77.474 kg Weight 77.474 kg Physical Exam Narrative: General: No acute distress, AO x3 HEENT: PERRLA, pupils bilaterally equal and reactive, pallors not present Chest: Normal vesicular breath sounds, no added sounds, equal good air entry bilaterally CVS: S1-S2 regular, no murmurs, no tachycardia, no gallops, no rubs Abdomen: Soft, nontender, no organomegaly, bowel sounds present Neuro: No focal deficits, no facial deformity, AO x3, power 5/5 in all limbs Data 06/21/24 02:30 06/21/24 02:30 A&P Assessment and plan (1) Sepsis: (2) Pneumonia: (3) Acute exacerbation of chronic heart failure: (4) Acute hypoxic respiratory failure: (5) Elevated brain natriuretic peptide (BNP) level: (6) Pacemaker: (7) Diabetes: Qualifiers: Diabetes mellitus type: drug or chemical induced Diabetes mellitus long term acute care registered nurse insulin use: without long term acute care registered nurse use Diabetes mellitus complication status: without complication Qualified Code(s): 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 likely pneumonia -+ve rhino/entero virus hypoxemic respiratory failure -resolving Hypotension HfrEF (EF 45%) exacerbation -worsening DM2 afib with pacemaker hypothyroidism P: -eliquis 5mg BID -BNP is 8051, increase from 4428yday -start IV lasix 40mg BID, KCL 20meq BID -continue Abx for CAP coverage: rocephin + azithro -procal +ve, WBC improving. Lactate WNL -pending new ECHO -LDSSI with accuchecks -restart entresto -PPI June 20, 2024 Net -1.5 L. Coughing during the exam. Intermittently wheezing present. Add albuterol as needed. No history of COPD or asthma. Continue IV diuresis with Lasix 40 mg IV every 12 hours. Closely monitor kidney function. Hold Entresto given soft blood pressure. Acute decompensated systolic heart failure is precipitated by acute viral illness with entero-/rhinovirus. Consult cardiology given acutely decompensated heart failure, ejection fraction currently dropped compared to echocardiogram from October 2022. June 21, 2024 Net -2.7 L. States that breathing is feeling improved today. Off oxygen while at rest. Encourage ambulation today, reassess oxygen requirements with exertion,. Blood pressure is better with holding Entresto today. Continue Lasix, however will transition IV every 12 Lasix to oral Lasix 40 mg twice daily. If continues to diurese well and kidney functions remain stable, may be able to be discharged in the upcoming 24 hours. Appreciate cardiology recommendations. No additional workup recommended at this time. PDMP PDMP Reviewed: Not Reviewed Attestations Medical Necessity Statement*: Transition IV to oral diuresis today. Closely monitor kidney function and urine output with making this change. 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
[2024-06-21] MEDS: cefTRIAXone 1,000 mg SDV 1000 MG IVP (11:54)
[2024-06-21] MEDS: potassium chloride oral liq 20 mEq/15 mL UDC 40 MEQ PO (11:54)
[2024-06-21 12:19] LABS: Glucose Point of Care 207 mg/dL (70-110)
--- NOTE | 2024-06-21 14:09 | P.PN_ITS ---
<Statement entered by Nciolas Baires MD - 06/26/24 11:28> Patient was evaluated and cared for in conjunction with an advanced practice practitioner. I personally examined the patient and reviewed the chart and all pertinent data including imaging, telemetry, and laboratory results. I discussed the patient in detail with the advanced practice practitioner. Please see their note for complete H&P testing result and agreed upon plan of care for the patient. Subjective 2 Subjective: Patient doing well. Denies any shortness of breath. He is -1955 over 24 hours. Blood pressure stable at 123/64. Overall he is well compensated. Vitals/I&O/Wt Last Vital Signs Temp 97.6 F 06/21/24 11:46 Pulse 60 06/21/24 14:00 Resp 28 H 06/21/24 11:46 BP 93/51 06/21/24 11:46 Pulse Ox 94 06/21/24 11:46 O2 Del Method Room Air 06/21/24 11:46 O2 Flow Rate 2 06/21/24 07:58 06/20/24 06/21/24 06/21/24 22:59 06:59 14:59 Intake Total 240 / 1320 240 / 240 Output Total 900 / 1900 575 / 2475 850 / 850 Balance -660 / -580 -575 / -1155 -610 / -610 Weight last 48 hrs Weight 175 lb 3.2 oz Weight 175 lb 3.2 oz Weight 170 lb 12.8 oz Weight 170 lb 12.8 oz Physical Exam 2 Narrative: General: No apparent distress, healthy appearing, well nourished HENMT: normoceophalic Muskuloskeletal: Full ROM Respiratory: Normal respiratory effort, clear to auscultation bilaterally throughout all lung mcknight, no use of accessory muscles Cardio: No JVD, regular rate, regular rhythm, S1 S2 normal, no murmurs, peripheral pulses 2+ radial palpated bilaterally GI: Normal to inspection, nondistended Extremities: Full ROM, normal, normal capillary refill, no cyanosis or edema Neuro: Alert and oriented x4, no focal motor deficits Psych: Affect normal, denies suicidal ideation, mental status grossly normal Skin: No rashes or lesions noted, no wounds Data 06/21/24 02:30 06/21/24 02:30 A&P Assessment and plan (1) CHF (congestive heart failure): Qualifiers: Heart failure type: systolic Heart failure chronicity: chronic Q ualified Code(s): I50.22 - Chronic systolic (congestive) heart failure (2) HTN (hypertension): Qualifiers: Hypertension type: essential hypertension Qualified Code(s): I10 - Essential (primary) hypertension (3) Dyslipidemia: (4) Atrial fibrillation: Qualifiers: Atrial fibrillation type: unspecified Qualified Code(s): I48.91 - Unspecified atrial fibrillation (5) Pacemaker: (6) Elevated brain natriuretic peptide (BNP) level: Plan Patient appears well compensated from heart failure standpoint. At this time would continue Entresto, Eliquis 5 mg twice daily for stroke prophylaxis, Lasix has been converted to PO, and patient is doing well. At this time he denies any recent chest pain. He did have a drop in his EF from 45 to 35%. His stress test has been about a year ago showing predominantly myocardial scarring in the RCA. Recommendation at this time is to possibly consider stress test as an outpatient. Patient's blood pressure is low, so Entresto and beta ciara has been on hold. PDMP PDMP Reviewed: Not Reviewed Attestations 2 Medical Necessity Statement*: Deferred to primary Coding Level of Care Code Acute Code for [facility] Fwd Diagnoses Chronic systolic congestive heart failure I50.22 Heart failure type: systolic Heart failure chronicity: chronic Essential hypertension I10 Hypertension type: essential hypertension Dyslipidemia E78.5 Atrial fibrillation, unspecified type I48.91 Atrial fibrillation type: unspecified Pacemaker Z95.0 Elevated brain natriuretic peptide (BNP) level R79.89
--- NOTE | 2024-06-21 15:14 | PC.NURSE ---
This nurse took report from DIAMOND Silveira in CSU at 1512.
--- NOTE | 2024-06-21 15:32 | PC.NURSE ---
This nurse assumed care of pt at this time.
--- NOTE | 2024-06-21 16:11 | PC.NURSE ---
Patient transferred to [facility] room 262. Report called to DIAMOND Ospina
[2024-06-21 16:33] LABS: Glucose Point of Care 196 mg/dL (70-110)
[2024-06-21] MEDS: FUROsemide 40 mg Tablet PO (16:57)
[2024-06-21 20:45] LABS: Glucose Point of Care 232 mg/dL (70-110)
[2024-06-22 05:59] VITALS: BP 97/64; PULSE 76; RESP 18; TEMP 36.8; O2SAT 94
[2024-06-22 06:03] LABS: Basophils % 0.4 %; Eosinophils # 0.2 10^3/uL (0.0-0.8); Eosinophils % 1.9 %; Lymphocytes # 2.1 10^3/uL (0.8-4.8); Lymphocytes % 26.1 %; Mean Corpuscular HGB Conc 32.7 g/dL (30-55); Mean Corpuscular Hemoglobin 31.3 pg (27-33); Mean Corpuscular Volume 95.8 fl (82-101); Mean Platelet Volume 11.6 fL (7.4-10.4); Monocytes # 0.8 10^3/uL (0.2-0.9); Monocytes % 9.7 %; Neutrophils % 61.3 %; Nucleated Red Blood Cells % 0 %; Platelet Count 210 10^3/cmm (157-399); Red Blood Count 4.28 10^6/uL (3.85-5.65); Red Cell Distribution Width 13.1 % (12.1-15.1); White Blood Count 7.84 10^3/uL (3.29-11.43)
[2024-06-22 06:31] LABS: Alanine Aminotransferase 17 U/L (0-41); Albumin Level 3.2 g/dL (3.5-5.2); Alkaline Phosphatase 75 U/L (40-130); Anion Gap 12.7 (5-19); Aspartate Amino Transferase 18 U/L (0-40); Blood Urea Nitrogen 28 mg/dL (8-23); Calcium 9.2 mg/dL (8.5-10.5); Carbon Dioxide 29 mmol/L (22-29); Chloride 100 mmol/L (98-107); Creatinine Clr Calc Pharmacy 77.4884; Globulin 2.9 g/dL (1.3-4.6); Glucose 239 mg/dL (65-115); Osmolality Calculated 299 mOsm/kg (285-295); Potassium 3.7 mmol/L (3.5-5.1); Sodium 138 mmol/L (136-145); Total Bilirubin 0.6 mg/dL (0.15-1.2); Total Protein 6.1 g/dL (6.6-8.7)
[2024-06-22 06:47] LABS: Glucose Point of Care 222 mg/dL (70-110)
[2024-06-22 07:47] VITALS: BP 120/71; PULSE 60; RESP 18; TEMP 36.6; O2SAT 93
[2024-06-22 08:24] VITALS: PULSE 74; RESP 16; O2SAT 93
[2024-06-22] MEDS: insulin lispro 100 unit/1 mL SUBCUT ×2 (09:26→11:51)
[2024-06-22] MEDS: FUROsemide 40 mg Tablet PO (09:26)
[2024-06-22] MEDS: pantoprazole DR 40 mg Tablet PO (09:26)
[2024-06-22] MEDS: levothyroxine 137 mcg Tablet PO (09:26)
[2024-06-22] MEDS: apixaban 5 mg Tablet PO (09:26)
[2024-06-22] MEDS: azithromycin 250 mg Tablet 500 MG PO (09:26)
[2024-06-22 11:46] LABS: Glucose Point of Care 207 mg/dL (70-110)
[2024-06-22] MEDS: cefTRIAXone 1,000 mg SDV 1000 MG IVP (11:51)
[2024-06-22 12:00] VITALS: BP 97/60; PULSE 59; RESP 19; TEMP 36.4; O2SAT 92
--- NOTE | 2024-06-22 12:43 | PC.NURSE ---
Discharge Note Patient discharged to home via private vehicle accompanied by . Discharge instructions reviewed with patient and/or field representative/health education. Mobile pharmacy medications and/or prescriptions provided. Belongings/home medications returned.
[2024-06-22 12:44] VITALS: BP 97/60; PULSE 59; RESP 19; TEMP 36.6; O2SAT 92
--- NOTE | 2024-06-22 13:26 | P.DS_ITS ---
Discharge Providers Date of Admission: 06/18/24 14:30 Date of Discharge: June 22, 2024 Attending Provider at Admission: Arturo Lou MD Attending Provider at Discharge: Stephanie Diaz MD Primary Care Provider: Gilbert Dempsey DO Diagnoses at Discharge Discharge Diagnosis (1) CHF (congestive heart failure): Status: Acute Qualifiers: Heart failure type: systolic Heart failure chronicity: chronic Qualified Code(s): I50.22 - Chronic systolic (congestive) heart failure (2) HTN (hypertension): Status: Chronic Qualifiers: Hypertension type: essential hypertension Qualified Code(s): I10 - Essential (primary) hypertension (3) Dyslipidemia: Status: Acute (4) Atrial fibrillation: Status: Acute Qualifiers: Atrial fibrillation type: unspecified Qualified Code(s): I48.91 - Unspecified atrial fibrillation Permanent problem details: A. fib with slow ventricular rate (5) Pacemaker: Status: Acute (6) Elevated brain natriuretic peptide (BNP) level: Status: Acute Reason for Visit Reason for Visit: weakness Hospital Course Hospital Course Artis Boston is a 84 year old male with hx of HFrEF, CAD with hx of CABG on eliquis, afib with pacemaker, DM2, hypothyroidism presents to ED s/p fall at home. pt was at home, slid off bed and onto the floor, landed on his backside and side, no head-strike. When EMS arrived they noticed chantel was hypoxic with an sp02 in mid 80's, was place don 2.5L NC. Blood work showed elevated WBC with a LEFT shift, and a lactic acid of 2.4. he was found to be positive for rhino/enterovirus. Chest x-ray showed multiple granulomas at the right lung base. No obvious consolidation was found, however patient was persistently coughing therefore due to concern for developing pneumonia antibiotics were added. He received ceftriaxone and azithromycin which has been transitioned to Augmentin at the time of discharge. He was found to have an elevated BNP and clinical signs of acute on chronic systolic exacerbation CHF. He received diuresis with IV Lasix 40 mg every 12 hours and has been transitioned to Lasix 40 mg p.o. daily. He is clinically euvolemic. Kidney function remained stable during the course of admission. Cardiology service was consulted due to new decompensation of CHF and elevated troponins. No ischemic workup recommended for now. Likely troponin leak is related to CHF exacerbation and acute stressors with viral illness. Recommended to follow-up with cardiology as an outpatient in the next 7 to 10 days. Additionally follow-up with primary care physician to reassess Lasix dosing in the next week. Physical Exam Narrative: General: No acute distress, AO x3 HEENT: PERRLA, pupils bilaterally equal and reactive, pallors not present Chest: Normal vesicular breath sounds, no added sounds, equal good air entry bilaterally CVS: S1-S2 regular, no murmurs, no tachycardia, no gallops, no rubs Abdomen: Soft, nontender, no organomegaly, bowel sounds present Neuro: No focal deficits, no facial deformity, AO x3, power 5/5 in all limbs Discharge Data Studies Completed and Pending Completed Studies During Hospitalization Category Date Time Status XR chest 1V [id number] AM LABS Exams 06/19/24 04:00 Completed XR chest 1V portable [id number] Stat Exams 06/18/24 10:31 Completed CV. echo complete* [id number] Urgent Ultrasound 06/18/24 14:52 Completed Pending at discharge Category Date Time Status Beta-Hydroxybutyrate Routine Lab 06/18/24 12:06 Received Blood Culture Stat Lab 06/18/24 10:44 Results Radiology Impressions Chest X-Ray 06/19/24 04:00 IMPRESSION: No acute chest pathology identified. Laboratory Results WBC 7.84 10^3/uL (3.29-11.43) 06/22/24 05:43 RBC 4.28 10^6/uL (3.85-5.65) 06/22/24 05:43 Hgb 13.40 g/dL (11.27-16.99) 06/22/24 05:43 Hct 41.0 % (37-53) 06/22/24 05:43 MCV 95.8 fl (82-101) 06/22/24 05:43 MCH 31.3 pg (27-33) 06/22/24 05:43 MCHC 32.7 g/dL (30-55) 06/22/24 05:43 RDW 13.1 % (12.1-15.1) 06/22/24 05:43 Plt Count 210 10^3/cmm (157-399) 06/22/24 05:43 MPV 11.6 fL (7.4-10.4) H 06/22/24 05:43 Neut % (Auto) 61.3 % 06/22/24 05:43 Lymph % (Auto) 26.1 % 06/22/24 05:43 Murray % (Auto) 9.7 % 06/22/24 05:43 Eos % (Auto) 1.9 % 06/22/24 05:43 Baso % (Auto) 0.4 % 06/22/24 05:43 Neut # (Auto) 4.80 10^3/uL (1.8-7.7) 06/22/24 05:43 Lymph # (Auto) 2.1 10^3/uL (0.8-4.8) 06/22/24 05:43 Murray # (Auto) 0.8 10^3/uL (0.2-0.9) 06/22/24 05:43 Eos # (Auto) 0.2 10^3/uL (0.0-0.8) 06/22/24 05:43 Baso # (Auto) 0.0 10^3/uL (0.0-0.1) 06/22/24 05:43 Nucleated RBC % (auto) 0 % 06/22/24 05:43 Nucleated RBCs # 0.0 /100WBC 06/22/24 05:43 PT 18.50 SECONDS (12.1-14.9) H 06/19/24 04:31 INR 1.44 (0.8-1.2) H 06/19/24 04:31 Specimen Type Venous 06/18/24 12:05 Sample Site Not specified 06/18/24 12:05 Mingo Test N/a 06/18/24 12:05 VBG pH 7.35 (7.32-7.42) 06/18/24 12:05 VBG pCO2 43.1 mmHg (41-51) 06/18/24 12:05 VBG pO2 28.9 mmHg (25-40) 06/18/24 12:05 VBG HCO3 23.5 mmol/L (24-28) L 06/18/24 12:05 VBG Base Excess -2.2 mmol/L (-3.0-3.0) 06/18/24 12:05 VBG Hematocrit 42.3 % (42-52) 06/18/24 12:05 O2 Delivery Device Nc 06/18/24 12:05 [employer] Supervisor ID Amh 06/18/24 12:05 Sodium 138 mmol/L (136-145) 06/22/24 05:43 Potassium 3.7 mmol/L (3.5-5.1) 06/22/24 05:43 Chloride 100 mmol/L (98-107) 06/22/24 05:43 Carbon Dioxide 29 mmol/L (22-29) 06/22/24 05:43 Anion Gap 12.7 (5-19) 06/22/24 05:43 BUN 28 mg/dL (8-23) H 06/22/24 05:43 Creatinine 0.8 mg/dL (0.7-1.2) 06/22/24 05:43 GFR Calculation Not Reportable 06/22/24 05:43 Glucose 239 mg/dL (65-115) H 06/22/24 05:43 POC Glucose 207 mg/dL (70-110) H 06/22/24 11:32 Calculated Osmolality 299 mOsm/kg (285-295) H 06/22/24 05:43 Lactic Acid 2.4 mmol/L (0.5-2.2) H 06/18/24 10:42 Lactic Acid (Sepsis) 1.7 mmol/L (0.5-2.2) 06/18/24 13:33 Calcium 9.2 mg/dL (8.5-10.5) 06/22/24 05:43 Phosphorus 2.5 mg/dL (2.5-4.5) 06/19/24 04:31 Magnesium 1.8 mg/dL (1.7-2.3) 06/21/24 02:30 Total Bilirubin 0.6 mg/dL (0.15-1.2) 06/22/24 05:43 AST 18 U/L (0-40) 06/22/24 05:43 ALT 17 U/L (0-41) 06/22/24 05:43 Alkaline Phosphatase 75 U/L (40-130) 06/22/24 05:43 Troponin T Baseline 61 ng/L (0-15) H 06/18/24 10:42 Troponin T 120 Minute 89.35 ng/L (0-15) H 06/18/24 12:06 Delta Troponin T 28.35 ABS# (0-10) H* 06/18/24 12:06 Troponin T Hi Sens 6Hr 136.2 ng/L (0-15) H 06/18/24 16:15 Troponin T Hi Sens 6Hr Delta 75.2 ng/L (0-12) H* 06/18/24 16:15 NT-Pro-B Natriuret Pep 8051 pg/mL (0-450) H 06/19/24 04:31 Total Protein 6.1 g/dL (6.6-8.7) L 06/22/24 05:43 Albumin 3.2 g/dL (3.5-5.2) L 06/22/24 05:43 Globulin 2.9 g/dL (1.3-4.6) 06/22/24 05:43 Procalcitonin 6.08 ng/mL (0-0.5) H 06/19/24 04:31 Urine Color Yellow (Yellow) 06/18/24 10:55 Urine Appearance Clear (CLEAR) 06/18/24 10:55 Urine pH 5.0 (5-7) 06/18/24 10:55 Ur Specific Drury 1.039 (1.005-1.030) H 06/18/24 10:55 Urine Protein Trace (Negative) A 06/18/24 10:55 Urine Glucose (UA) 3+ (Normal) H 06/18/24 10:55 Urine Ketones 3+ (Negative) H 06/18/24 10:55 Urine Blood Negative (Negative) 06/18/24 10:55 Urine Nitrate Negative (Negative) 06/18/24 10:55 Urine Bilirubin Negative (Negative) 06/18/24 10:55 Urine Urobilinogen 1.0 mg/dL (Negative) 06/18/24 10:55 Ur Leukocyte Esterase Negative (Negative) 06/18/24 10:55 Urine RBC 0-2 /hpf (0-2) 06/18/24 10:55 Urine WBC 6-10 /hpf (0-5) 06/18/24 10:55 Ur Squamous Epith Cells 0-5 /hpf (0-5) 06/18/24 10:55 Amorphous Sediment Not Reportable 06/18/24 10:55 Urine Bacteria None seen /hpf (NONE) 06/18/24 10:55 Hyaline Casts 0-4 /lpf H 06/18/24 10:55 Adenovirus (PCR) Not detected (NOT DETECT) 06/18/24 11:20 C. pneumoniae DNA (PCR) Not detected (NOT DETECT) 06/18/24 11:20 Coronavirus 229E (PCR) Not detected (NOT DETECT) 06/18/24 11:20 Human Metapneumovir PCR Not detected (NOT DETECT) 06/18/24 11:20 Influenza A (H1) PCR Not detected (NOT DETECT) 06/18/24 11:20 Influ A (H1/09) PCR Not detected (NOT DETECT) 06/18/24 11:20 Influenza A (H3) PCR Not detected (NOT DETECT) 06/18/24 11:20 Influenza Type A (PCR) Not detected (NOT DETECT) 06/18/24 11:20 Influenza Type B (PCR) Not detected (NOT DETECT) 06/18/24 11:20 M. pneumoniae (PCR) Not detected (NOT DETECT) 06/18/24 11:20 Parainfluenza 1 (PCR) Not detected (NOT DETECT) 06/18/24 11:20 Parainfluenza 2 (PCR) Not detected (NOT DETECT) 06/18/24 11:20 Parainfluenza 3 (PCR) Not detected (NOT DETECT) 06/18/24 11:20 Parainfluenza 4 (PCR) Not detected (NOT DETECT) 06/18/24 11:20 RSV Type A (PCR) Not detected (NOT DETECT) 06/18/24 11:20 RSV Type B (PCR) Not detected (NOT DETECT) 06/18/24 11:20 Entero/Rhino (PCR) Detected (NOT DETECT) A 06/18/24 11:20 SARS-CoV-2 (PCR) Not detected (NOT DETECT) 06/18/24 11:20 Vitals Last Vital Signs Temp 97.9 F 06/22/24 12:44 Pulse 59 L 06/22/24 12:44 Resp 19 H 06/22/24 12:44 BP 97/60 06/22/24 12:44 Pulse Ox 92 06/22/24 12:44 O2 Del Method Room Air 06/22/24 12:00 O2 Flow Rate 2 06/21/24 07:58 Discharge Plan Discharge Patient Disposition: Home Health Service Condition: Stable Prescriptions: New furosemide 40 mg Tablet 40 mg PO DAILY 15 Days Qty: 15 0RF amoxicillin-pot clavulanate 875-125 mg tablet 1 tab PO BID 3 Days Qty: 6 0RF Continued cholecalciferol (vitamin D3) 50 mcg (2,000 unit) capsule 50 mcg PO DAILY folic acid 400 mcg tablet 0.4 mg PO DAILY (DME) soft cervical collar See Rx Instructions .Route .MEDSUPPLY Qty: 1 0RF Rx Instructions: As directed Eliquis 5 mg tablet See Rx Instructions .ROUTE .COMPLEX Qty: 180 3RF Dose Instruction: TAKE 1 TABLET BY MOUTH TWICE DAILY Rx Instructions: TAKE 1 TABLET BY MOUTH TWICE DAILY Jardiance 25 mg tablet 25 mg PO DAILY multivitamin Tablet 1 tab PO QAM zinc acetate 50 mg (zinc) Capsule 100 mg PO DAILY coenzyme Q10 [CoQ-10] 100 mg Capsule 100 mg PO DAILY levothyroxine 137 mcg tablet 137 mcg PO DAILY Rx Instructions: TAKE 1 TABLET DAILY Entresto 97-103 mg tablet 1 tab PO DAILY Rx Instructions: TAKE 1 TABLET ONCE A DAY Discharge Orders: Discharge Order (Routine); Ordered 06/22/24 Ordered By: Stephanie Diaz Referrals: [facility] [Outside] Nubia Valadez NP [Nurse Practitioner, Cardiology] - 06/28/24 2:30 pm Referral Note: hospital discharge follow up for CHF Gilbert Dempsey DO [Primary Care Provider, Family Practice] - 06/30/24 12:40 pm Discharge Diet: Usual diet Discharge Activity: Resume usual activity Patient Instructions: Furosemide (By mouth), Amoxicillin/Clavulanate Potassium (By mouth), CHF Stoplight, Opioid Safety, Pneumonia Stoplight Discharge Attestations Time Spent in Discharge Care*: greater than 30 min Quality Metrics Clinical Quality Measures [ No reported AMI, CVA or VTE this stay] Coding Level of Care Code Acute Code for Chg Fwd Diagnoses Chronic systolic congestive heart failure I50.22 Heart failure type: systolic Heart failure chronicity: chronic Essential hypertension I10 Hypertension type: essential hypertension Dyslipidemia E78.5 Atrial fibrillation, unspecified type I48.91 Atrial fibrillation type: unspecified Pacemaker Z95.0 Elevated brain natriuretic peptide (BNP) level R79.89
[2024-06-22 19:09] LABS: Beta-Hydroxybutyrate 3.03 mmol/L
== END 2024-06-22 13:30 | disposition home health service (06) | DRG 871 ==
LOC: ER 13:14 → CSU 15:03 → MEDSURG 06-21 15:19
PROVIDERS: Admitting Provider Family Medicine; Emergency Provider Student in an Organized Health Care Education/Training Program; PCP Family Medicine; Visit Provider Student in an Organized Health Care Education/Training Program
DX: A41.9 Sepsis, unspecified organism (principal); I50.23 Acute on chronic systolic (congestive) heart failure; J18.9 Pneumonia, unspecified organism; J96.01 Acute respiratory failure with hypoxia; I11.0 Hypertensive heart disease with heart failure; I25.10 Atherosclerotic heart disease of native coronary artery without angina pectoris; I48.91 Unspecified atrial fibrillation; I95.9 Hypotension, unspecified; T50.905A Adverse effect of unspecified drugs, medicaments and biological substances, initial encounter; E09.51 Drug or chemical induced diabetes mellitus with diabetic peripheral angiopathy without gangrene; E03.9 Hypothyroidism, unspecified; B97.89 Other viral agents as the cause of diseases classified elsewhere; E78.5 Hyperlipidemia, unspecified; Z79.01 Long term (current) use of anticoagulants; Z95.0 Presence of cardiac pacemaker; Z95.1 Presence of aortocoronary bypass graft; Z11.52 Encounter for screening for COVID-19; Z79.899 Other long term (current) drug therapy; Z79.890 Hormone replacement therapy; Z79.84 Long term (current) use of oral hypoglycemic drugs; Z88.8 Allergy status to other drugs, medicaments and biological substances
CPT/HCPCS: 36415; 36416; 71045; 80053; 81001; 82010; 82803; 82962; 83605; 83735; 83880; 84100; 84145; 84484; 85025; 85610; 87040; 87486; 87581; 87633; 93005; 93306; 94760; 96365; 96372; 96375; 96376; 99285; J0456; J0696; J1815; J1940; J7030; J7050; J9999; Q0144

== ENCOUNTER → 2024-06-23 10:57 | Outpatient (BNVA) | payer MEDICARE, BC, SELFPAY | PROVIDERS: PCP Family Medicine; Visit Provider Family Medicine | DX: I50.22 Chronic systolic (congestive) heart failure (principal) | CPT/HCPCS: 80048 ==

== ENCOUNTER → 2024-06-27 14:17 | Outpatient (BNVA) | payer MEDICARE, BC, SELFPAY | PROVIDERS: PCP Family Medicine; Referring Provider Family Medicine; Visit Provider Psychiatry & Neurology Neurology | DX: G62.9 Polyneuropathy, unspecified (principal); M54.6 Pain in thoracic spine; M79.604 Pain in right leg; M79.605 Pain in left leg; R29.818 Other symptoms and signs involving the nervous system; R20.2 Paresthesia of skin | CPT/HCPCS: 99212 ==

== ENCOUNTER → 2024-06-28 14:15 | Outpatient (BNVA) | payer MEDICARE, BC, SELFPAY | PROVIDERS: PCP Family Medicine; Visit Provider Nurse Practitioner Family | DX: Z09 Encounter for follow-up examination after completed treatment for conditions other than malignant neoplasm (principal); I11.0 Hypertensive heart disease with heart failure; I50.22 Chronic systolic (congestive) heart failure; I25.118 Atherosclerotic heart disease of native coronary artery with other forms of angina pectoris; E78.5 Hyperlipidemia, unspecified; I48.91 Unspecified atrial fibrillation; I25.5 Ischemic cardiomyopathy; Z95.0 Presence of cardiac pacemaker; Z79.01 Long term (current) use of anticoagulants | CPT/HCPCS: 99214 ==

== ENCOUNTER → 2024-06-30 13:29 | Outpatient (BNVA) | payer MEDICARE, BC, SELFPAY | PROVIDERS: PCP Family Medicine; Visit Provider Family Medicine | DX: I50.22 Chronic systolic (congestive) heart failure (principal) | CPT/HCPCS: 80048 ==

== ENCOUNTER 2024-07-05 09:24 | Outpatient (CLI) | payer MEDICARE, BC, SELFPAY ==
--- NOTE | 2024-07-05 10:15 | CT_ITS ---
WS: [id number] CT THORACIC SPINE HISTORY: M54.6 - Pain in thoracic spine TECHNIQUE: Contiguous 2.5 mm axial images are reviewed to thoracic spine. Images are reformatted in sagittal and coronal planes. All CT scans at [facility] use at least one of these dose optimization techniques: automated exposure control; mA and/or kV adjustment per patient size (includes targeted exams where dose is matched to clinical indication); or iterative reconstruction. DLP: 571.21 mGy.cm COMPARISON: None available. Mild increase in thoracic kyphosis. Bones are osteopenic. No fractures in the thoracic vertebral bodies. Disc spaces are all narrowed. Slightly greater narrowing at T7-8. Mild curvature and scoliosis. No high-grade central stenosis. No high-grade foraminal stenosis and no large disc protrusions. Benign calcified pulmonary granulomas scattered throughout the visualized lungs. RIGHT low-attenuation renal mass probably a cyst. No adrenal mass. Prior median sternotomy. Bilateral humeral head prostheses. CT/CT thoracic spin wo con* [id number] IMPRESSION: 1. Osteopenia and mild increase in thoracic kyphosis. 2. No thoracic spine compression fractures. 3. No high-grade central or foraminal stenosis. 4. Most significant disc space narrowing is at T7-8.
== END 2024-07-05 09:25 | disposition home or self-care (01) ==
LOC: RAD 09:25
PROVIDERS: PCP Family Medicine; Visit Provider Orthopaedic Surgery
DX: M43.8X4 Other specified deforming dorsopathies, thoracic region (principal); M85.88 Other specified disorders of bone density and structure, other site; M40.294 Other kyphosis, thoracic region; M51.34 Other intervertebral disc degeneration, thoracic region; J84.10 Pulmonary fibrosis, unspecified; R93.421 Abnormal radiologic findings on diagnostic imaging of right kidney; Z98.890 Other specified postprocedural states; Z96.619 Presence of unspecified artificial shoulder joint
CPT/HCPCS: 72128

== ENCOUNTER → 2024-07-06 12:42 | Outpatient (BNVA) | payer MEDICARE, BC, SELFPAY | PROVIDERS: PCP Family Medicine; Visit Provider Podiatrist Foot & Ankle Surgery | DX: G62.9 Polyneuropathy, unspecified (principal); R60.9 Edema, unspecified; E11.42 Type 2 diabetes mellitus with diabetic polyneuropathy | CPT/HCPCS: 99203 ==

== ENCOUNTER 2024-07-19 08:42 | Outpatient (CLI) | payer MEDICARE, BC, SELFPAY ==
--- NOTE | 2024-07-19 08:46 | CT_ITS ---
WS: [id number] CT LUMBAR SPINE MYELOGRAM TECHNIQUE: CT MYELOGRAM of the lumbar spine with coronal and sagittal reformatted images. CLINICAL INFORMATION: M54.50 - Low back pain, unspecified COMPARISON: None. DLP: 362.[address] scans at [facility] use at least one of these dose optimization techniques: automated exposure control; mA and/or kV adjustment per patient size (includes targeted exams where dose is matched to clinical indication); or iterative reconstruction. FINDINGS: Lumbar scoliosis convex LEFT. Stable anterolisthesis L5 on S1 measuring 9.8 mm. Laminectomy defects L3-L5 with dorsal lateral bone graft material. L1-L2: Slight retrolisthesis. Disc osteophyte complex with narrowing of the RIGHT greater than LEFT subarticular recess. Moderate facet arthropathy. Moderate bilateral bony foraminal narrowing RIGHT greater than LEFT. L2-L3: Slight retrolisthesis. Disc osteophyte complex with moderate central canal stenosis. Facet arthropathy with uncovertebral joint hypertrophy. Moderate RIGHT and mild LEFT foraminal narrowing. L3-L4: Disc space ankylosis. Spinal canal has been decompressed. Mild RIGHT foraminal narrowing. Advanced facet arthropathy. L4-L5: Spinal canal is patent. Mild bilateral bony foraminal narrowing. Advanced facet arthropathy. L5-S1: Grade 1 anterolisthesis. Disc osteophyte complex with mild LEFT greater than RIGHT foraminal narrowing. Visualized pelvic bony structures: Normal. Paravertebral soft tissues: Normal. Small RIGHT renal cyst. CT/CT lumbar spine w con [id number] IMPRESSION: 1. Lumbar scoliosis convex LEFT. 2. Stable grade 1 anterolisthesis L5 on S1 measuring 9.8 mm. 3. Moderate central canal stenosis L2-3. 4. Spinal canal is patent L3-L5 with laminectomy defects. 5. Mild to moderate bony foraminal narrowing worse at RIGHT L1-2, RIGHT L2-3, bilateral L4-5 and LEFT L5-S1
--- NOTE | 2024-07-19 09:00 | IR_ITS ---
WS: [id number] MYELOGRAM LUMBAR SPINE Fluoroscopic guided lumbar myelogram CLINICAL INFORMATION: back pain TECHNIQUE: The procedure, including risks, benefits, and complications, were discussed with the patient who agreed to proceed. A timeout was performed to confirm correct patient, procedure, and site. Using sterile technique, the patient was prepped and draped in the usual sterile fashion. After administration of local anesthesia using 1% preservative-free lidocaine and using fluoroscopic guidance, a 22-gauge spinal needle was advanced into the subarachnoid space at the L2-3 level. Subsequently 13 cc of Omnipaque 240 was administered into the thecal sac. The needle was removed and hemostasis was achieved. Spot fluoroscopic images were obtained. FLUOROSCOPIC TIME: 4min [id number] # of spot films: 7 Osteopenia. Laminectomy defects lower lumbar spine. Lumbar scoliosis. Exaggeration of the normal lumbar lordosis. Multilevel degenerative disc disease. Retrolisthesis T12 on L1 and L1 on L2 and L2 on L3. Grade 1-2 anterolisthesis L5 on S1. Dorsal lateral bone graft material IR/IR myelogram sp lumbar [id number] IMPRESSION: 1. Uncomplicated lumbar myelogram. 2. Please see CT myelogram for anatomic detail.
[2024-07-19] MEDS: iohexol 240 mg/mL 50 mL Btl 20 ML INTRATHECA (11:31)
== END 2024-07-19 08:43 | disposition home or self-care (01) ==
PROVIDERS: PCP Family Medicine; Visit Provider Orthopaedic Surgery
DX: M48.062 Spinal stenosis, lumbar region with neurogenic claudication (principal); M85.88 Other specified disorders of bone density and structure, other site; M96.89 Other intraoperative and postprocedural complications and disorders of the musculoskeletal system; M41.86 Other forms of scoliosis, lumbar region; R93.7 Abnormal findings on diagnostic imaging of other parts of musculoskeletal system; M51.369 Other intervertebral disc degeneration, lumbar region without mention of lumbar back pain or lower extremity pain; M43.15 Spondylolisthesis, thoracolumbar region; M43.16 Spondylolisthesis, lumbar region; M43.17 Spondylolisthesis, lumbosacral region; Z96.7 Presence of other bone and tendon implants; M48.07 Spinal stenosis, lumbosacral region; M25.78 Osteophyte, vertebrae; M47.896 Other spondylosis, lumbar region; M43.26 Fusion of spine, lumbar region; N28.1 Cyst of kidney, acquired
CPT/HCPCS: 62304; 72132; Q9966

== ENCOUNTER 2024-07-26 10:01 | Outpatient (CLI) | payer MEDICARE, BC, SELFPAY ==
--- NOTE | 2024-07-26 10:08 | USR_ITS ---
PROCEDURE INFORMATION: Exam: US Bilateral Noninvasive Physiologic Study of the Lower Extremity Arteries, Limited Exam date and time: 07/26/2024 9:59 AM Age: 84 years old Clinical indication: Pain; Leg, lower; Bilateral; Additional info: Atherosclerosis TECHNIQUE: Imaging protocol: Bilateral Limited bilateral noninvasive physiologic studies of lower extremity arteries to assess GUZMAN. COMPARISON: [place] [id number] 05/26/2024 12:35 PM FINDINGS: Right femoral arteries: Normal waveform morphology and amplitude. Right Ankle-Brachial Index: Unable to be evaluated in the posterior tibial and dorsalis pedis arteries due to noncompressible artery and systolic blood pressure >220. 1.05 in the digit. Left Ankle-Brachial Index: Unable to be evaluated in the posterior tibial artery due to noncompressible artery and systolic blood pressure >220. 1.34 in the dorsalis pedis artery and 0.78 along the digit. US/CV ankle brachial index [id number] IMPRESSION: Right posterior tibial and dorsalis pedis arteries and left posterior tibial arteries noncompressible, likely due to severe atherosclerotic disease. Left GUZMAN along the dorsalis pedis artery within normal limits.
== END 2024-07-26 10:02 | disposition home or self-care (01) ==
PROVIDERS: PCP Family Medicine; Visit Provider Student in an Organized Health Care Education/Training Program
DX: I70.213 Atherosclerosis of native arteries of extremities with intermittent claudication, bilateral legs (principal); R93.89 Abnormal findings on diagnostic imaging of other specified body structures
CPT/HCPCS: 93922

== ENCOUNTER 2024-07-29 09:03 | Outpatient (CLI) | payer MEDICARE, BC, SELFPAY ==
--- NOTE | 2024-07-29 09:11 | USR_ITS ---
PROCEDURE INFORMATION: Exam: US Duplex Lower Extremity Veins, Bilateral Exam date and time: 07/29/2024 9:30 AM Age: 84 years old Clinical indication: Edema, localized; Lower extremity, bilateral; Additional info: Localized edema TECHNIQUE: Imaging protocol: Real-time duplex ultrasound of the bilateral extremities with 2-D joseph scale, color Doppler flow and spectral waveform analysis including responses to compression and other maneuvers (when performed) with image documentation. Complete exam focused on the lower extremity veins. COMPARISON: US Lower Arterial 07/26/2024 9:59 AM FINDINGS: Right deep veins: Unremarkable. The common femoral, femoral, proximal profunda femoral, popliteal, and infrapopliteal veins are patent without thrombus. Normal Doppler waveforms. Normal compressibility and/or augmentation response. Left deep veins: Unremarkable. The common femoral, femoral, proximal profunda femoral, popliteal, and infrapopliteal veins are patent without thrombus. Normal Doppler waveforms. Normal compressibility and/or augmentation response. Superficial veins: Greater saphenous veins at the saphenofemoral junctions are patent bilaterally without thrombus. Soft tissues: Unremarkable. US/CV taran dup insuanthony [facility] [id number] IMPRESSION: No evidence of deep vein thrombosis in either lower extremity.
== END 2024-07-29 09:04 | disposition home or self-care (01) ==
LOC: RAD 09:04
PROVIDERS: PCP Family Medicine; Visit Provider Student in an Organized Health Care Education/Training Program
DX: R60.0 Localized edema (principal)
CPT/HCPCS: 93970

== ENCOUNTER 2024-08-09 08:05 | Outpatient (CLI) | payer MEDICARE, BC, SELFPAY ==
--- NOTE | 2024-08-09 08:30 | USCV_ITS ---
Artis [place] Age: 84 Gender: M : 1940 Exam Date: 08/09/2024 08:30 Ordering Phys: Nubia Valadez NP Technologist: VINEET [place] [facility] [place]: Systolic Heart Failure BP: 114 / 76 HR: Rhythm: Sinus Technical Quality: Adequate MEASUREMENTS (Male / Female) Normal Values 2D ECHO LV Diastolic Diameter PLAX 6.0 cm 4.2 - 5.9 / 3.9 - 5.3 cm IVS Diastolic Thickness 1.3 cm 0.6 - 1.0 / 0.6 - 0.9 cm IVS Systolic Thickness 1.6 cm LVPW Diastolic Thickness 1.1 cm 0.6 - 1.0 / 0.6 - 0.9 cm LVPW Systolic Thickness 1.9 cm LVOT Diameter 2.1 cm LV Ejection Fraction 2D Teich 31.2 % LV Ejection Fraction MOD 4C 31.2 % LV Ejection Fraction MOD 2C 41.1 % LV Ejection Fraction 2C AL 37.0 % LA Diameter 5.9 cm RA Systolic Volume 4C AL 96.1 ml RA Systolic Volume 4C MOD 91.3 ml LA Sys Volume AL 83.0 cm cubed LA Sys Volume Index AL 42.1 cm cubed/m squared Aorta at Sinotubular Diameter 2.7 cm M-MODE LA Ao Ratio MM 1.8 AV Cusp Separation MM 1.8 cm FINDINGS Left Ventricle Dilated left ventricle with diffuse hypokinesia.. Left ventricular ejection fraction of around 31%. Right Ventricle Normal RV size with mild diffuse hypokinesia. Slightly diminished ejection fraction Right Atrium Severely increased right atrial size. Left Atrium Severely increased left atrial volume 42 ml/m squared. Mitral Valve No gross abnormalities noted Aortic Valve No gross abnormalities noted Tricuspid Valve No gross abnormalities noted Pulmonic Valve Pulmonic valve not well visualized. Pericardium No pericardial effusion. Aorta Normal ascending aorta dimension. IVC Inferior vena cava not visualized. CONCLUSIONS Dilated left ventricle with diffuse hypokinesia.. Left ventricular ejection fraction of around 31%. Severe biatrial enlargement. RV ejection fraction around 31%. Normal RV size with mild diffuse hypokinesia. Slightly diminished ejection fraction No intracardiac masses. No pericardial effusion. Compared to study from 06/18/2024. There is slight drop in the LV ejection fraction Dr Elvira Malave MD FACC (Electronically Signed) Final Date: 10 August 2024 08:41 S
== END 2024-08-09 08:06 | disposition home or self-care (01) ==
PROVIDERS: PCP Family Medicine; Visit Provider Nurse Practitioner Family
DX: I50.22 Chronic systolic (congestive) heart failure (principal); I51.89 Other ill-defined heart diseases; I51.7 Cardiomegaly; M48.062 Spinal stenosis, lumbar region with neurogenic claudication
CPT/HCPCS: 93308; 99213

== ENCOUNTER → 2024-08-29 10:49 | Outpatient (BNVA) | payer MEDICARE, BC, SELFPAY | PROVIDERS: PCP Family Medicine; Visit Provider Internal Medicine Cardiovascular Disease | DX: I11.0 Hypertensive heart disease with heart failure (principal); I50.22 Chronic systolic (congestive) heart failure; I25.5 Ischemic cardiomyopathy; I25.10 Atherosclerotic heart disease of native coronary artery without angina pectoris; E78.5 Hyperlipidemia, unspecified; I48.91 Unspecified atrial fibrillation; Z79.01 Long term (current) use of anticoagulants; M79.605 Pain in left leg; M79.604 Pain in right leg; Z95.1 Presence of aortocoronary bypass graft; R06.02 Shortness of breath | CPT/HCPCS: 36415; 80048; 83880; 99214 ==

== ENCOUNTER 2024-09-27 09:18 | Outpatient (CLI) | payer MEDICARE, BC, SELFPAY ==
[2024-09-27 10:50] LABS: Anion Gap 15.4 (5-19); Blood Urea Nitrogen 26 mg/dL (8-23); Calcium 9.7 mg/dL (8.5-10.5); Carbon Dioxide 28 mmol/L (22-29); Chloride 102 mmol/L (98-107); Glucose 173 mg/dL (65-115); NT Pro B Type Natriuretic Pept 1462 pg/mL (0-450); Osmolality Calculated 301 mOsm/kg (285-295); Potassium 4.4 mmol/L (3.5-5.1); Sodium 141 mmol/L (136-145)
== END 2024-09-27 09:19 | disposition home or self-care (01) ==
LOC: LAB 09:21
PROVIDERS: PCP Family Medicine; Visit Provider Internal Medicine Cardiovascular Disease
DX: I50.22 Chronic systolic (congestive) heart failure (principal)
CPT/HCPCS: 36415; 80048; 83880

== ENCOUNTER → 2024-10-10 10:51 | Outpatient (BNVA) | payer MEDICARE, BC, SELFPAY | PROVIDERS: PCP Family Medicine; Visit Provider Family Medicine | DX: E09.9 Drug or chemical induced diabetes mellitus without complications (principal); R13.10 Dysphagia, unspecified; R79.89 Other specified abnormal findings of blood chemistry | CPT/HCPCS: 80061; 83036 ==

== ENCOUNTER → 2025-01-05 11:18 | Outpatient (BNVA) | payer MEDICARE, BC, SELFPAY | PROVIDERS: PCP Family Medicine; Visit Provider Family Medicine | DX: E09.9 Drug or chemical induced diabetes mellitus without complications (principal); E78.5 Hyperlipidemia, unspecified; G62.9 Polyneuropathy, unspecified; R60.9 Edema, unspecified | CPT/HCPCS: 80053; 80061; 82607; 83036 ==

== ENCOUNTER → 2025-02-21 10:58 | Outpatient (BNVA) | payer MEDICARE, BC, SELFPAY | PROVIDERS: PCP Family Medicine; Visit Provider Family Medicine | DX: S92.352A Displaced fracture of fifth metatarsal bone, left foot, initial encounter for closed fracture (principal); W19.XXXA Unspecified fall, initial encounter | CPT/HCPCS: 73620 ==